=== PATIENT | female | born 1995 | race Caucasian/White ===

== ENCOUNTER 2017-11-17 20:17 | Emergency (ER) | payer MEDICAID, SELFPAY ==
[2017-11-17 20:17] VITALS: BP 124/64; PULSE 79; RESP 14; TEMP 36.6; O2SAT 98; BMI 30.2
--- NOTE | 2017-11-17 21:51 | ED.DCSUM_ITS ---
- ER Visit Summary Date of Service: 11/17/17 Chief Complaint: Headache History of Present Illness: The patient is a [address] Patient states in the last several months she has been getting headaches usually they are unilateral. Associated with photophobia. Denies any head trauma. On no blood thinners. No family history of intracranial bleeds or brain aneurysms. No significant family history of migraines. She denies any fever. Denies any neck pain. Denies any sinus congestion. Physical Examination: Vital signs stable afebrile. Well-appearing young female. No acute distress. Sitting in a darkened room. HEENT exam unremarkable. Pupils round reactive light. No signs of trauma. No facial droop. Normal speech. No sinus tenderness. Neck nontender. No meningismus. Able to easily flex and touch her chin to chest. Lungs clear to auscultation. Heart regular rhythm no murmur. Abdomen soft nontender. Moving all 4 extremities. Neurologically she is awake alert no focal motor or sensory deficits. Fingertip to nose heel to jones all within normal limits. NIH is 0. Test Results: None Emergency Department Course and Treatment: Patient treated his migraine headache. 1 L normal saline. IV Toradol, Benadryl and Zofran. Treatment Plan: Repeat exam at 2301 patient is doing well. Headache is resolved post medication. Neurologic exam is unchanged and remains normal. She is comfortable being discharged home. I will write her for Imitrex as needed for recurrent headaches. Disposition: Discharge Impression: Acute cephalgia Acute migraine headache This note was generated with [employer] dictation software. It may contain incorrect words, spelling, and punctuation that were not noted in review of the chart prior to signing ED Disposition - Plan for ED Patient: Chief Complaint: Headache Referrals: Care Physician,No Primary [Primary Care Provider] -
[2017-11-17] MEDS: DiphenhydrAMINE 50 MG/ML Syringe 25 MG IV (22:01)
[2017-11-17] MEDS: 0.9% Normal Saline 1,000 ML 1000 ML IV (22:01)
[2017-11-17] MEDS: Ketorolac 30 MG/ML Syringe IV (22:01)
[2017-11-17] MEDS: Ondansetron 4 MG/2 ML Vial IV (22:01)
--- NOTE | 2017-11-17 23:04 | ED.DEP ---
ED Disposition - Plan for ED Patient: Disposition: Home or Assisted Living Chief Complaint: Headache Instructions: ED Headache Migraine Prescriptions: Sumatriptan Succinate [Imitrex] 25 mg PO Q2H PRN PRN #10 tab PRN Reason: migraine headache Referrals: Nayan King MD [STAFF PHYSICIAN] - 1 Week if not improving Additional Instructions: Imitrex as needed for recurrent headaches. Follow-up with a local primary care physician. If headaches are getting worse or you develop other symptoms such as weakness you may need a CAT scan or MRI of the brain.
[2017-11-17 23:11] VITALS: BP 118/76; PULSE 77; RESP 16; O2SAT 98
== END 2017-11-17 23:13 | disposition home or self-care (01) ==
PROVIDERS: Emergency Provider Emergency Medicine
DX: G43.909 Migraine, unspecified, not intractable, without status migrainosus (principal)
CPT/HCPCS: 96361; 96374; 96375; 99283; J7030; J2405

== ENCOUNTER 2018-03-23 17:52 | Emergency (ER) | payer MEDICAID, SELFPAY ==
[2018-03-23 17:53] VITALS: PULSE 81; RESP 14; TEMP 36.2; O2SAT 100; BMI 28.8
[2018-03-23] MEDS: Ketorolac 30 MG/ML Syringe IV (18:53)
[2018-03-23] MEDS: Metoclopramide 10 MG/2 ML Vial IV (18:53)
[2018-03-23] MEDS: 0.9% Normal Saline 1,000 ML 999 ML IV (18:53)
--- NOTE | 2018-03-23 19:13 | ED.DCSUM_ITS ---
- ER Visit Summary Date of Service: 03/23/18 Chief Complaint: Headache History of Present Illness: The patient is a 22 F with no primary care physician. She reports that he has headache that began 2 days ago. Some intermittent pain last 30 seconds at a time. To the left parietal area and radiates to the right parietal area. She reports stated 10 or 7-10 currently. Is worsened by coughing and relieved by nothing. She had nausea without vomiting. No change in her vision. No numbness or weakness. No fever or chills. Patient reports that she fell approximate 1 week ago while going up the stairs. She did hit her head. She did have a loss of consciousness. She reports that she is not having any headache following this until 2 days ago. Physical Examination: Vitals: Stable. Afebrile. General: Well-nourished and well-developed. Head: Normocephalic atraumatic. Neck: Supple, no lymphadenopathy. No JVD. Nontender. Cardiovascular: Regular rate and rhythm. No murmurs. Respiratory: No respiratory distress. Clear to auscultation bilaterally. Abdominal: Soft, nontender, nondistended, normal bowel sounds. No guarding, rebound, or peritoneal signs. Back: Nontender. Extremities: Nontender, no edema. Skin: Normal color, no rash. Neurologic: Alert and oriented ?3. Cranial nerves II through XII are intact. Normal strength and sensation. Psych: Normal affect. Emergency Department Course and Treatment: Patient had an IV placed. She was given Toradol and Reglan IV. She had significant relief. Treatment Plan: Patient be discharged instructions to follow-up the [facility] in 1-2 days if not improving. Return to the emergency department for any worsening symptoms. Disposition: To home in improved and stable condition. Impression: 1 1. Cephalgia, acute. This note was generated with [employer] dictation software. It may contain incorrect words, spelling, and punctuation that were not noted in review of the chart prior to signing ED Disposition - Plan for ED Patient: Disposition: Home or Assisted Living Chief Complaint: Headache Instructions: ED Cephalgia Unspecified Referrals: Nayan King MD [STAFF PHYSICIAN] - 1-2 Days if not improving
[2018-03-23 19:44] VITALS: BP 114/79; PULSE 73; RESP 16; O2SAT 100
--- NOTE | 2018-03-23 19:45 | ED.RN ---
THIS NURSE REVIEWED D/C INSTRUCTIONS WITH PT. PT VERBALIZED UNDERSTANDING OF INSTRUCTIONS. IV D/C. IV CATHETER INTACT. PT TOLERATED WELL. PT DENIES FURTHER NEEDS OR QUESTIONS AT THIS TIME
== END 2018-03-23 19:47 | disposition home or self-care (01) ==
LOC: ED 18:43
PROVIDERS: Emergency Provider Emergency Medicine
DX: R51 Headache (principal)
CPT/HCPCS: 96361; 96374; 96375; 99283; J7030

== ENCOUNTER 2018-05-06 08:39 | Emergency (ER) | payer MEDICAID, SELFPAY ==
[2018-05-06 08:40] VITALS: BP 158/80; PULSE 121; RESP 16; TEMP 36.6; O2SAT 97; BMI 27.9
--- NOTE | 2018-05-06 08:48 | RAD_ITS ---
STUDY: X-RAY CHEST REASON FOR EXAM: Female, 22 years old. Dysphagia. Cough. TECHNIQUE: PA and lateral views of the chest. COMPARISON: None. FINDINGS: The lungs are clear and expanded. There is no demonstrated pleural abnormality. Normal size heart. Normal mediastinum and whit. Normal visualized pulmonary arteries. Normal visualized aortic arch and descending thoracic aorta. Normal visualized thoracic spine. Normal visualized ribs, clavicles, and shoulders. There is no demonstrated abnormality of the visualized soft tissue structures of the upper abdomen. RAD/Chest PA and Lateral IMPRESSION: Normal x-ray examination of the chest. Electronically Signed: Jan Sharma, at 10:10 EDT , Service support ,
[2018-05-06] MEDS: Acetaminophen 500 MG Tablet 1000 MG PO (09:02)
[2018-05-06 09:04] VITALS: BP 140/75; PULSE 121; RESP 16; TEMP 37.3; O2SAT 97
--- NOTE | 2018-05-06 09:06 | ED.DCSUM_ITS ---
- ER Visit Summary Date of Service: 05/06/18 Chief Complaint: Flulike illness History of Present Illness: The patient is a 22 F presents to the emergency department with flulike illness. Patient was in her normal state of health. On Friday, she began to have fevers, chills, myalgias, mild sore throat. She had a nonproductive cough. She states the fever will wax and wane. Her young son is sick with similar symptoms. She was not vaccinated. The patient is otherwise healthy. She has no history of immunosuppression. She is on no daily medications. She denies any underlying history of lung disease. Physical Examination: Vital signs reviewed General: Well-nourished, well-developed Head: Normocephalic, atraumatic Eyes: Pupils equal and reactive, extraocular muscles intact Neck, supple, no lymphadenopathy Heart: Regular rate and rhythm Respiratory: No distress, clear bilaterally Abdomen: Soft, nontender, nondistended, no peritoneal signs Back: Nontender Extremities: Nontender, no edema, no cords Skin: Normal color no rash Neuro: Alert and oriented, no focal or lateralizing deficits Test Results: [] Emergency Department Course and Treatment: The patient presents with symptoms of influenza. She also has a small lesion inside her right lower lip. She states that it was painful and she took out her lip piercing. She states that she began to have some swelling at the area. It does look like he is small abscess that is not actively draining. It is less than a centimeter. I do not feel the primary incision and drainage is necessary at this time. There is no cellulitis. I am going to place the patient on Bactrim for this. I did obtain a chest x-ray and a rapid flu. Both were unremarkable. The patient has had symptoms for 4 days now. She is outside the window for treatment with Tamiflu. She is well-appearing. I do feel that she is safe for outpatient therapy. I did mitochondrial disorders counselor her that if her lip is worsening in any way over the next 24-48 hours to return to the emergency department. She is comfortable with this plan of care. Treatment Plan: [] Disposition: Discharge Impression: 1. Influenza-like illness 2. Right lower lip abscess This note was generated with [employer] software. It may contain incorrect words, spelling, and punctuation that were not noted in review of the chart prior to signing ED Disposition - Plan for ED Patient: Instructions: ED Upper Resp Infec No Abx Tx Prescriptions: Smz/Tmp Ds [Bactrim Ds] 1 tab PO BID #14 tab Referrals: Care Physician,No Primary [Primary Care Provider] -
[2018-05-06 10:44] VITALS: BP 134/79; PULSE 110; RESP 16; TEMP 36.6; O2SAT 99
== END 2018-05-06 10:46 | disposition home or self-care (01) ==
LOC: ED 09:06
PROVIDERS: Emergency Provider Emergency Medicine
DX: J11.1 Influenza due to unidentified influenza virus with other respiratory manifestations (principal); K13.0 Diseases of lips; Z72.0 Tobacco use
CPT/HCPCS: 71046; 87804; 99283

== ENCOUNTER 2021-05-11 14:51 | Emergency (ER) | payer OTHER, SELFPAY ==
[2021-05-11 14:52] VITALS: BP 169/78; PULSE 120; RESP 16; TEMP 36.4; O2SAT 100; BMI 24.0
--- NOTE | 2021-05-11 15:16 | ED.RN ---
called corporate care for drug screen
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
[2021-05-11 17:08] VITALS: BP 124/78; PULSE 66; RESP 14; O2SAT 98
[2021-05-11 18:53] VITALS: BP 126/78; PULSE 78; RESP 16; TEMP 36.9; O2SAT 98
== END 2021-05-11 18:53 | disposition home or self-care (01) ==
PROVIDERS: Emergency Provider Physician Assistant; Visit Provider Physician Assistant
DX: T23.502A Corrosion of first degree of left hand, unspecified site, initial encounter (principal); T22.512A Corrosion of first degree of left forearm, initial encounter; X58.XXXA Exposure to other specified factors, initial encounter
CPT/HCPCS: 99283

== ENCOUNTER 2022-12-21 09:14 | Emergency (ER) | payer OTHER, SELFPAY ==
[2022-12-21 09:14] VITALS: BP 136/86; PULSE 70; RESP 16; TEMP 35.7; O2SAT 100; BMI 26.1
--- NOTE | 2022-12-21 09:26 | ED.VIS.LOWEX ---
HPI History of Present Illness Chief Complaint: Lower Extremity Injury Informant: patient Narrative Narrative: 27-year-old female presenting to the emergency department chief complaint of left foot injury. Patient had a shower door drop onto her left foot this morning. She notes her tetanus is up-to-date. Wound was cleansed with peroxide and bandage applied. She denies other injuries Tetanus Immunization: <5 years PFSH PFSH Medical History no medical history no medical history Home Medications NK 12/21/22 [History Last Taken Unknown] Allergy/AdvReac Type Severity Reaction Status Date / Time No Known Allergies Allergy Verified 05/18/21 17:38 Surgical History History of tonsillectomy Social History Smoking Status: Never smoker ROS ROS ED Constitutional Constitutional ED: Denies chills or weight loss Eyes Eyes: Denies change in vision or diplopia ENT ENT ED: Denies ear pain, rhinorrhea or sore throat Cardiovascular Cardiovascular: Denies chest pain, orthopnea, palpitations or racing heartbeat Respiratory/Chest Respiratory/Chest: Denies cough, dyspnea or orthopnea Gastrointestinal Gastrointestinal: Denies abdominal pain, diarrhea, nausea or vomiting Genitourinary Genitourinary ED: Denies dysuria, hematuria or urinary frequency Musculoskeletal Musculoskeletal: Reports other Details: Left foot pain ; Denies arthralgias or myalgias Integumentary Reports other Details: Foot laceration ; Denies abscess or rash Neurologic Neurologic: Denies headache(s) or weakness Psychiatric Psychiatric: Denies anxiety, depression, suicidal ideation or suicidal thoughts Endocrine Endocrinology: Denies polydipsia, polyphagia or polyuria Allergic/Immunologic Allergic/Immunologic ED: Denies mouth swelling, tongue swelling or urticaria EXAM Physical Exam Const Vital Signs: 12/21/22 09:14 Temperature 96.2 F L Temperature Source Temporal Pulse Rate 70 Respiratory Rate 16 Blood Pressure 136/86 H Blood Pressure Mean 102 Pulse Ox 100 Oxygen Delivery Method Room Air Positive well nourished and well developed General Appearance ED: well developed HEENT Reports normocephalic, head/scalp atraumatic and moist mucous membranes Eyes PERRL and EOMs intact bilaterally Neck no lymphadenopathy, supple and no JVD Resp normal respiratory effort and clear to auscultation bilaterally Cardio regular rate, regular rhythm and no murmurs GI normal to inspection, nondistended, normoactive bowel sounds and non-tender Palpation: soft Back/Spine no CVA tenderness and normal ROM Extremity full ROM; Negative for normal to inspection Extremity Narrative: There is a 3 cm laceration located on the dorsal lateral aspect of the left foot. It is gaping by 5 mm. No active bleeding. There is associated hematoma around the wound. Neurovascularly intact. Ambulates well. General Extremety ED: Negative for edema General Extremity: Negative for edema Neuro oriented x3 and CN's II-XII intact bilaterally Sensorium / Orientation: alert Motor Exam: strength 5/5 throughout Psych mental status grossly normal Mood & Affect: Negative for depressed or tearful Skin no rashes or lesions noted Skin Narrative: see extremity exam Trauma: laceration linear, No actively bleeding, No pulsatile bleeding, No foreign body present, No contaminated, involves subcutaneous tissue, No involves muscle tissue, motor nerve function intact and sensation intact MDM MDM MDM Narrative Medical decision making narrative: My independent interpretation of the three-view left foot x-ray is no acute fracture. Let was applied to the wound. After adequate time the skin around the wound had turned white. Local 1% lidocaine was used to further complete anesthesia of the skin. It was washed with Shur-Clens and explored. It was irrigated no foreign bodies were noted. The wound was closed using a total of 4 simple erupted 4-0 Ethilon sutures. Wound care discussed with patient. Nursing dressed the wound. Stitches will need to be removed in 10 days. Radiography Diagnostic Testing: Clinical Impression(s) from Imaging Studies Foot X-Ray 12/21/22 09:40 IMPRESSION: 1. Lobular soft tissue density is present over the base of the fifth metatarsal, most likely representing some type of bandage material covering the wound. 2. No visualized fracture or radiopaque foreign body. Electronically Signed: Gary Rooney MD at 10:14 EDT , Discharge Plan Triage Chief Complaint: Lower Extremity Injury ED Provider: Nam Malone Dx/Rx/DC Orders Clinical Impression: Contusion of foot, Foot laceration Instructions: ED Foot Contusion, ED Laceration, Foot: All Closures Prescriptions: No Action NK Primary Care Provider: Care Physician,No Primary Referrals: Primo Gupta MD [Med Staff - Research Associate Quality Control Qc] - 10 Day for suture removal Care Physician,No Primary [Primary Care Provider] - Activity Restrictions/Additional Instructions: Stitches will need to be removed in 10 days. Please keep wound clean. Showers and soap are fine. I would apply an antibiotic ointment at least once a day. While wearing socks and shoes please keep a dressing on the wound. Disposition Disposition: Home, Self Care
--- NOTE | 2022-12-21 09:40 | RAD_ITS ---
STUDY: X-RAY - LEFT FOOT CLINICAL: Female, 27 years old. injury TECHNIQUE: 3 view(s) of the foot. COMPARISON: None. FINDINGS: Normal talus, calcaneus, and tarsal bones. No visualized fracture or radiopaque foreign body. Lobular soft tissue density is present over the base of the fifth metatarsal, most likely representing some type of bandage material covering the wound. Normal visualized subtalar, talonavicular, calcaneocuboid, tarsal and tarsometatarsal articulations. Normal metatarsi. Normal metatarsophalangeal joint of the great toe. Normal tibial and fibular sesamoid bones. Normal interphalangeal joint of the great toe. Normal phalanges of the great toe. Normal second through fifth metatarsophalangeal joints. Normal interphalangeal joints and phalanges of the lesser toes. The soft tissue structures are unremarkable. RAD/Foot min 3 Views IMPRESSION: 1. Lobular soft tissue density is present over the base of the fifth metatarsal, most likely representing some type of bandage material covering the wound. 2. No visualized fracture or radiopaque foreign body. Electronically Signed: Gary Rooney MD at 10:14 EDT Reading Location ID and State: [facility] / [place] , Service support ,
[2022-12-21] MEDS: Lidocaine/Epi/Tetracaine 50 ML 1 APPLIC TOPICAL (10:18)
[2022-12-21] MEDS: Lidocaine 1% (20 ml mdv) 20 ML Vial INFILT (10:18)
== END 2022-12-21 10:20 | disposition home or self-care (01) ==
LOC: ED 09:40
PROVIDERS: Emergency Provider Emergency Medicine; Visit Provider Emergency Medicine
DX: S90.32XA Contusion of left foot, initial encounter (principal); S91.312A Laceration without foreign body, left foot, initial encounter; X58.XXXA Exposure to other specified factors, initial encounter
CPT/HCPCS: 12002; 73630; 99285

== ENCOUNTER 2023-01-06 10:49 | Emergency (ER) | payer OTHER, SELFPAY ==
[2023-01-06 10:52] VITALS: BP 118/82; PULSE 74; RESP 18; TEMP 35.8; O2SAT 100; BMI 26.2
--- NOTE | 2023-01-06 11:14 | EDS_ITS ---
HPI <JACOBY Sapp - Last Filed: 01/06/23 11:33> History of Present Illness Chief Complaint: Wound Check Narrative Narrative: 27-year-old female had sutures removed from her left foot on December 31. Over the last couple days it looked red and pus drained from it yesterday. She put peroxide on it and it seems better today but she is here to be evaluated. No fever or chills. She states her right ear also hurts over the last few days. No cold symptoms PFSH <JACOBY Sapp - Last Filed: 01/06/23 11:33> PFSH Home Medications cephalexin 500 mg capsule 500 mg PO Q6 #28 CAPSULES 01/06/23 [Rx Last Taken Unknown] Allergy/AdvReac Type Severity Reaction Status Date / Time No Known Allergies Allergy Verified 01/06/23 10:52 Surgical History History of tonsillectomy Social History Smoking Status: Never smoker ROS <JACOBY Sapp - Last Filed: 01/06/23 11:33> ROS ED ROS Narrative Constitutional: Negative for fever, chills, malaise. ENT: Positive for ear pain. Negative for sore throat, rhinorrhea. Neuro: Negative for motor/sensory dysfunction. Skin: Positive for wound. EXAM <JACOBY Sapp Last Filed: 01/06/23 11:33> Physical Exam Narrative Exam Narrative: CONST: Patient sitting in no acute distress. EYES: Normal inspection. NECK: Normal inspection. ENT: Normal TMs bilaterally, nares clear, normal posterior oropharynx. RESP: No respiratory distress, CTAB. CVS: Regular rate and rhythm, no murmur, no gallop. SKIN: 3 cm healing linear wound dorsal left midfoot with minimal halo of erythema that looks more like healing granulation tissue than infected. No fluctuance or crepitus, no drainage. EXTREMITIES: Normal appearance, 2+ DP pulses NEURO: Oriented x4. PSYCH: Normal affect. Const Vital Signs: 01/06/23 10:52 Temperature 96.5 F L Temperature Source Temporal Pulse Rate 74 Respiratory Rate 18 Blood Pressure 118/82 H Blood Pressure Mean 94 Pulse Ox 100 Oxygen Delivery Method Room Air <Dr. Eze Robbins MD - Last Filed: 01/06/23 11:44> Physical Exam Const Vital Signs: 01/06/23 10:52 Temperature 96.5 F L Temperature Source Temporal Pulse Rate 74 Respiratory Rate 18 Blood Pressure 118/82 H Blood Pressure Mean 94 Pulse Ox 100 Oxygen Delivery Method Room Air [facility] <JACOBY Sapp - Last Filed: 01/06/23 11:33> [facility] Narrative Medical decision making narrative: Patient has a healing wound on left dorsal foot where she had prior sutures. She states pus drained from the area yesterday. There is no evidence of an abscess now. There is minimal surrounding erythema which could be normal healing versus cellulitis. Extremity is neurovascularly intact. I prescribed Keflex with wound care instructions. She also complained of right ear pain but has an unremarkable exam. I recommended Tylenol Motrin and she was discharged in stable condition. <Dr. Eze Robbins MD - Last Filed: 01/06/23 11:44> [facility] Narrative Medical decision making narrative: Patient has a healing wound on left dorsal foot where she had prior sutures. She states pus drained from the area yesterday. There is no evidence of an abscess now. There is minimal surrounding erythema which could be normal healing versus cellulitis. Extremity is neurovascularly intact. I prescribed Keflex with wound care instructions. She also complained of right ear pain but has an unremarkable exam. I recommended Tylenol Motrin and she was discharged in stable condition. I have personally performed a face to face assessment of the patient and have reviewed the MARTI Note. I performed a substantive portion of the visit including all aspects of the following. My thomas findings include: History is 27-year-old female returns for suture removal of the laceration pair of her left foot. Exam is [well-appearing 27-year-old female. Vital signs stable afebrile. Left foot has a well-healed laceration. Currently there is no signs of infection. There is no redness or pus. There is no significant swelling. There is no streaks. Normal DP pulse. She cannot wiggle her left small and fourth toe very well. She will follow-up with that if it does not improve. There was no history of any tendon laceration.] Medical Decision Making [patient be placed on Keflex for 1 week. Outpatient follow-up as needed if she has not had normal range of motion back to her left lateral toes.] Other additions or changes: [None] Discharge Plan Triage Chief Complaint: Wound Check Other Complaint: Ear Problem ED Midlevel Provider: Michelle Zuñiga ED Provider: Eze Robbins Dx/Rx/DC Orders Clinical Impression: Wound of left foot Instructions: Caring for Your Incision Prescriptions: New cephalexin 500 mg capsule 500 mg PO Q6 Qty: 28 0RF Primary Care Provider: Care Physician,No Primary Referrals: Care Physician,No Primary [Primary Care Provider] - Activity Restrictions/Additional Instructions: Gently clean with soap and water and take the antibiotics. If you develop worsening redness, swelling, or fever return to the ER Disposition Disposition: Home, Self Care
[2023-01-06] MEDS: Cephalexin 250 MG Capsule 500 MG PO (12:00)
== END 2023-01-06 12:04 | disposition home or self-care (01) ==
LOC: ED 11:33
PROVIDERS: Emergency Provider Emergency Medicine; Visit Provider Emergency Medicine
DX: S91.302A Unspecified open wound, left foot, initial encounter (principal); X58.XXXA Exposure to other specified factors, initial encounter
CPT/HCPCS: 99283

== ENCOUNTER 2024-05-08 16:08 | Emergency (ER) | payer MEDICAID, SELFPAY ==
[2024-05-08 16:09] VITALS: BP 122/79; PULSE 110; RESP 18; TEMP 36.6; O2SAT 100; BMI 36.8
--- NOTE | 2024-05-08 16:20 | EX.ED.DYSGE1 ---
HPI <JACOBY Sapp - Last Filed: 05/08/24 17:34> History of Present Illness Chief Complaint: Wound Narrative Narrative: 28-year-old female has had 2 dermal piercings in her left arm that were done 5 years ago. They occasionally get irritated and red. This morning one of them started to become red and irritated and she presents requesting to have them removed. The external jewel part of the piercings has fallen off and only posterior remains in the skin. She has no fever chills or drainage from the area. She is currently 33 weeks . PFSH <JACOBY Sapp - Last Filed: 05/08/24 17:34> PFSH Home Medications ?Medication ?Instructions ?Recorded ?Last Taken ?Type aspirin 81 mg tablet,delayed 81 mg PO DAILY 05/08/24 Unknown History release Allergy/AdvReac Type Severity Reaction Status Date / Time No Known Allergies Allergy Verified 05/08/24 16:09 Surgical History History of tonsillectomy Social History Smoking Status: Never smoker ROS <JACOBY Sapp - Last Filed: 05/08/24 17:34> ROS ED ROS Narrative Constitutional: Negative for fever, chills, malaise. GI: Negative for nausea, vomiting. Neuro: Negative for motor/sensory dysfunction. Skin: Negative for rash. EXAM <JACOBY Sapp - Last Filed: 05/08/24 17:34> Physical Exam Narrative Exam Narrative: CONST: Patient sitting in no acute distress. EYES: Normal inspection. NECK: Normal inspection. RESP: No respiratory distress, CTAB. CVS: Regular rate and rhythm, no murmur, no gallop. SKIN: 2 small metal post piercings left shoulder. No surrounding erythema, warmth, fluctuance or drainage. EXTREMITIES: Normal appearance, no pedal edema. NEURO: Alert and answering questions appropriately. PSYCH: Normal affect. Const Vital Signs: 05/08/24 16:09 05/08/24 17:26 Temperature 97.9 F 98.6 F Temperature Source Temporal Pulse Rate 110 H 81 Respiratory Rate 18 18 Blood Pressure 122/79 H 131/54 H Blood Pressure Mean 93 79 Pulse Ox 100 98 Oxygen Delivery Method Room Air <Dr. Eze Robbins MD - Last Filed: 05/08/24 17:25> Physical Exam Const Vital Signs: 05/08/24 16:09 05/08/24 17:26 Temperature 97.9 F 98.6 F Temperature Source Temporal Pulse Rate 110 H 81 Respiratory Rate 18 18 Blood Pressure 122/79 H 131/54 H Blood Pressure Mean 93 79 Pulse Ox 100 98 Oxygen Delivery Method Room Air MDM <Dr. Eze Robbins MD - Last Filed: 05/08/24 17:25> MDM MDM Narrative Medical decision making narrative: I have personally performed a face to face assessment of the patient and have reviewed the MARTI Note. I performed a substantive portion of the visit including all aspects of the following. My thomas findings include: History is 28-year-old female currently 33 weeks . Has 2 dermal piercings on her left shoulder she just 1 to make sure they were not infected. is going well. No bleeding or pain. She is due in June. Exam is [well-appearing 28-year-old female. Vital signs stable afebrile. H EENT exam normal. Lungs clear. Heart regular rhythm no murmur rate about 100. Abdomen soft nontender normal bowel sounds no peritoneal signs. Gravid uterus. Moving all 4 extremities. Neurovascularly intact. Left shoulder 2 piercings small no infection. No cellulitis. No pus or discharge. No discoloration. Nontender. Clinically they look fine.] Medical Decision Making [piercing evaluation nothing needs to be done at this time patient is comfortable with not having them removed.] Other additions or changes: [None] Discharge Plan Triage Chief Complaint: Wound ED Midlevel Provider: Michelle Zuñiga ED Provider: Eze Robbins Dx/Rx/DC Orders Clinical Impression: Encounter for evaluation of wound, Body piercing, Visit for wound care, Third trimester Prescriptions: No Action aspirin 81 mg tablet,delayed release (DR/EC) 81 mg PO DAILY Primary Care Provider: Care Physician,No Primary Referrals: Care Physician,No Primary [Primary Care Provider] - Activity Restrictions/Additional Instructions: I recommend you see a licensed supervisor sterile processing to have these removed. They do not look currently infected. Print Language: Urdu Disposition Disposition: Home, Self Care Discharge Date/Time: 05/08/24 17:32
[2024-05-08 17:26] VITALS: BP 131/54; PULSE 81; RESP 18; TEMP 37; O2SAT 98
== END 2024-05-08 17:32 | disposition home or self-care (01) ==
LOC: ED 16:40
PROVIDERS: Emergency Provider Emergency Medicine; Visit Provider Emergency Medicine
DX: O9A.213 Injury, poisoning and certain other consequences of external causes complicating pregnancy, third trimester (principal); S41.002A Unspecified open wound of left shoulder, initial encounter; Z3A.33 33 weeks gestation of pregnancy; Z79.82 Long term (current) use of aspirin; X58.XXXA Exposure to other specified factors, initial encounter
CPT/HCPCS: 99282

== ENCOUNTER 2024-07-21 07:17 | Inpatient (IN) | payer MEDICAID, SELFPAY ==
[2024-07-21] VITALS (91 sets, daily range): BP systolic 85–177; BP diastolic 44–131; PULSE 65–137; RESP 16–18; TEMP 35.9–38.3; O2SAT 92–100; BMI 34.4
[2024-07-21] MEDS: Lactated Ringers 1,000 ML 50 ML IV (07:50)
[2024-07-21 08:03] LABS: Hematocrit 42.1 % (37-47); Hemoglobin 14.6 g/dL (12.0-15.0); Mean Corp Hgb Conc 34.7 g/dL (32-36); Mean Corpuscular Hgb 30.7 pg (27.0-32.0); Mean Corpuscular Volume 88.4 fL (81-99); POSITIVE COUNT YES; POSITIVE MORPHOLOGY YES; Platelet Count 218 K/mm3 (150-450); RBC Distribution Width CV 14.4 % (11.6-14.6); RBC Distribution Width SD 46.4 fl (35.1-43.9); Red Blood Count 4.76 M/mm3 (4.2-5.4); White Blood Count 14.1 K/mm3 (4.4-11.0)
[2024-07-21 08:05] LABS: Differential Indicated MANUAL DIFF
[2024-07-21] MEDS: 0.9% Normal Saline Single 100 ML IV.SOLN. INTRA-UTER (08:20)
[2024-07-21] MEDS: LACTATED RINGERS 500 ML 999 ML IV ×2 (08:30→21:44)
--- NOTE | 2024-07-21 08:33 | PCM.HP.OB ---
HPI - General General Date of Admission: 07/21/24 HPI Narrative PANCHITO DOLAN, is a 29 F who presents at 41 weeks , son born 8 years ago. Presents for medically necessary induction of labor for postdates. 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 Home Medications ?Medication ?Instructions ?Recorded ?Last Taken ?Type aspirin 81 mg tablet,delayed 81 mg PO DAILY prophylatic 05/08/24 07/20/24 History release acetaminophen 500 mg tablet 1,000 mg PO PRN PRN pain 07/21/24 07/20/24 History (Tylenol Extra Strength) vit no.95-ferrous 1 tab PO DAILY 07/21/24 07/20/24 History fumarate 28 mg-folic acid 800 mcg tablet () Allergy/AdvReac Type Severity Reaction Status Date / Time No Known Allergies Allergy Verified 07/21/24 07:40 Surgical History (Updated 07/21/24 @ 08:40 by Azalia Cm CNM) History of tonsillectomy Social History Smoking Status: Never smoker History Elective abortions Hx Para 1 Spontaneous abortions Hx # Term Pregnancies Ectopic pregnancies Hx # Pregnancies Multiple births # of living children NST FHR Rate Baby A Baseline: 155 Variability:: Moderate Accelerations:: 15 x 15 Decelerations:: Variable FHR Category:: Category II Uterine Activity:: Irregular ROS Constitutional Constitutional: Reports systems reviewed and no addt'l complaints, except as documented; Denies headache(s) Eyes Eyes: Denies acute decrease in peripheral vision, blurry vision or change in vision ENT HEENT: Reports systems reviewed and no addt'l complaints, except as documented Cardiovascular Cardiovascular: Denies chest pain or dizziness Respiratory/Chest Respiratory/Chest: Denies cough, dyspnea, dyspnea on exertion, shortness of breath at rest or shortness of breath with exertion Gastrointestinal Gastrointestinal: Denies abdominal pain, diarrhea, nausea or vomiting Genitourinary Genitourinary: Denies abdominal discomfort Musculoskeletal Musculoskeletal: Denies limited range of motion Integumentary Integumentary: Reports systems reviewed and no addt'l complaints, except as documented Neurologic Neurologic: Reports systems reviewed and no addt'l complaints, except as documented Psychiatric Psychiatric: Reports systems reviewed and no addt'l complaints, except as documented Endocrine Endocrinology: Reports systems reviewed and no addt'l complaints, except as documented Hematologic/Lymphatic Hematologic/Lymphatic: Reports systems reviewed and no addt'l complaints, except as documented Allergic/Immunologic Allergic/Immunologic: Reports systems reviewed and no addt'l complaints, except as documented Vital Signs Vital Signs Vital Signs: 07/21/24 07:33 07/21/24 07:33 07/21/24 07:33 Temperature Temperature Source Pulse Rate 125 H Respiratory Rate 16 Blood Pressure 137/71 H BP Systolic 137 BP Diastolic 71 Pulse Ox 07/21/24 07:33 07/21/24 07:33 07/21/24 07:33 Temperature 97.8 F Temperature Source Temporal Pulse Rate Respiratory Rate Blood Pressure BP Systolic BP Diastolic Pulse Ox 99 Weight Weight: 201 lb Body Mass Index (BMI) 34.4 Physical Exam Const alert and oriented x3 General Appearance: cooperative Orientation / Consciousness: awake, oriented to person, oriented to place and oriented to time Exam Limitations: no limitations HEENT normocephalic Head and Scalp: normal to inspection, normocephalic and atraumatic Face and Sinus: normal facial exam Eyes General Eye: normal appearance of both eyes Neck full ROM Chest Chest: symmetrical chest wall rise Resp normal respiratory effort and normal air movement Auscultation: clear to auscultation bilaterally Cardio regular rate, regular rhythm, S1 normal heart sound, S2 normal heart sound, no murmurs, no rub, no gallops and no clicks GI normal to inspection, nondistended, normoactive bowel sounds and non-tender appearance of the vagina normal Bladder / Kidney Exam: no CVA tenderness Manual OB Exam: estimated gestational size appropriate, presentation cephalic, dilated 2cm, effaced 60%, station -3 and other morgan catheter inserted over stylus through cervix, 30ml NS instilled. Tolerated procedure well. Back/Spine normal ROM Extremity normal to inspection and full ROM Skin no rashes or lesions noted Neuro moves all extremities Sensorium / Orientation: awake, alert and oriented to person Motor Exam: clonus absent Deep Tendon Reflexes: Rt Patellar (L4): 2+ and Lt Patellar (L4): 2+ Labs Labs Labs: Blood Type AB POSITIVE Antibody Screen NEGATIVE Hct 42.1 % (37-47) Hgb 14.6 g/dL (12.0-15.0) Syphilis Total Ab Pending Rhogam given: No GBS negative RPR nonreactive GC/CT negative Rubella Immune HBsAG negative HepC negative HIV negative AB positive 1hr GCT negative Assessment & Plan (1) Encounter for induction of labor: (2) Post-dates : (3) 41 weeks gestation of : (4) History of chlamydia: COMMENT: 12/17/24-negative (5) History of vacuum extraction assisted delivery: PLAN: Plan 1) Admit to labor and delivery 2) Routine labs 3) Continuous EFM 4) Pain management upon request 5) Morgan for cervical ripening and pitocin 6) Dr. Marcus collaborative physician and notified of patient status, above assessment, and plan.
[2024-07-21 09:01] LABS: Eosinophil 3 % (0-5); Lymphocyte 18 % (19-41); Monocyte 1 % (0-10); Myelocyte 1 % (0-0); Neutrophil-Segmented 77 % (47-70); Platelet Estimate ADEQUATE (ADEQ); Red Cell Morphology NORM C+C NORMAL (NORM C&C); Total Cells Counted 100 (MANUAL DIFF)
[2024-07-21 09:02] LABS: Absolute Neutrophil Count 10.8 X10^3/uL (2.0-7.7)
[2024-07-21 09:20] LABS: Syphilis Antibodies Nonreactive (Nonreactive)
[2024-07-21] MEDS: Oxytocin 15 Units/NS 250ml 15 UNITS/250 ML IV.SOLN 2 UNITS IV (09:21)
[2024-07-21] MEDS: Lactated Ringers 1,000 ML 999 ML IV (11:20)
[2024-07-21] MEDS: fentaNYL-bupivacaine (epidural) 100 ML BAG EPIDURAL ×2 (12:17→16:51)
[2024-07-21] MEDS: Lactated Ringers 1,000 ML 200 ML IV ×2 (13:59→17:24)
[2024-07-21] MEDS: 0.9% Saline Lock 10 ML Syringe IV (14:18)
[2024-07-21] MEDS: Ondansetron 4 MG/2 ML Vial IV (14:18)
--- NOTE | 2024-07-21 19:55 | OB.VAGDELI_ITS ---
Assessment & Plan (1) Vaginal delivery: (2) First degree perineal laceration: Maternal Data Information SAMREEN Calculator Estimated Delivery Date Method Current WG Current Estimate 07/14/24 Manual 41w 0d Vaginal Delivery Maternal Presentation Maternal Presentation: Medically Indicated Induction Type of Induction: Pitocin and Nolan Bulb Vaginal Delivery Information Procedure Performed: Spontaneous Vaginal Delivery Date of Procedure: 07/21/24 Pre-Procedure Diagnosis: Induction of labor, 41 weeks Post-Procedure Diagnosis: , first degree perineal laceration Type of anesthesia: Epidural Estimated Blood Loss: 350ml Time of Delivery: 19:25 Findings Description of procedure: Progressed to complete with urge to push. Epidural for pain management. of viable female over first degree perineal laceation. APGARS 8,9 respectively. head delivered with body immediately forthcoming. Placed on maternal abdomen, strong cry. Mouth and nares suctioned for secretions. Pitocin started for active 3rd stage management. Cord doubly clamped and cut by FOB after pulsations ceased, delayed cord clamping. Placenta delivered intact via morrison, 3 vessel cord intact. Perineum inspected and revealed first degree perineal laceration. Repaired with 3.0 vicryl rapide and epidural Fundus firm and hemostasis achieved. EBL 350ml. Mom and baby stable, planning to breastfeed. Family bonding well. notified of delivery. 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
[2024-07-21] MEDS: Oxytocin 15 Units/NS 250ml 15 UNITS/250 ML IV.SOLN 83 UNITS IV (20:17)
[2024-07-21] MEDS: Acetaminophen 500 MG Tablet 1000 MG PO (21:13)
[2024-07-22 03:37] VITALS: BP 127/74; PULSE 102; RESP 16; TEMP 36.8; O2SAT 100
[2024-07-22] MEDS: Acetaminophen 500 MG Tablet 1000 MG PO ×4 (03:43→23:39)
[2024-07-22 06:30] LABS: Absolute Lymphocyte Count 1.97 X10^3/uL (0.83-4.51); Absolute Neutrophil Count 17.2 X10^3/uL (2.0-7.7); Basophil# 0.08 X10^3/uL; Basophil% 0.4 % (0-1); Eosinophil# 0.26 X10^3/uL; Eosinophils% 1.2 % (0-5); Hematocrit 37.1 % (37-47); Hemoglobin 12.5 g/dL (12.0-15.0); Lymphocyte # 1.97 X10^3/ul (0.83-4.51); Lymphocyte % 9.2 % (19-41); Mean Corp Hgb Conc 33.7 g/dL (32-36); Mean Platelet Vol. 11.1 fl (6.2-12.0); Monocyte# 1.42 X10^3/uL; Monocyte% 6.6 % (0-10); NRBC Flagged by Analyzer 0 % (0-5); Neutrophil # 17.23 X10^3/uL (2.7-7.7); Neutrophil % 80.5 % (47-70); Platelet Count 163 K/mm3 (150-450); RBC Distribution Width CV 14.6 % (11.6-14.6); RBC Distribution Width SD 47.3 fl (35.1-43.9); Red Blood Count 4.17 M/mm3 (4.2-5.4); White Blood Count 21.4 K/mm3 (4.4-11.0)
[2024-07-22] MEDS: Ibuprofen 600 MG Tablet PO ×3 (06:30→18:30)
--- NOTE | 2024-07-22 07:06 | NURSING ---
RN at bedside to draw AM labs. Patient questioning labs, RN educated patient on the importance of a CBC. Patient stated she is too afraid of needles and doesn't want her labs. RN stated she is allowed to refuse or wait till provider rounds to discuss POC. Patient states RN can draw labs. RN draws labs at 0620 patient jerking in bed with lab draw and states she doesn't want to. RN asks if RN can proceed. Patient verbalizes consent.
[2024-07-22 07:35] VITALS: BP 130/84; PULSE 86; RESP 16; TEMP 36.3; O2SAT 100
--- NOTE | 2024-07-22 08:50 | PCM.PN.BLA ---
Progress Note some cramping pain. Average lochia. No other c/o Physical Exam Const alert and no apparent distress Narrative: Fundus firm, below umbilicus. Assessment & Plan Assessment/Plan (1) First degree perineal laceration: PLAN: routine PP care, likely home tomorrow (2) Vaginal delivery:
[2024-07-22 12:54] VITALS: BP 138/70; PULSE 85; RESP 16; TEMP 36.8; O2SAT 98
[2024-07-22 16:50] VITALS: BP 134/69; PULSE 79; RESP 16; TEMP 36.8; O2SAT 100
[2024-07-22 20:23] VITALS: BP 142/93; PULSE 85; RESP 16; TEMP 36.6; O2SAT 99
[2024-07-22 23:10] VITALS: BP 123/82; PULSE 89; RESP 16; TEMP 36.6; O2SAT 99
[2024-07-23] MEDS: Ibuprofen 600 MG Tablet PO ×2 (03:17→09:31)
[2024-07-23 04:55] VITALS: BP 105/54; PULSE 77; RESP 16; TEMP 36.8; O2SAT 97
[2024-07-23] MEDS: Acetaminophen 500 MG Tablet 1000 MG PO (05:54)
[2024-07-23 08:28] VITALS: BP 133/70; RESP 16; TEMP 36.6
--- NOTE | 2024-07-23 08:46 | PCM.DC.SUM ---
Providers Date of Admission: 07/21/24 Date of Discharge: 07/23/24 Primary Care Physician: Sana Primary Care Phys Reason For Visit: VAG Diagnosis Discharge Diagnosis (1) First degree perineal laceration: Status: Acute Code(s): O70.0 - First degree perineal laceration during delivery Plan: routine PP care, likely home tomorrow (2) Vaginal delivery: Status: Acute Code(s): O80 - Encounter for full-term uncomplicated delivery Medications at Discharge Home Medications acetaminophen 500 mg tablet (Tylenol Extra Strength) 1,000 mg PO PRN PRN pain 07/21/24 vit no.95-ferrous fumarate 28 mg-folic acid 800 mcg tablet () 1 tab PO DAILY 07/21/24 Hospital Course Operations - () Procedures None Summary of Care Provided Minutes Spent on Discharge: 14 Hospital Course: Patient was admitted for induction of labor due to being 41 weeks gestation on 07/21/2024. She had a vaginal delivery without complication. By day #2 she was ambulating urinating tolerating regular diet was discharged home with routine instructions and follow-up in the office in 1-2 and 6 weeks or as needed. Weight / BMI Weight Weight: 91.172 kg Body Mass Index (BMI) 34.4 ABG / Lab / Microbiology Data 07/21/24 07:48 D/C Instructions Discharge Diet: No restrictions May resume sexual activity in: 6 weeks Call your doctor if your incision/area has: Continuous Slow Oozing, Sudden Increased Bleeding, Foul Smelling Discharge and Swelling at the incision site Call your doctor if you observe: Fever of 101 or Higher and Inability to urinate DC O2, CPAP, BIPAP Needs Home O2 Discharge instructions: No Please Follow Up With: Azalia Cm CNM When: Follow up with our office in 1-2 and 6 weeks or as needed. [phone] Meaningful Use Info Meaningful Use Meaningful Use Diagnoses (Choose all that apply): None applicable Ischemic Stroke Statin Dosing Therapy Reference: STATIN DOSE THERAPY REFERENCE: * Patients > 75 years receive moderate or high dose statin therapy. * Patients 75 years or YOUNGER should receive HIGH intensity statin dose unless contraindicated. You will be required to document reason for non-treatment if statin daily dose does not meet guidelines. HIGH DOSE STATIN THERAPY DAILY Atorvastatin > than or = to 40 mg Rosuvastatin > than or = to 20 mg Amlodipine + Atorvastatin > than or = to 2.5/40 mg Ezetimibe + Simvastatin 10/80 mg Simvastatin 80mg Discharge Plan Admission Admit Date/Time: 07/21/24 07:17 Primary Reason for Your Visit: Vaginal delivery Attending Provider: Azalia Cm Primary Care Provider: Care Physician,No Primary Discharge Orders/Prescriptions Prescriptions: Continued acetaminophen [Tylenol Extra Strength] 500 mg tablet 1,000 mg PO PRN PRN (Reason: pain) PNV cmb#95-ferrous fumarate-FA [] 28 mg iron- 800 mcg tablet 1 tab PO DAILY Discontinued aspirin 81 mg tablet,delayed release (DR/EC) 81 mg PO DAILY Referrals / Follow Up: Care Physician,No Primary [Primary Care Provider] - Disposition Disposition (needs filled in before D/C Order can be placed): Home, Self Care
--- NOTE | 2024-07-23 08:51 | PCM.PROGNOTE ---
Subjective Subjective patient seen at bedside, doing well. Patient reports good pain control. lochia mild. Objective Data Objective Data Vital Signs: Vital Signs Temp Pulse Resp BP Pulse Ox O2 Del Method 98 F 77 16 133/70 H 97 Room Air 07/23/24 08:28 07/23/24 04:55 07/23/24 08:28 07/23/24 08:28 07/23/24 04:55 07/23/24 04:55 Oxygen Delivery Method Room Air Weight: 91.172 kg Body Mass Index (BMI) 34.4 Intake & Output: Intake and Output for Last 24 Hours 07/21/24 07/22/24 07/23/24 23:59 23:59 23:59 Intake Total 4015.82 / 4015.82 Output Total 1550 / 1550 900 / 900 Balance 2465.82 / 2465.82 -900 / -900 Lab / Micro Data 07/21/24 07:48 Physical Exam Narrative Abd: fundus firm. Const alert and oriented x3 General Appearance: cooperative HEENT normocephalic Neck General: normal visual inspection GI soft to palpation and non-distended GI Narrative: Fundus firm Extremity normal to inspection and no calf tenderness Skin no rashes or lesions noted Neuro oriented x3 and CN's II-XII intact bilaterally Psych mental status grossly normal Assessment & Plan Assessment/Plan (1) First degree perineal laceration: (2) Vaginal delivery: PLAN: Plan PPD# 2 , Doing well Routine care pain mgmt ambulation dc home
--- NOTE | 2024-07-23 11:46 | CASEMGMT ---
Labor and Delivery Social Work Note Date of referral: 07/21/24 Time of referral: 0753 Date of intervention: 07/22/24 Time of intervention: 1430 Referral course: Azalia Cm Reason for referral: mother no longer living, but was alcoholic mental health Sw completed chart review and acknowledges social work consult. Sw presented to bedside and introduced self to mother of baby (MOB- Alexia) and father of baby (FOB- Hector). Sw explained reason for sw involvement and completed psychosocial assessment. History: SKIP is 29 year old female who is gravid 2, para 1- now 2 following labor and delivery of . SKIP received routine care during with [facility]. SKIP presented to hospital for induction of labor due to postdates. SKIP delivered baby via vaginal delivery on 07/21/24 via vaginal delivery. Baby girl, named Roman, was born weighing 8lb 13oz with apgars of 8 and 9 at one and five minutes of life, respectfully. SKIP states that she is breast feeding and baby will be followed by Dr. Carreno for pediatrics. SKIP and FOMonique report that they have been together for 1.5 years. 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 SKIP states that her first son is 7 years old and is a non- verbal autistic individual who undertstands that baby is here, and she is anxious to introduce them to each other. SKIP and TOM reside together with paternal grandpa, parents deny any problems or concerns with housing, reporting it to be safe and secure. Parents have reliable transportation and have obtained all necessary baby supplies, including: car seat, safe sleep space, clothes, diapers and wipes. MOB and FOB both graduated from high school and FOMonique has some college education. MOB and FOB both deny mental health history. Both parents also deny PTSD or trauma history. MOB expressed understanding pf baby blues and depression. SKIP denies experiencing any symptoms after her son was born. Nursing staff report that they were concerns about maternal mental health, while meeting with sw SKIP was talkative and engaging with baby appropriately. Sw discussed substance use, including family history. SKIP states that she does not drink or do drugs because she does not like how alcohol makes her feel. Both parents deny any problems or concerns with substances. Assessment: MOB was observed laying in bed appropriately caring for baby and was attentive to her needs. FOB sitting on couch at bedside and was attentive to MOB's needs. FOB talkative throughout conversatin and answered a lot of questions asked by sw. Parents report to having all necessary baby supplies and natural supports in place. Parents were talkative and engaging, and recepitve to sw involvement. Parents understanding of shaken baby prevention and ABCs of safe sleep. Plan: MOB and baby to be discharged when medically ready. Hand outs and literature provided to parents regarding: anxiety, depression and baby blues, list of [facility] resources, shaken baby prevention and ABCs of safe sleep, and Help Me Grow. No ongoing needs at this time. Donna Pressley, HAT MENDER, [employer]
--- NOTE | 2024-07-27 16:07 | NURSING ---
F/U phone call done while patient was here for a consult. Pt states she is feeling well overall, her bleeding is slowing down, and she denies any headaches, visual disturbances, or epigastric pain. Pt denies any post- blues and was satisfied with her care. No questions at this time.
[2024-07-28 10:14] LABS: Pathologist Review Reviewed
== END 2024-07-23 10:05 | disposition home or self-care (01) | DRG 560 ==
PROVIDERS: Admitting Provider Advanced Practice Midwife; Referring Provider Advanced Practice Midwife; Visit Provider Advanced Practice Midwife
DX: O48.0 Post-term pregnancy (principal); Z37.0 Single live birth; O70.0 First degree perineal laceration during delivery; Z3A.41 41 weeks gestation of pregnancy; Z87.59 Personal history of other complications of pregnancy, childbirth and the puerperium
CPT/HCPCS: 59025; 59050; 85025; 86780; 86850; 86900; 86901; 99221; A4216; G0378; J2405

== ENCOUNTER 2024-08-01 19:30 | Emergency (ER) | payer MEDICAID, SELFPAY ==
[2024-08-01 19:31] VITALS: BP 126/74; PULSE 78; RESP 20; TEMP 35.6; O2SAT 100; BMI 30.6
--- NOTE | 2024-08-01 19:50 | EDS_ITS ---
HPI History of Present Illness Chief Complaint: Upper Extremity Injury Informant: patient Narrative Narrative: Patient is a 21-year-old female 11 days presenting with a ring stuck on her left ring finger. Patient states about an hour or 2 prior to arrival she tried to force on her ring which she states was too small for her. She then could not get it off. She then came to the emergency room further evaluation. No other complaints or concerns reported at this time. States that she has been doing well . She is pumping. [facility] Medical History History of chlamydia Chlamydia infection affecting HPV (human papilloma virus) infection Home Medications ?Medication ?Instructions ?Recorded ?Last Taken ?Type acetaminophen 500 mg tablet 1,000 mg PO PRN PRN pain 0 07/21/24 07/20/24 History (Tylenol Extra Strength) Collagen Placenta 08/01/24 Unknown History post 08/01/24 Unknown History Allergy/AdvReac Type Severity Reaction Status Date / Time No Known Allergies Allergy Verified 07/21/24 07:40 Family History no significant family his Surgical History History of tonsillectomy Surgical History no surgical history Social History Smoking Status: Never smoker ROS ROS ED Constitutional Constitutional ED: Denies fever(s) Musculoskeletal Musculoskeletal: Reports other Details: Left ring finger pain with ring stuck on Integumentary Reports other Details: Redness to left ring finger Neurologic Neurologic: Denies paresthesias or weakness Hematologic/Lymphatic Hematologic/Lymphatic: Denies easy bleeding or easy bruising EXAM Physical Exam Const Vital Signs: 08/01/24 19:31 Temperature 96.1 F L Temperature Source Temporal Pulse Rate 78 Respiratory Rate 20 H Blood Pressure 126/74 H Blood Pressure Mean 91 Pulse Ox 100 Oxygen Delivery Method Room Air Positive well nourished and well developed General Appearance ED: well developed and NAD Chest Wall inspection of chest normal Resp normal respiratory effort Cardio regular rate and regular rhythm Cardio Narrative: 2+ radial pulse Extremity Extremity Narrative: Normal range of motion of the fingers. Neuro oriented x3 and moves all extremities Sensorium / Orientation: alert Motor Exam: muscle tone normal throughout Psych mental status grossly normal Skin Skin Narrative: Localized erythema and slight swelling to the proximal phalanges of the left ring finger consistent with trying to pull a ring off. No bruising appreciated. MDM MDM MDM Narrative Medical decision making narrative: Patient evaluated for ring stuck on her left ring finger. It was cut off by nursing staff. Patient has no further complaints or concerns. States her finger feels better now that the ring has been removed. Discharged home in stable condition. Discharge Plan Triage Chief Complaint: Upper Extremity Injury ED Provider: Fidelina Nails Dx/Rx/DC Orders Clinical Impression: Ring or other jewelry causing external constriction, initial encounter Instructions: ED Ring Removal (Adult) Prescriptions: No Action acetaminophen [Tylenol Extra Strength] 500 mg tablet 1,000 mg PO PRN PRN (Reason: pain) PNV [id number] fumarate-FA [] 28 mg iron- 800 mcg tablet 1 tab PO DAILY Primary Care Provider: Care Physician,No Primary Referrals: Care Physician,No Primary [Primary Care Provider] - Print Language: Maldivian Disposition Disposition: Home, Self Care
--- OUTSIDE RECORDS SUMMARY | 2024-08-01 19:55 | XMS RPT_ITS | CCD ---
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 lb Body Mass Index (BMI) 34.4 Physical Exam Const alert and oriented x3 General Appearance: cooperative Orientation / Consciousness: awake, oriented to person, oriented to place and oriented to time Exam Limitations: no limitations HEENT normocephalic Head and Scalp: normal to inspection, normocephalic and atraumatic Face and Sinus: normal facial exam Eyes General Eye: normal appearance of both eyes Neck full ROM Chest Chest: symmetrical chest wall rise Resp normal respiratory effort and normal air movement Auscultation: clear to auscultation bilaterally Cardio regular rate, regular rhythm, S1 normal heart sound, S2 normal heart sound, no murmurs, no rub, no gallops and no clicks GI normal to inspection, nondistended, normoactive bowel sounds and non-tender appearance of the vagina normal Bladder / Kidney Exam: no CVA tenderness Manual OB Exam: estimated gestational size appropriate, presentati (more content not included)... Normal [facility] Hematocrit Auto (Bld) [Volum e fraction]Ordered By: Azalia Cm on 07-21-2024 Hematocrit (Bld) [Volume fraction] 42.1 % 37-47 [facility] Hemoglobin measurementOrdere d By: Azalia Cm on 07-21-2024 Hemoglobin (Bld) [Mass/Vol] 14.6 g/dL 12.0-15.0 [facility] Immature granulocytes/100 WB C Auto (Bld)Ordered By: Azalia Cm on 07-21-2024 Immature granulocytes/100 WBC (Bld) 2.100 % High 0.0-0.9 [facility] Comment on above: IG% - Immature Granu locytes (promyelocytes, myelocytes and metamyelocytes) > 1% indicates that a LEFT SHIFT is Present. MCV (mean corpuscular volume ) determinationOrdered By: Azalia Cm on 07-21-2024 MCV (RBC) [Entitic vol] 88.4 fL 81-99 [facility] MR/OB.VAGDELIon 07-21-2024 [facility] Medical Records Department [address] [place] [address] OB Vaginal Delivery 07/21/241954 MR#: [id number] Acct: [id number] Name: ALEXIA ALANIZ Rep #: [id number] : 1995 29 From: Azalia Cm CNM PCP: Care Physician,No Primary Status:ADM IN Location: [id number] Assessment Plan (1) Vaginal delivery: (2) First degree perineal laceration: Maternal Data Information SAMREEN Calculator Estimated Delivery Date Method Current WG Current Estimate 07/14/24 Manual 41w 0d Vaginal Delivery Maternal Presentation Maternal Presentation: Medically Indicated Induction Type of Induction: Pitocin and Nolan Bulb Vaginal Delivery Information Procedure Performed: Spontaneous Vaginal Delivery Date of Procedure: 07/21/24 Pre-Procedure Diagnosis: Induction of labor, 41 weeks Post-Procedure Diagnosis: , first degree perineal laceration Type of anesthesia: Epidural Estimated Blood Loss: 350ml Time of Delivery: 19:25 Findings Description of procedure: Progressed to complete with urge to push. Epidural for pain management. of viable female infant over first degree perineal laceation. APGARS 8,9 respectively. Infant head delivered with body immediately forthcoming. Placed on maternal abdomen, strong cry. Mouth and nares suctioned for secretions. Pitocin started for active 3rd stage management. Cord doubly clamped and cut by FOB after pulsations ceased, delayed cord clamping. Placenta delivered intact via morrison, 3 vessel cord intact. Perineum inspected and revealed first degree perineal laceration. Repaired with 3.0 vicryl rapide and epidural Fundus firm and hemostasis achieved. EBL 350ml. Mom and baby stable, planning to breastfeed. Family bonding well. notified of delivery. Presentation: Vertex Amniotic Membrane Rupture Type: Artificial Amniotic Fluid Description: Clear Placental Delivery Description: Spontaneous Placenta Disposition: Other (patient taking home with her) Specimen collected: No Cord Vessel Description: 3 Vessels Cord Entanglement: None Infant A Gender: Female (1 minute): 8 (5 minute): 9 Delayed Cord Clamping: Yes Cloth Inspector emergency room clerk: No Post Vaginal Deli Medications given after delivery: IV Pitocin Episiotomy Description: None Laceration: Perineal Extension/lac and 1st degree Complication Complications: No 07/21/241958 Cosigner Signature (if applicable): CC: BISMARK Cm; No Primary Care Physician Signed Normal [facility] Mean corpuscular hemoglobin (MCH) determinationOrdered By: Azalia Cm on 07-21-2024 MCH (RBC) [Entitic mass] 30.7 pg 27.0-32.0 [facility] Mean corpuscular hemoglobin concentration (MCHC) determinationOrdered By: Azalia Cm on 07-21-2024 MCHC (RBC) [Mass/Vol] 34.7 g/dL 32-36 [facility] Mean platelet volume determi nationOrdered By: Azalia Cm on 07-21-2024 Platelet mean volume (Bld) [Entitic vol] 11.0 fL 6.2-12.0 [facility] Monocyte percentageOrdered B y: Azalia Cm on 07-21-2024 Monocytes/100 WBC (Bld) 6.6 % 0-10 [facility] Myelocyte %Ordered By: Isatu Cm on 07-21-2024 Myelocytes/100 WBC (Bld) 1 % High 0-0 [facility] Nucleated red blood cell per centageOrdered By: Azalia Cm on 07-21-2024 Nucleated RBC/100 WBC (Bld) [Ratio] 0 % 0-5 [facility] Platelet countOrdered By: Ray Cm on 07-21-2024 Platelets (Bld) [#/Vol] 218 10*3/uL 150-450 [facility] Platelet estimateOrdered By: Azalia Cm on 07-21-2024 Platelets LM Ql (Bld) ADEQUATE ADEQ [facility] RBC Auto (Bld) [#/Vol]Ordere d By: Azalia Cm on 07-21-2024 RBC (Bld) [#/Vol] 4.76 10*6/uL 4.2-5.4 [facility] Review by pathologistOrdered By: Azalia Cm on 07-21-2024 Pathologist review Alec (Unsp spec) [Interp] May foll [facility] Syphilis Antibodieson 2024 Syphilis Abs Non-Reactive Normal Nonreactive [facility] Comment on above: Performed By: #### L 509.8000 #### [facility] Laboratory [facility] [place], [address] Total cell countOrdered By: Azalia Cm on 07-21-2024 Cells counted Molgen (Bld/Tiss) [#] 100 MANUAL DIFF [facility] Type AND Screenon 07-21-2024 ABO and Rh group Nom (Bld) Blood group AB Rh(D) positive Normal [facility] Comment on above: Order Comment: Labor Performed By: #### L 100.0100, BTS #### [facility] Laboratory [address] [place], [address] White blood cell (WBC) count Ordered By: Azalia Cm on 07-21-2024 WBC (Bld) [#/Vol] 14.1 10*3/uL High 4.4-11.0 [facility] URINE OB DIP B/Oon 5 Glucose Ql (U) 100 mg/dL Neg [facility] Interpretation and review of laboratory results Normal [facility] Protein.monoclonal (U) [Mass/Vol] Negative Neg mg/dL [facility] URINE OB DIP B/Oon 5 Glucose Ql (U) Negative Neg mg/dL [facility] Interpretation and review of laboratory results Normal [facility] Protein.monoclonal (U) [Mass/Vol] Negative Neg mg/dL [facility] ROUTINE, GROUP B ST REPTOCOCCUS BY PCRon 06-21-2024 ROUTINE, GROUP B STREPTOCOCCUS BY PCR Not detected Normal [facility] Comment on above: Performed By: #### T SPN #### CC MAIN BLOOD BANK [facility] [id number] [address] [place] [address] [place] [facility] URINE OB DIP B/Oon 5 Glucose Ql (U) Negative Neg mg/dL [facility] Interpretation and review of laboratory results Normal [facility] Protein.monoclonal (U) [Mass/Vol] Negative Neg mg/dL [facility] URINE OB DIP B/Oon 5 Glucose Ql (U) Negative Neg mg/dL [facility] Interpretation and review of laboratory results Normal [facility] Protein.monoclonal (U) [Mass/Vol] trace Neg mg/dL [facility] Emergency Department Summary on 05-08-[address] [facility] Medical Records Department [address] [place] [address] Emergency Department Summary 05/08/24 MR#: [id number] Acct: [id number] Name: ALEXIA HUMMEL Rep #: [id number] : 1995 28 From: Michelle DOZIER PCP: Care Physician,No Primary Status:DEP ER Location: ED HPI History of Present Illness Chief Complaint: Wound Narrative Narrative: 28-year-old female has had 2 dermal piercings in her left arm that were done 5 years ago. They occasionally get irritated and red. This morning one of them started to become red and irritated and she presents requesting to have them removed. The external jewel part of the piercings has fallen off and only posterior remains in the skin. She has no fever chills or drainage from the area. She is currently 33 weeks . PFSH PFSH Home Medications ???Medication ???Instructions ???Recorded ???Last Taken ???Type aspirin 81 mg tablet,delayed 81 mg PO DAILY 05/08/24 Unknown Hi story release Allergy/AdvReac Type Severity Reaction Status Date / Time No Known Allergies Allergy Verified 05/08/24 16:09 Surgical History History of tonsillectomy Social History Smoking Status: Never smoker ROS ROS ED ROS Narrative Constitutional: Negative for fever, chills, malaise. GI: Negative for nausea, vomiting. Neuro: Negative for motor/sensory dysfunction. Skin: Negative for rash. EXAM Physical Exam Narrative Exam Narrative: CONST: Patient sitting in no acute distress. EYES: Normal inspection. NECK: Normal inspection. RESP: No respiratory distress, CTAB. CVS: Regular rate and rhythm, no murmur, no gallop. SKIN: 2 small metal post piercings left shoulder. No surrounding erythema, warmth, fluctuance or drainage. EXTREMITIES: Normal appearance, no pedal edema. NEURO: Alert and answering questions appropriately. PSYCH: Normal affect. Const Vital Signs: 05/08/24 16:09 05/08/24 17:26 Temperature 97.9 F 98.6 F Temperature Source Temporal Pulse Rate 110 H 81 Respiratory Rate 18 18 Blood Pressure 122/79 H 131/54 H Blood Pressure Mean 93 79 Pulse Ox 100 98 Oxygen Delivery Method Room Air Physical Exam Const Vital Signs: 05/08/24 16:09 05/08/24 17:26 Temperature 97.9 F 98.6 F Temperature Source Temporal Pulse Rate 110 H 81 Respiratory Rate 18 18 Blood Pressure 122/79 H 131/54 H Blood Pressure Mean 93 79 Pulse Ox 100 98 Oxygen Delivery Method Room Air MDM MDM MDM Narrative Medical decision making narrative: I have personally performed a face to face assessment of the patient and have reviewed the MARTI Note. I performed a substantive portion of the visit including all aspects of the following. My thomas fi ndings include: History is 28-year-old female currently 33 weeks . Has 2 dermal piercings on her left shoulder she just 1 to make sure they were not infected. is going well. No bleeding or pain. She is due in June. Exam is [well-appearing 28-year-old female. Vital signs stable afebrile. H EENT exam normal. Lungs clear. Heart regular rhythm no murmur rate about 100. Abdomen soft nontender normal bowel sounds no peritoneal signs. Gravid uterus. Moving all 4 extremities. Neurovascularly intact. Left shoulder 2 piercings small no infection. No cellulitis. No pus or discharge. No discoloration. Nontender. Clinically they look fine.] Medical Decision Making [piercing evaluation nothing needs to be done at this time patient is comfortable with not having them removed.] Other additions or changes: [None] Discharge Plan Triage Chief Complaint: Wound ED Midlevel Provider: Michelle Zuñiga ED Provider: Eze Robbins Dx/Rx/DC Orders Clinical Impression: Encounter for evaluation of wound, Body piercing, Visit for wound care, Third trimester Prescriptions: No Action aspirin 81 mg tablet,delayed release (DR/EC) 81 mg PO DAILY Primary Care Provider: Care Physician,No Primary Referrals: Care Physician,No Primary [Primary Care Provider] - Activity Restrictions/Additi onal Instructions: I recommend you see a licensed development editor to have these removed. They do not look currently infected. Print Language: Stateless Disposition Disposition: Home, Self Care Discharge Date/Time: 05/08/24 17:32 What to do if you have Problems For any increased pain, shortness of breath, bleeding, nausea or vomiting, chest pain, or any unexpected problems, contact your Primary Care Provider. Call [facility] ([phone]) or report to the closest Emergency Room. Call 911 if necessary. 05/08/24 6254 Cosigner Signature (if applicable) (more content not included)... Normal [facility] 04-30-2024 CNPN Telephone (OBGYWM) ---- ALEXIA HUMMEL ([id number]) 1995 F Date Time Provider Department 04/30/24 BLANE BONNER During your visit today, we recorded the following information about you: Zeinab Casillas RN 04/30/2024 2:12 PM Signed Breast pump request received from [address] Order to provider to sign. RADHA Santiago Lindsey, RN 04/30/2024 4:10 PM Signed Order signed and faxed. Zeinab Casillas RN Allergies As of Date: 04/30/2024 (No Known Allergies) Date Reviewed: 04/26/2024 Reviewed by: Suzy Paiz MD - Fully Assessed Reason for Visit: breast pump [Other] Prescriptions as of 04/30/2024 - aspirin, enteric coated (ECOTRIN LOW STRENGTH) 81 mg EC tablet Take 1 tablet by mouth once daily. - Fuusjbuo-Oj-Afq-Fe- FA tab Take 1 tablet by mouth once daily. Problem List As Of Date 04/30/2024 Noted Resolved Patient requested diagnostic testing [Z01.89] 12/28/2015 02/07/2016 Encounter for supervision of normal first pregn*01/09/2016 09/30/2016 History of vacuum extraction assisted delivery *12/18/2023 ASCUS with positive high risk HPV cervical [R87*12/18/2023 Supervision of high risk in second tr*12/18/2023 Vaginal bleeding affecting early [O20*12/18/2023 02/02/2024 Condyloma acuminata of vulva during i*12/18/2023 Family history of autism [Z81.8] 12/18/2023 Chlamydia infection affecting in firs*12/19/2023 Encounter Status:Closed by ZEINAB CASILLAS on 04/30/24 Normal [facility] Abner 04-27-2024 CNPN Telephone (OGFVWE) ---- ALEXIA HUMMEL ([id number]) 1995 F Date Time Provider Department 04/27/24 NURSE COMMUNITY ORGANIZATION DIRECTOR [facility] During your visit today, we recorded the following information about you: Fred Lai, RN 04/27/2024 9:54 AM Signed 3rd risk assessment form submitted 04/27/24 Fred Lai RN Allergies As of Date: 04/27/2024 (No Known Allergies) Date Reviewed: 04/26/2024 Reviewed by: Suzy Paiz MD - Fully Assessed Reason for Visit: PRAF [4193] Prescriptions as of 04/27/2024 - aspirin, enteric coated (ECOTRIN LOW STRENGTH) 81 mg EC tablet Take 1 tablet by mouth once daily. - Kccelxps-Ji-Fgz-Fe- FA tab Take 1 tablet by mouth once daily. Problem List As Of Date 04/27/2024 Noted Resolved Patient requested diagnostic testing [Z01.89] 12/28/2015 02/07/2016 Encounter for supervision of normal first pregn*01/09/2016 09/30/2016 History of vacuum extraction assisted delivery *12/18/2023 ASCUS with positive high risk HPV cervical [R87*12/18/2023 Supervision of high risk in second tr*12/18/2023 Vaginal bleeding affecting early [O20*12/18/2023 02/02/2024 Condyloma acuminata of vulva during i*12/18/2023 Family history of autism [Z81.8] 12/18/2023 Chlamydia infection affecting in firs*12/19/2023 Encounter Status:Closed by FRED LAI on 04/27/24 Normal [facility] CBC W Auto Differential pane l (Bld)on 04-26-2024 Basophils (Bld) [#/Vol] 0.09 10*3/uL Normal <0.11 [facility] Comment on above: Order Comment: Speci men Type: BLOOD SPECIMENOrdering Facility: [facility] Address: [address] [place] [address] Performed By: #### 5 7021-8 ####[facility] MILLWNCLIA [id number] [place] [address] [place] Basophils/100 WBC (Bld) 0.8 % Normal [facility] Comment on above: Order Comment: Speci men Type: BLOOD SPECIMENOrdering Facility: [facility] Address: [address] [place] [address] Performed By: #### 5 7021-8 ####[facility] BEACHA [id number] [place] [address] [place] Differential cell count method Nom (Bld) Auto Normal [facility] Comment on above: Order Comment: Speci men Type: BLOOD SPECIMENOrdering Facility: [facility] Address: [address] [place] [address] Performed By: #### 5 7021-8 ####[facility]ENTER[facility] [id number] [place] [address] [place] Eosinophils (Bld) [#/Vol] 0.61 10*3/uL High <0.46 [facility] Comment on above: Order Comment: Speci men Type: BLOOD SPECIMENOrdering Facility: [facility] Address: [address] [place] [address] Performed By: #### 5 7021-8 ####[facility] [id number] [place] [address] [place] Eosinophils/100 WBC (Bld) 5.2 % Normal [facility] Comment on above: Order Comment: Speci men Type: BLOOD SPECIMENOrdering Facility: [facility] Address: [address] [place] [address] Performed By: #### 5 7021-8 ####[facility] GIONCPALOMAA [id number] [place] [address] [place] Erythrocyte distribution width (RBC) [Ratio] 12.6 % Normal 11.5-15.0 [facility] Comment on above: Order Comment: Speci men Type: BLOOD SPECIMENOrdering Facility: [facility] Address: [address] [place] [address] Performed By: #### 5 7021-8 ####[facility]CL[facility] [id number] [place] [address] [place] Hematocrit (Bld) [Volume fraction] 37.2 % Normal 36.0-46.0 [facility] Comment on above: Order Comment: Speci men Type: BLOOD SPECIMENOrdering Facility: [facility] Address: [address] [place] [address] Performed By: #### 5 7021-8 ####[facility]CL[facility] [id number] [place] [address] [place] Hemoglobin (Bld) [Mass/Vol] 12.4 g/dL Normal 11.5-15.5 [facility] Comment on above: Order Comment: Speci men Type: BLOOD SPECIMENOrdering Facility: [facility] Address: [address] [place] [address] Performed By: #### 5 7021-8 ####[facility]CL[facility] [id number] [place] [address] [place] Immature granulocytes (Bld) [#/Vol] 0.51 10*3/uL High <0.10 [facility] Comment on above: Order Comment: Speci men Type: BLOOD SPECIMENOrdering Facility: [facility] Address: [address] [place] [address] Performed By: #### 5 7021-8 ####[facility] PHILLIPGENLIA [id number] [address] STATES [facility] Immature granulocytes/100 WBC (Bld) 4.3 % Normal [facility] Comment on above: Order Comment: Speci men Type: BLOOD SPECIMENOrdering Facility: [facility] Address: [address] [place] [address] Performed By: #### 5 7021-8 ####[facility]ENTERLIA [id number] [place] [address] [place] Lymphocytes (Bld) [#/Vol] 1.85 10*3/uL Normal 1.00-4.00 [facility] Comment on above: Order Comment: Speci men Type: BLOOD SPECIMENOrdering Facility: [facility] Address: [address] [place] [address] Performed By: #### 5 7021-8 ####[facility] [id number] [place] [address] [place] Lymphocytes/100 WBC (Bld) 15.6 % Normal [facility] Comment on above: Order Comment: Speci men Type: BLOOD SPECIMENOrdering Facility: [facility] Address: [address] [place] [address] Performed By: #### 5 7021-8 ####[facility] CENTERLIA [id number] [place] [address] [place] MCH (RBC) [Entitic mass] 29.1 pg Normal 26.0-34.0 [facility] Comment on above: Order Comment: Speci men Type: BLOOD SPECIMENOrdering Facility: [facility] Address: [address] [place] [address] Performed By: #### 5 7021-8 ####[facility] [id number] [place] [address] [place] MCHC (RBC) [Mass/Vol] 33.3 g/dL Normal 30.5-36.0 [facility] Comment on above: Order Comment: Speci men Type: BLOOD SPECIMENOrdering Facility: [facility] Address: [address] [place] [address] Performed By: #### 5 7021-8 ####[facility] PHILLIPMORTONANGYA [id number] [place] [address] [place] MCV (RBC) [Entitic vol] 87.3 fL Normal 80.0-100.0 [facility] Comment on above: Order Comment: Speci men Type: BLOOD SPECIMENOrdering Facility: [facility] Address: [address] [place] [address] Performed By: #### 5 7021-8 ####[facility]ENTERNCKATHLEEN [id number] [place] [address] [place] Monocytes (Bld) [#/Vol] 0.62 10*3/uL Normal <0.87 [facility] Comment on above: Order Comment: Speci men Type: BLOOD SPECIMENOrdering Facility: [facility] Address: [address] [place] [address] Performed By: #### 5 7021-8 ####[facility] CENTERANGYA [id number] [place] [address] [place] Monocytes/100 WBC (Bld) 5.2 % Normal [facility] Comment on above: Order Comment: Speci men Type: BLOOD SPECIMENOrdering Facility: [facility] Address: [address] [place] [address] Performed By: #### 5 7021-8 ####[facility]ENTERNCLIA [id number] [place] [address] [place] OF AGUSTIN Neutrophils (Bld) [#/Vol] 8.16 10*3/uL High 1.45-7.50 [facility] Comment on above: Order Comment: Speci men Type: BLOOD SPECIMENOrdering Facility: [facility] Address: [address] [place] [address] Performed By: #### 5 7021-8 ####[facility] [id number] [place] [address] [place] Neutrophils/100 WBC (Bld) 68.9 % Normal [facility] Comment on above: Order Comment: Speci men Type: BLOOD SPECIMENOrdering Facility: [facility] Address: [address] [place] [address] Performed By: #### 5 7021-8 ####[facility] [id number] [place] [address] [place] Nucleated RBC (Bld) [#/Vol] 10*3/uL Normal <0.01 [facility] Comment on above: Order Comment: Speci men Type: BLOOD SPECIMENOrdering Facility: [facility] Address: [address] [place] [address] Performed By: #### 5 7021-8 ####[facility] [id number] [place] [address] [place] Nucleated RBC/100 WBC (Bld) [Ratio] 0.0 /100 WBC Normal [facility] Comment on above: Order Comment: Speci men Type: BLOOD SPECIMENOrdering Facility: [facility] Address: [address] [place] [address] Performed By: #### 5 7021-8 ####[facility] [id number] [place] [address] [place] Platelet mean volume (Bld) [Entitic vol] 9.7 fL Normal 9.0-12.7 [facility] Comment on above: Order Comment: Speci men Type: BLOOD SPECIMENOrdering Facility: [facility] Address: [address] [place] [address] Performed By: #### 5 7021-8 ####[facility] PHILLIPMORTONNCLIA [id number] [place] [address] [place] Platelets (Bld) [#/Vol] 259 10*3/uL Normal 150-400 [facility] Comment on above: Order Comment: Speci men Type: BLOOD SPECIMENOrdering Facility: [facility] Address: [address] [place], [place] [address] Performed By: #### 5 7021-8 ####[facility] [id number] [place] [address] [place] RBC (Bld) [#/Vol] 4.26 10*6/uL Normal 3.90-5.20 [facility] Comment on above: Order Comment: Speci men Type: BLOOD SPECIMENOrdering Facility: [facility] Address: [address] [place] [address] Performed By: #### 5 7021-8 ####[facility] [id number] [place] [address] [place] WBC (Bld) [#/Vol] 11.84 10*3/uL High 3.70-11.00 [facility] Comment on above: Order Comment: Speci men Type: BLOOD SPECIMENOrdering Facility: [facility] Address: [address] [place], [place] [address] Performed By: #### 5 7021-8 ####[facility] [id number] [place] [address] [place] GESTATIONAL GLUCOSE SCREEN, 1-HOUR, 50 GRAM, NON-FASTINGon 04-26-2024 Glucose [Mass/Vol] 129 mg/dL Normal 74-134 [facility] Comment on above: Order Comment: Speci men Type: BLOOD SPECIMEN [facility] Address: [address] [place] [address] Result Comment: [facility] Congress of Obstetricians and Gynecologists (Marlon/Manuela) guidelines state a gestational diabetes mellitus positive screen is made, in women not previously diagnosed with overt diabetes, when the 1 hr plasma glucose level is equal to or above 140 mg/dL. The [facility] Brake Adjuster and [facility] [place] recommends a 135 mg/dL cutoff. Performed By: #### T SPN #### [facility] CLIA [id number] [address] [place] [address] [place] Reagin and Treponema pallidu m IgG and IgM [Interp]on 04-26-2024 T. pallidum IgG+IgM IA Ql (S) Non-Reactive Normal Nonreactive [facility] Comment on above: Order Comment: Stella ace Type: BLOOD SPECIMEN [facility] Address: [address] [place] [address] Performed By: #### T SPN #### [facility] CLIA [id number] [address] [place] [address] [place] Reagin+T pallidum IgG+IgM Se rPl-Impon 04-26-2024 Reagin and Treponema pallidum IgG and IgM [Interp] Cannot exclude recent Treponemal infection if specimen collected within 7-10 days after appearance of suspect lesions or 2-3 weeks after an exposure. Clinical correlation is required. Normal [facility] Comment on above: Order Comment: Stella ace Type: BLOOD SPECIMEN [facility] Address: [address] [place] [address] Performed By: #### T SPN #### [facility] CLIA [id number] [address] [place] [address] [place] Abner 03-02-2024 KAREN Telephone (OGFVWE) ---- ALEXIA HUMMEL ([id number]) 1995 F Date Time Provider Department 03/02/24 NURSE COMMUNITY ORGANIZATION DIRECTOR [facility] During your visit today, we recorded the following information about you: Fred Lai RN 03/02/2024 9:22 AM Signed 2nd PRAF submitted 03/02/24 Fred Lai RN Allergies As of Date: 03/02/2024 (No Known Allergies) Date Reviewed: 03/01/2024 Reviewed by: Blane Bonner APRN.RHEOSTAT ASSEMBLER - Fully Assessed Reason for Visit: PRAF [4193] Prescriptions as of 03/02/2024 - aspirin, enteric coated (ECOTRIN LOW STRENGTH) 81 mg EC tablet Take 1 tablet by mouth once daily. - Rekzjqhs-Zx-Wwa-Fe- FA tab Take 1 tablet by mouth once daily. Problem List As Of Date 03/02/2024 Noted Resolved Patient requested diagnostic testing [Z01.89] 12/28/2015 02/07/2016 Encounter for supervision of normal first pregn*01/09/2016 09/30/2016 History of vacuum extraction assisted delivery *12/18/2023 ASCUS with positive high risk HPV cervical [R87*12/18/2023 Supervision of high risk in second tr*12/18/2023 Vaginal bleeding affecting early [O20*12/18/2023 02/02/2024 Condyloma acuminata of vulva during i*12/18/2023 Family history of autism [Z81.8] 12/18/2023 Chlamydia infection affecting in firs*12/19/2023 Encounter Status:Closed by FRED LAI on 03/02/24 Normal [facility] Examination level ultrasound on 03-01-2024 Indication Standard anatomic survey Impression REMOTE READ The patient is referred for a standard anatomic survey. - Single, live, intrauterine . - biometry is consistent with the established gestational age. - No malformations were visualized on a complete standard anatomic survey. - The amniotic fluid volume is normal amount. - The placenta is anterior, fundal. - The Transabdominal cervical length measures 40.9 mm with no evidence of funneling or other dynamic changes. - Not all structural malformations can be detected by ultrasound examination. Recommendations Additional follow-up as clinically indicated. Maternal Assessment Height 160 cm Height (ft) 5 ft Height (in) 3 in Physical Exam Initial weight (lb) 135 lb Initial BMI 23.92 kg/m Maternal assessment other: 2 Para 1 Method Transabdominal ultrasound examination. View: Adequate visualization Morales . Number of fetuses: 1 Dating LMP on: 10/08/2023 GA by LMP 20 w + 5 d SAMREEN by LMP: 07/14/2024 GA by prior assessment 20 w + 5 d SAMREEN by prior assessment: 07/14/2024 Ultrasound examination on: 03/01/2024 GA by U/S based upon: AC, BPD, Femur, HC GA by U/S 21 w + 0 d SAMREEN by U/S: 07/12/2024 Assigned: based on stated SAMREEN, selected on 03/01/2024 Assigned GA 20 w + 5 d Assigned SAMREEN: 07/14/2024 General Evaluation Cardiac activity present. FHR 150 bpm. movements: present. Presentation: transverse head left Placenta: Placental site: anterior, fundal Umbilical cord: Cord vessels: 3 vessel cord Amniotic fluid: Amount of AF: normal amount. MVP 6.1 cm Growth Overview Exam date GA BPD (mm) HC (mm) AC (mm) FL (mm) HL (mm) EFW (g) 03/01/2024 20w 5d 48.5 47% 190.2 68% 160.3 58% 33.4 54% 31.5 40% 384 54% Biometry Standard BPD 48.5 mm 20w 5d 47% Hadlock OFD 69.9 mm 21w 5d 98% Nicolaides HC 190.2 mm 21w 2d 68% Ella Cerebellum tr 22.1 mm 20w 5d 67% Hill Nuchal fold 4.0 mm AC 160.3 mm 21w 1d 58% Hadlock Femur 33.4 mm 20w 5d 54% Ella Humerus 31.5 mm 20w 4d 40% Ella EFW 384 g 20w 5d 54% Hadlock EFW (lb) 0 lb EFW (oz) 14 oz EFW by: Hadlock (HC-AC-FL) Extended Bus Driver Supervisor 6.9 mm CM 6.5 mm 86% Nicolaides Extremities / Bony Struc FL / HC 0.18 15% Hadlock Other Structures FHR 150 bpm Anatomy Cranium: normal Lateral ventricles: normal Choroid plexus: normal Midline falx: normal Cavum septi pellucidi: normal Cerebellum: normal Cisterna magna: normal Head / Neck Vermis: Normal but not required for a standard anatomy exam Neck: Normal but not required for a standard anatomy exam Nuchal fold: Normal but not required for a standard anatomy exam Lips: normal Profile: Normal but not required for a standard anatomy exam Nose: Normal but not required for a standard anatomy exam Face Maxilla: Normal but not required for a standard anatomy exam Mandible: Normal but not required for a standard anatomy exam Orbits: Normal but not required for a standard anatomy exam Lens: Normal but not required for a standard anatomy exam 4-chamber view: normal RVOT view: normal LVOT view: normal 3-vessel view: normal 1-uvdkiw-jwnonqt view: normal Heart / Thorax Situs: situs solitus (normal) Aortic arch view: Normal but not required for a standard anatomy exam SVC: Normal but not required for a standard anatomy exam IVC: Normal but not required for a standard anatomy exam Cardiac axis: normal Rt lung: Normal but not required for a standard anatomy exam Lt lung: Normal but not required for a standard anatomy exam Diaphragm: Normal but not required for a standard anatomy exam Cord insertion: normal Stomach: normal Kidneys: normal Bladder: normal Genitals: normal Abdomen Abdom. wall: normal Cervical spine: normal Thoracic spine: normal Lumbar spine: normal Sacral spine: normal Arms: normal Legs: normal Rt upper arm: normal Rt forearm: normal Rt hand: normal Rt fingers: normal Lt upper arm: normal Lt forearm: normal Lt hand: normal Lt fingers: normal Rt upper leg: normal Rt lower leg: normal Rt foot: normal Lt upper leg: normal Lt lower leg: normal Lt foot: normal sex: female Wants to know sex: yes Maternal Structures Uterus / Cervix Uterus: Visualized Cervix: Visualized Approach: Transabdominal Cervical length 40.9 mm Other: Patient declined transvaginal ultrasound for cervical length. Ovaries / Tubes / Adnexa Rt ovary: Not visualized Lt ovary: Not visualized Performed By: Zeinab Maciel RDMS, RVT Read By: Jodi Barnhart M.D. MATERNAL MEDICINE [facility] Radiology Study observation (narrative) [facility] Urinalysis complete W Reflex Culture panel (U)on 02-06-2024 Appearance (U) Clear Clear [facility] Bilirubin (U) [Mass/Vol] Negative NEGATIVE [facility] Color (U) Light-Yellow Light-Yellow, Yellow, Dark-Yellow [facility] Glucose Auto test strip (U) [Mass/Vol] Normal Normal mg/dL [facility] Interpretation and review of laboratory results Normal [facility] Ketones (U) [Mass/Vol] Negative NEGATIVE mg/d L [facility] Leukocyte esterase Auto test strip Ql (U) Negative NEGATIVE [facility] Nitrite Auto test strip Ql (U) Negative NEGATIVE [facility] pH (U) 6.5 [pH] 5.0, 5.5, 6.0, 6.5, 7.0, 7.5, 8.0 [facility] Protein (U) [Mass/Vol] Negative NEGAT EMERALD, 10 (TRACE), 20 (TRACE) mg/dL [facility] RBC (U) [#/Vol] Negative NEGATIVE [facility] Specific gravity (U) [Rel density] 1.023 1.005 - 1.035 [facility] Urobilinogen (U) [Mass/Vol] Normal Normal mg/dL [facility] Appearance (U) Clear Normal Clear [facility] Comment on above: Performed By: #### 5 8077-9 #### ANURADHA MCINTYRE ([id number]) [facility] ([facility]) [address] [place], [place] [address] Bilirubin (U) [Mass/Vol] Negative Normal NEGATIVE [facility] Comment on above: Performed By: #### 5 8077-9 #### ANURADHA MCINTYRE ([id number]) [facility] ([facility]) [address] [place] [address] Color (U) Light-Yellow Normal Light-Yellow, Yellow, Dark-Yellow [facility] Comment on above: Performed By: #### 5 8077-9 #### ANURADHA MCINTYRE ([id number]) [facility] ([facility]) [address] [place] [address] Glucose Auto test strip (U) [Mass/Vol] Normal Normal Normal [facility] Comment on above: Performed By: #### 5 8077-9 #### ANURADHA MCINTYRE ([id number]) [facility] ([facility]) [address] [place] [address] Ketones (U) [Mass/Vol] Negative Normal NEGATIVE [facility] Comment on above: Performed By: #### 5 8077-9 #### ANURADHA MCINTYRE ([id number]) [facility] ([facility]) [address] [place] [address] Leukocyte esterase Auto test strip Ql (U) Negative Normal NEGATIVE [facility] Comment on above: Performed By: #### 5 8077-9 #### ANURADHA MCINTYRE ([id number]) [facility] ([facility]) [address] [place] [address] Nitrite Auto test strip Ql (U) Negative Normal NEGATIVE [facility] Comment on above: Performed By: #### 5 8077-9 #### ANURADHA MCINTYRE ([id number]) [facility] ([facility]) [address] [place] [address] pH (U) 6.5 [pH] Normal 5.0, 5.5, 6.0, 6.5, 7.0, 7.5, 8.0 [facility] Comment on above: Performed By: #### 5 8077-9 #### ANURADHA MCINTYRE ([id number]) [facility] ([facility]) [address] [place] [address] Protein (U) [Mass/Vol] Negative Normal NEGAT EMERALD, 10 (TRACE), 20 (TRACE) [facility] Comment on above: Performed By: #### 5 8077-9 #### ANURADHA MCINTYRE ([id number]) [facility] ([facility]) [address] [place] [address] RBC (U) [#/Vol] Negative Normal NEGATIVE [facility] Comment on above: Performed By: #### 5 8077-9 #### ANURADHA MCINTYRE ([id number]) [facility] ([facility]) [address] [place] [address] Specific gravity (U) [Rel density] 1.023 Normal 1.005-1.035 [facility] Comment on above: Performed By: #### 5 8077-9 #### ANURADHA MCINTYRE ([id number]) [facility] ([facility]) [address] [place] [address] Urobilinogen (U) [Mass/Vol] Normal Normal Normal [facility] Comment on above: Performed By: #### 5 8077-9 #### ANURADHA MCINTYRE ([id number]) [facility] ([facility]) [address] [place] [address] C. trachomatis+N. gonorrhoea e DNA SHELTON+probe Ql (Unsp spec)on 02-02-2024 C. trachomatis rRNA SHELTON+probe Ql (Unsp spec) Not detected Normal Not detected [facility] Comment on above: Order Comment: Speci men Type: BLOOD SPECIMEN [facility] Address: [address] [place] [address] Performed By: #### T SPN #### [facility] [id number] [address] [place] [address] [place] N. gonorrhoeae rRNA SHELTON+probe Ql (Unsp spec) Not detected Normal Not detected [facility] Comment on above: Order Comment: Speci men Type: BLOOD SPECIMEN [facility] Address: [address] [place] [address] Performed By: #### T SPN #### [facility]LO[facility] CLIA [id number] [address] [place] [address] [place] nuchal translucency me asured by USon 01-05-2024 Indication First trimester anatomic survey Impression REMOTE READ The patient is referred for a first trimester anatomy scan including nuchal translucency measurement as clinically indicated. - Single, live, intrauterine . - Mulliken rump length measurement is consistent with the established gestational age. - A qualitative screen of the nuchal translucency and other anatomic structures was unremarkable on incomplete first trimester anatomic assessment. - Not all structural malformations can be detected by ultrasound examination. Maternal Structures: Right Ovary: Size 34 mm x 23 mm x 27 mm Recommendations Return for anatomy ultrasound Maternal Assessment Height 160 cm Height (ft) 5 ft Height (in) 3 in Physical Exam Initial weight (lb) 135 lb Initial BMI 23.92 kg/m Maternal assessment other: 2 Para 1 Method Transabdominal ultrasound examination Morales . Number of fetuses: 1 Dating LMP on: 10/08/2023 GA by LMP 12 w + 5 d SAMREEN by LMP: 07/14/2024 GA by prior assessment 12 w + 5 d SAMREEN by prior assessment: 07/14/2024 Ultrasound examination on: 01/05/2024 GA by U/S based upon: CRL GA by U/S 13 w + 1 d SAMREEN by U/S: 07/11/2024 Assigned: based on stated SAMREEN, selected on 01/05/2024 Assigned GA 12 w + 5 d Assigned SAMREEN: 07/14/2024 General Evaluation Cardiac activity present Placenta: anterior Cord vessels: 3 vessel cord Amniotic fluid: normal amount Biometry Standard FHR 169 bpm CRL 68.0 mm 13w 1d 68% Hadlock First Trimester Anatomy Calvarium: normal Falx cerebri: normal Choroid plexus: normal Profile: normal Nasal bone: normal Retronasal triangle: normal Maxilla: normal Mandible: normal Nuchal translucency: Unremarkable Situs: normal Cardiac position: normal Cardiac axis: normal 4-chamber view: suboptimal 4-chamber view with color: normal 2-ktqztf-xuxuqxv view: normal Abdominal cord insertion: normal Stomach: normal Kidneys: normal Bladder: normal Color doppler of perivesical umbilical arteries: normal Vertebral alignment: normal Arms: normal Hands: normal Legs: normal Feet: normal Maternal Structures Uterus / Cervix Uterus: Visualized Uterus length 149 mm Uterus width 111 mm Uterus height 70 mm Uterus Vol 610.9 cm Ovaries / Tubes / Adnexa Rt ovary: Visualized Rt ovary D1 34 mm Rt ovary D2 23 mm Rt ovary D3 27 mm Rt ovary Vol 10.9 cm Lt ovary: Not visualized Performed By: Zeinab Maciel RDMS, RVT Read By: Jodi Barnhart M.D. MATERNAL MEDICINE [facility] Radiology Study observation (narrative) [facility] gue[facility] Abner 12-19-2023 JUANITON Telephone (OGFVWE) ---- SHAHEEDERIKL Sami ([id number]) 1995 F Date Time Provider Department 12/19/23 NURSE COMMUNITY ORGANIZATION [facility] During your visit today, we recorded the following information about you: Fred Lai, RN 12/19/2023 8:47 AM Signed 1st risk assessment form submitted 12/19/23 Fred Lai RN Allergies As of Date: 12/19/2023 (No Known Allergies) Date Reviewed: 12/18/2023 Reviewed by: Blane Bonner APRN.RHEOSTAT ASSEMBLER - Fully Assessed Reason for Visit: PRAF [4193] Prescriptions as of 12/19/2023 - azithromycin (ZITHROMAX) 500 mg tablet Take 2 tablets by mouth one time only for 1 dose. - doxycycline monohydrate (MONODOX) 100 mg capsule Take 1 capsule by mouth two times a day for 7 days. - aspirin, enteric coated (ECOTRIN LOW STRENGTH) 81 mg EC tablet Take 1 tablet by mouth once daily. - Arminzeg-Hk-Ugd-Fe- FA tab Take 1 tablet by mouth once daily. Problem List As Of Date 12/19/2023 Noted Resolved Patient requested diagnostic testing [Z01.89] 12/28/2015 02/07/2016 Encounter for supervision of normal first pregn*01/09/2016 09/30/2016 History of vacuum extraction assisted delivery *12/18/2023 ASCUS with positive high risk HPV cervical [R87*12/18/2023 Encounter for supervision of high risk pregnanc*12/18/2023 Vaginal bleeding affecting early [O20*12/18/2023 Condyloma acuminata of vulva during i*12/18/2023 Family history of autism [Z81.8] 12/18/2023 Chlamydia infection affecting in firs*12/19/2023 Encounter Status:Closed by FRED LAI on 12/19/23 [facility] ALEXIA HUMMEL ([id number]) 1995 F Date Time Provider Department 12/19/23 BLANE BONNER During your visit today, we recorded the following information about you: Blane Bonner APRN.CNP 12/19/2023 7:14 AM Signed Please notify patient: Culture positive for chlamydia. To treat with Azithromycin. Partner should be treated - can send EPT. No intercourse during treatment or for 7 days after. Please notify health department. Needs MARITZA in 4 weeks. KELLY Sandoval Jennifer, RN 12/19/2023 8:41 AM Signed Expedited Partner Therapy (EPT) EPT is being prescribed today to the patient?s partner(s) as the following conditions have been met: The intended recipient is a sexual partner of Alexia Hummel. Alexia Hummel has been diagnosed with chlamydia. Alexia Hummel reports that sexual partner is unable or unlikely to be evaluated or treated by a health professional. EPT is being prescribed for no more than two sexual partners. Alexia Hummel's sexual partner(s) have been contacted: No The following has been relayed to Alexia Hummel: Information about the EPT medication has been provided to Alexia Hummel to share with their sexual partner(s). Recommendation that sexual partner(s) seek treatment and testing from a healthcare professional. Suzy iVera RN 12/19/2023 8:41 AM Signed Patient notified. Voiced understanding of instructions. Faxed notification to Health Department. Patient does want her partner to be treated. RX pending. Patient aware that both scripts will be in her name, but she is to take the Zithromax. RADHA Paez Emily, APRN.CNP 12/19/2023 8:44 AM Signed Please ensure partner has no allergies to Doxycyline. Rx sent. Blane Bonner APRN.RHEOSTAT ASSEMBLER Suzy Viera RN 12/19/2023 9:21 AM Signed Patient did state that partner has NKDA. Suzy Viera RN Allergies As of Date: 12/19/2023 (No Known Allergies) Date Reviewed: 12/18/2023 Reviewed by: Blane Bonner APRN.RHEOSTAT ASSEMBLER - Fully Assessed Reason for Visit: Results [95] Primary Visit Diagnosis:Chlamydia infection affecting in first trimester [O98.811, A74.9] Other Visit Diagnosis:Exposure to chlamydia [Z20.2] Order(s):azithromyc in (ZITHROMAX) 500 mg tabletTake 2 tablets by mouth one time only for 1 dose.Disp: 2 tabletRfl: 0 EXPEDITED PARTNER TREATMENT [[id number]] Order #: [id number]: 1 doxycycline monohydrate (MONODOX) 100 mg capsuleTake 1 capsule by mouth two times a day for 7 days.Disp: 14 capsuleRfl: 0 Prescriptions as of 12/19/2023 - azithromycin (ZITHROMAX) 500 mg tablet Take 2 tablets by mouth one time only for 1 dose. - doxycycline monohydrate (MONODOX) 100 mg capsule Take 1 capsule by mouth two times a day for 7 days. - aspirin, enteric coated (ECOTRIN LOW STRENGTH) 81 mg EC tablet Take 1 tablet by mouth once daily. - Mbxbuaov-Kc-Bmu-Fe- FA tab Take 1 tablet by mouth once daily. Problem List As Of Date 12/19/2023 Noted Resolved Patient requested diagnostic testing [Z01.89] 12/28/2015 02/07/2016 Encounter for supervision of normal first pregn*01/09/2016 09/30/2016 History of vacuum extraction assisted delivery *12/18/2023 ASCUS with positive high risk HPV cervical [R87*12/18/2023 Encounter for supervision of high risk pregnanc*12/18/2023 Vaginal bleeding affecting early [O20*12/18/2023 Condyloma acuminata of vulva during i*12/18/2023 Family history of autism [Z81.8] 12/18/2023 Chlamydia infection affecting in firs*12/19/2023 Prescriptions ordered this encounter Disp Refills Start End AZITHROMYCIN 500 MG TABLET 2 ta* 0 12/19/2023 12/19/2023 Route: ORAL Sig: Take 2 tablets by mouth one time only for 1 dose. DOXYCYCLINE MONOHYDRATE 100 MG CAPSU* 14 c* 0 12/19/2023 12/26/2023 Cmt: Expedited Partner Treatment Route: ORAL Sig: Take 1 capsule by mouth two times a day for 7 days. Encounter Status:Closed by BLANE BONNER on 12/19/23 Normal [facility] Bacteria Ur Culton Bacteria identified Cx Nom (U) ORGANISM ID: 1 <10,000 CFU/ml Normal urogenital neema Normal [facility] Comment on above: Performed By: #### T SPN #### [facility] MAIN BLOOD BANK CLIA [id number] [address] [place] [address] [place] C. trachomatis+N. gonorrhoea e DNA SHELTON+probe Ql (Unsp spec)on 12-18-2023 C. trachomatis rRNA SHELTON+probe Ql (Unsp spec) Positive Abnormal Negative for Chlamydia trachomatis by amplificaton [facility] Comment on above: Order Comment: Speci men Type: SWABOrdering Facility[facility] Address: [address] [place] [address] Performed By: #### 3 6902-5 ####[facility] LABIA [id number] [place] [address] [place] N. gonorrhoeae rRNA SHE[place]TON+probe Ql (Unsp spec) Negative Normal Negative for Neisseria gonorrhoeae by amplification [facility] Comment on above: Order Comment: Speci men Type: SWABOrdering Facility: [facility] Address: [address] [place] [address] Performed By: #### 3 6902-5 ####[facility] LABIA [id number] [place] [address] [place] CBC panel Auto (Bld)on 12-17 Erythrocyte distribution width (RBC) [Ratio] 13.1 % 11.5 - 15.0 % [facility] Hematocrit (Bld) [Volume fraction] 43.9 % 36.0 - 46.0 % [facility] Hemoglobin (Bld) [Mass/Vol] 14.8 g/dL 11.5 - 15.5 g/dL [facility] Interpretation and review of laboratory results Normal [facility] MCH (RBC) [Entitic mass] 28.7 pg 26.0 - 34.0 pg [facility] MCHC (RBC) [Mass/Vol] 33.7 g/dL 30.5 - 36.0 g/ dL [facility] MCV (RBC) [Entitic vol] 85.1 fL 80.0 - 100.0 fL [facility] Nucleated RBC (Bld) [#/Vol] NINF [facility] Platelet mean volume (Bld) [Entitic vol] 9.6 fL 9.0 - 12.7 fL [facility] Platelets (Bld) [#/Vol] 319 10*3/uL [facility] RBC (Bld) [#/Vol] 5.16 10*6/uL 3.90 - 5.20 m/uL [facility] WBC (Bld) [#/Vol] 10.46 10*3/uL [facility] Erythrocyte distribution width (RBC) [Ratio] 13.1 % Normal 11.5-15.0 [facility] Comment on above: Order Comment: Speci men Type: BLOOD SPECIMEN [facility] Address: [address] [place] [address] Performed By: #### T SPN #### [facility] BLOOD BANK [facility] [id number] [address] [place] [address] [place] Hematocrit (Bld) [Volume fraction] 43.9 % Normal 36.0-46.0 [facility] Comment on above: Order Comment: Speci men Type: BLOOD SPECIMEN [facility] Address: [address] [place] [address] Performed By: #### T SPN #### [facility] BLOOD BANK [facility] [id number] [address] [place] [address] [place] Hemoglobin (Bld) [Mass/Vol] 14.8 g/dL Normal 11.5-15.5 [facility] Comment on above: Order Comment: Speci men Type: BLOOD SPECIMEN [facility] Address: [address] [place] [address] Performed By: #### T SPN #### [facility] MA[facility] BLOOD BANK CLIA [id number] [address] [place] [address] [place] MCH (RBC) [Entitic mass] 28.7 pg Normal 26.0-34.0 [facility] Comment on above: Order Comment: Speci men Type: BLOOD SPECIMEN [facility] Address: [address] [place] [address] Performed By: #### T SPN #### [facility] MA[facility] BLOOD BANK CLIA [id number] [address] [place] [address] [place] MCHC (RBC) [Mass/Vol] 33.7 g/dL Normal 30.5-36.0 [facility] Comment on above: Order Comment: Speci men Type: BLOOD SPECIMEN [facility] Address: [address] [place] [address] Performed By: #### T SPN #### [facility] MAIN BLOOD BANK CLIA [id number] [address] [place] [address] [place] MCV (RBC) [Entitic vol] 85.1 fL Normal 80.0-100.0 C [facility] Comment on above: Order Comment: Speci men Type: BLOOD SPECIMEN [facility] Address: [address] [place] [address] Performed By: #### T SPN #### CC MAIN BLOOD BANK CLIA [id number] [address] [place] [address] [place] Nucleated RBC (Bld) [#/Vol] 10*3/uL Normal <0.01 [facility] Comment on above: Order Comment: Speci men Type: BLOOD SPECIMEN [facility] Address: [address] [place] [address] Performed By: #### T SPN #### [facility] MAIN BLOOD BANK CLIA [id number] [address] [place] [address] [place] Platelet mean volume (Bld) [Entitic vol] 9.6 fL Normal 9.0-12.7 [facility] Comment on above: Order Comment: Speci men Type: BLOOD SPECIMEN [facility] Address: [address] [place] [address] Performed By: #### T SPN #### [facility] MAIN BLOOD BANK CLIA [id number] [address] [place] [address] [place] Platelets (Bld) [#/Vol] 319 10*3/uL Normal 150-400 [facility] Comment on above: Order Comment: Speci men Type: BLOOD SPECIMEN [facility] Address: [address] [place] [address] Performed By: #### T SPN #### CC MAIN BLOOD BANK CLIA [id number] [address] [place] [address] [place] RBC (Bld) [#/Vol] 5.16 10*6/uL Normal 3.90-5.20 [facility] Comment on above: Order Comment: Speci men Type: BLOOD SPECIMEN [facility] Address: [address] [place] [address] Performed By: #### T SPN #### [facility] MAIN BLOOD BANK CLIA [id number] [address] [place] [address] [place] WBC (Bld) [#/Vol] 10.46 10*3/uL Normal 3.70-11.00 [facility] Comment on above: Order Comment: Speci men Type: BLOOD SPECIMEN [facility] Address: [address] [place] [address] Performed By: #### T SPN #### [facility] MAIN BLOOD BANK CLIA [id number] [address] [place] [address] [place] HBV surface Ag Ser Qlon 10-2 4-2024 HBV surface Ag Ql (S) Negative Normal Negative [facility] Comment on above: Order Comment: Speci men Type: BLOOD SPECIMENOrdering Facility: [facility] Address: [address] [place] [address] Performed By: #### 5 195-3, 77753-9, 53129-9 ####[facility] LABCLIA [id number] [place] [address] [place] HCV Ab Ser Qlon 12-18-2023 HCV Ab Ql (S) Negative Normal Negative [facility] Comment on above: Order Comment: Speci men Type: BLOOD SPECIMENOrdering Facility: [facility] Address: [address] [place] [address] Result Comment: The result suggests no evidence of active infection with Hepatitis C virus. Should recent infection be suspected, repeat testing may be considered 4-6 weeks after this draw. Performed By: #### 1 6128-1 ####[facility] LABCLIA [id number] [place] [address] [place] HIV 1+2 Ab IA Qlon HIV 1 and 2 Ab IA.rapid Nom (S/P/Bld) Normal [facility] Comment on above: Order Comment: Speci men Type: BLOOD SPECIMENOrdering Facility: [facility] Address: [address] [place] [address] Result Comment: Test not indicated. Performed By: #### 5 195-3, 79671-4, 21592-5 ####[facility] LABCLIA [id number] [place] [address] [place] HIV 1+2 Ab+HIV1 p24 Ag IA Ql Non-Reactive Normal Nonreactive [facility] Comment on above: Order Comment: Speci men Type: BLOOD SPECIMENOrdering Facility: [facility] Address: [address] [place] [address] Performed By: #### 5 195-3, 99584-1, 12531-6 ####[facility] LABCLIA [id number] [place] [address] [place] HIV immunoassay testing algorithm interpretation (S/P/Bld) [Interp] Normal [facility] Comment on above: Order Comment: Speci men Type: BLOOD SPECIMENOrdering Facility: [facility] Address: [address] [place] [address] Result Comment: No e vidence of HIV-1 or HIV-2 infection. Should recent infection be suspected, repeat testing may be considered 2-3 weeks after this draw. [place] Rev. Code 3701.243(E): This information has been disclosed to you from confidential records protected from disclosure by state law. ???You shall make no further disclosure of this information without the specific, written, and informed release of the individual to whom it pertains or as otherwise permitted by state law. A general authorization for the release of medical or other information is not sufficient for the purpose of the release of HIV test results or diagnoses. Performed By: #### 5 195-3, 15770-7, 85869-6 ####[facility] LABCLIA [id number] [place] [address] [place] HbA1c (Bld)on 12-18-2023 Average glucose Estimated from glycated hemoglobin (Bld) [Mass/Vol] 77 mg/dL Normal [facility] Comment on above: Order Comment: Speci men Type: BLOOD SPECIMEN [facility] Address: [address] [place] [address] Result Comment: eAG: (Estimated average glucose) is a calculated value from HgbA1c and is volunteer patient representative of the average blood glucose level in the last 2-3 month period. Performed By: #### T SPN #### [facility] CLIA [id number] [address] [place] [address] [place] HbA1c (Bld) [Mass fraction] 4.3 % Normal 4.3-5.6 [facility] Comment on above: Order Comment: Speci men Type: BLOOD SPECIMEN [facility] Address: [address] [place] [address] Result Comment: Amer [place] Diabetes Association guidelines indicate that patients with HgbA1c in the range 5.7-6.4% are at increased risk for development of diabetes, and intervention by lifestyle modification may be beneficial. HgbA1c greater or equal to 6.5% is considered diagnostic of diabetes. Performed By: #### T SPN #### CC MAIN BLOOD BANK CLIA [id number] [address] [place] [address] OF [place] [id number] PLUSon 12-18-2023 Cell-free DNA./Cell-free DNA.total Dosage of chromosome-specific cfDNA (cfDNA) [Molar fraction] 22% Normal [facility] Comment on above: Order Comment: Speci men Type: BLOOD SPECIMEN [facility] Address: [address] [place] [address] Performed By: #### T SPN #### CC MAIN BLOOD BANK CLIA [id number] [address] [place] [address] [place] Chr 13+18+21+X+Y aneuploidy Dosage of chromosome-specific cfDNA Ql (cfDNA) Negative Normal [facility] Comment on above: Order Comment: Speci men Type: BLOOD SPECIMEN [facility] Address: [address] [place] [address] Performed By: #### T SPN #### CC MAIN BLOOD BANK CLIA [id number] [address] [place] [address] OF [place] Chr 21 trisomy Dosage of chromosome-specific cfDNA Ql (cfDNA) Negative Normal [facility] Comment on above: Order Comment: Speci men Type: BLOOD SPECIMEN [facility] Address: [address] [place] [address] Performed By: #### T SPN #### CC MAIN BLOOD BANK CLIA [id number] [address] [place] [address] [place] Chr X and Y aneuploidy risk Sequencing Ql (cfDNA) [Interp] Not detected Normal [facility] Comment on above: Order Comment: Speci men Type: BLOOD SPECIMEN [facility] Address: [address] [place] [address] Result Comment: Not Detected Not Detected Performed By: #### T SPN #### CC MAIN BLOOD BANK CLIA [id number] [address] [place] [address] [place] Citation Alec (Reference lab test) Comment Normal [facility] Comment on above: Order Comment: Speci men Type: BLOOD SPECIMEN [facility] Address: [address] [place] [address] Result Comment: 1. P [place] HOLLOWAY et al. Lynette Med. 2012;14(3):296-305. 2. Josh WINTERS, et al. Prenat Diag. 2013;33(6):591-597. 3. Kobi C, et al. Clin Chem. 2015 Apr;61(4):608-616. 4. David HOLLOWAY, et al. Lynette Med. 2011;13(11):913-920. 5. ACOG/SMFM Practice Bulletin No. 226, Nov 2019. Performed By: #### T SPN #### CC MAIN BLOOD BANK CLIA [id number] [address] [place] [address] [place] Gestational age Estimated from conception date Morales Normal [facility] Comment on above: Order Comment: Speci men Type: BLOOD SPECIMEN [facility] Address: [address] [place] [address] Performed By: #### T SPN #### CC MAIN BLOOD BANK CLIA [id number] [address] [place] [address] [place] GESTATIONALAGE AGE > OR = 9W Yes Normal [facility] Comment on above: Order Comment: Speci men Type: BLOOD SPECIMEN [facility] Address: [address] [place] [address] Performed By: #### T SPN #### CC MAIN BLOOD BANK CLIA [id number] [address] [place] [address] [place] Laboratory comment Alec (Report) Comment Normal [facility] Comment on above: Order Comment: Speci men Type: BLOOD SPECIMEN [facility] Address: [address] [place] [address] Result Comment: The MaterniT(R) 21 PLUS laboratory-developed test (LDT) analyzes circulating cell-free DNA from a maternal blood sample. This test is used for screening purposes and not diagnostic. Clinical correlation is recommended. Validation data on twin pregnancies is limited and the ability of this test to detect aneuploidy in higher multiple gestations has not yet been validated. Performed By: #### T SPN #### CC MAIN BLOOD BANK CLIA [id number] [address] [place] [address] OF [facility] music education director name Nom (Provider) Comment Normal [facility] Comment on above: Order Comment: Stella ace Type: BLOOD SPECIMEN [facility] Address: [address] [place] [address] Result Comment: This specimen showed an expected representation of chromosome 21, 18 and 13 material. Clinical correlation is suggested. Comment Feng Ervin MD, PhD, Director, [employer] Performed By: #### T SPN #### CC MAIN BLOOD BANK CLIA [id number] [address] [place] [address] LIMITATIONS OF THE TEST Comment Normal [facility] Comment on above: Order Comment: Stella ace Type: BLOOD SPECIMEN [facility] Address: [address] [place] [address] Result Comment: Blanca gallardo the results of these tests are highly reliable, discordant results, including inaccurate sex prediction, may occur due to placental, maternal, or mosaicism or neoplasm; vanishing twin; prior maternal organ transplant; or other causes. These tests are screening tests and not diagnostic; they do not replace the accuracy and precision of diagnosis with CVS or amniocentesis. A patient with a positive test result should be referred for genetic counseling and offered invasive diagnosis for confirmation of test results.[5] The results of this testing, including the benefits and limitations, should be discussed with a qualified healthcare provider. management decisions, including termination of the , should not be based on the results of these tests alone. The healthcare provider is responsible for the use of this information in the management of their patient. Sex chromosomal aneuploidies are not reportable for known multiple gestations. A negative result does not ensure an unaffected nor does it exclude the possibility of other chromosomal abnormalities or defects which are not a part of these tests. An uninformative result may be reported, the causes of which may include, but are not limited to, insufficient sequencing coverage, noise or artifacts in the region, amplification or sequencing bias, or insufficient fraction. These tests are not intended to identify pregnancies at risk for neural tube defects or ventral wall defects. Testing for whole chromosome abnormalities (including sex chromosomes) and for subchromosomal abnormalities could lead to the potential discovery of both and maternal genomic abnormalities that could have major, minor, or no, clinical significance. Evaluating the significance of a positive or a non-reportable result may involve both invasive testing and additional studies on the mother. Such investigations may lead to a diagnosis of maternal chromosomal or subchromosomal abnormalities, which on occasion may be associated with benign or malignant maternal neoplasms. These tests may not accurately identify triploidy, balanced rearrangements, or the precise location of subchromosomal duplications or deletions; these may be detected by diagnosis with CVS or amniocentesis. The ability to report results may be impacted by maternal BMI, maternal weight, maternal systemic lupus erythematosus (SLE) and/or by certain pharmaceutical agents such as low molecular weight heparin (for example: Lovenox(R), Xaparin(R), Clexane(R) and Fragmin(R)). Performed By: #### T SPN #### CC MAIN BLOOD BANK CLIA [id number] [address] [place] [address] [place] Monosomy X risk Dosage of chromosome-specific cfDNA Ql (Plasma cell-free+WBC DNA) [Interp] Not detected Normal [facility] Comment on above: Order Comment: Speci men Type: BLOOD SPECIMEN [facility] Address: [address] [place] [address] Performed By: #### T SPN #### CC MAIN BLOOD BANK CLIA [id number] [address] [place] [address] [place] NEGATIVE PREDICTIVE VALUE Note Normal [facility] Comment on above: Order Comment: Speci men Type: BLOOD SPECIMEN [facility] Address: [address] [place] [address] Result Comment: The Negative Predictive Value (NPV) for trisomy 21, 18, and 13 is greater than 99%. The NPV for SCA and ESS cannot be calculated as SCA and ESS are only reported when an abnormality is detected. Performed By: #### T SPN #### CC MAIN BLOOD BANK CLIA [id number] [address] [place] [address] NOTE Comment Normal [facility] Comment on above: Order Comment: Specsilvio ace Type: BLOOD SPECIMEN [facility] Address: [address] [place] [address] Result Comment: See Notes [employer]. is a subsidiary of [employer], using the brand [facility]. This test was developed and its performance characteristics determined by [facility]. It has not been cleared or approved by the Food and Drug Administration. This laboratory is certified under the Clinical Laboratory Improvement Amendments (CLIA) as qualified to perform high complexity clinical laboratory testing and accredited by the [employer] (CAP). If there is future clinical need for adding MaterniT GENOME testing, this specimen will be available until term. [facility] samples will not be retained beyond 60 days. [facility] patients will have to send a new sample for re-sequencing ([facility] Test Code: 726249). Performed By: #### T SPN #### CC MAIN BLOOD BANK CLIA [id number] [address] [place] [address] PERFORMANCE CHARACTERISTICS Note Normal [facility] Comment on above: Order Comment: Jostinsilvio ace Type: BLOOD SPECIMEN [facility] Address: [address] [place] [address] Result Comment: ! Sex ! Accuracy: 99.4% ! ! ! ! Region (associated syndrome) ! Est. Sens# ! Est. Spec ! ! ! ! Trisomy 21 (Down Syndrome) ! 99.1% ! 99.9% ! ! ! ! Trisomy 18 (Encarnacion Syndrome) ! >99.9% ! 99.6% ! ! ! ! Trisomy 13 (Patau Syndrome) ! 91.7% ! 99.7% ! ! ! ! Sex Chromosome Aneuploidies## ! 96.2% ! 99.7% ! ! ! * As reported in [facility] database nstd37 [https://www.ncbi.nlm.nih.gov/dbvar/studies/nstd37/ ] # Estimated Sensitivity. Sensitivity estimated across the observed size distribution of each syndrome [per ISCA database nstd37] and across the range of fractions observed in routine clinical NIPT. Actual sensitivity can also be influenced by other factors such as the size of the event, total sequence counts, amplification bias, or sequence bias. ## Morales gestation only. Performed By: #### T SPN #### CC MAIN BLOOD BANK CLIA [id number] [address] [place] [address] [place] POSITIVE PREDICTIVE VALUE N/A Normal [facility] Comment on above: Order Comment: Speci men Type: BLOOD SPECIMEN [facility] Address: [address] [place] [address] Performed By: #### T SPN #### CC MAIN BLOOD BANK CLIA [id number] [address] [place] [address] [place] Reference Lab Test Method Comment Normal [facility] Comment on above: Order Comment: Speci men Type: BLOOD SPECIMEN [facility] Address: [address] [place] [address] Result Comment: See Notes Circulating cell-free DNA was purified from the plasma component of maternal blood. The extracted DNA was then converted into a genomic DNA library for aneuploidy analysis of chromosomes 21, 18, and 13 via next generation sequencing.[1] Optional findings based on the test order include sex chromosome aneuploidy (SCA)[2], and enhanced sequencing series (ESS)[3], which will only be reported on as an additional finding when an abnormality is detected. SCA testing includes information on X and Y representation, while ESS testing includes deletions in selected regions (22q, 15q, 11q, 8q, 5p, 4p, 1p) and trisomy of chromosomes 16 and 22. Performed By: #### T SPN #### CC MAIN BLOOD BANK CLIA [id number] [address] [place] [address] [place] Sex Dosage of chromosome-specific cfDNA Nom (cfDNA) Comment Normal [facility] Comment on above: Order Comment: Speci men Type: BLOOD SPECIMEN [facility] Address: [address] [place] [address] Result Comment: Cons istent with Female Performed By: #### T SPN #### CC MAIN BLOOD BANK CLIA [id number] [address] [place] [address] [place] Test performance information Alec (Unsp spec) Comment Normal [facility] Comment on above: Order Comment: Speci men Type: BLOOD SPECIMEN [facility] Address: [address] [place] [address] Result Comment: The performance characteristics of the MaterniT(R) 21 PLUS laboratory-developed test (LDT) have been determined in a clinical validation study with women at increased risk for chromosomal aneuploidy.[1-4] Performed By: #### T SPN #### CC MAIN BLOOD BANK CLIA [id number] [address] [place] [address] [place] Trisomy 13 risk Dosage of chromosome-specific cfDNA Ql (cfDNA) [Interp] Negative Normal [facility] Comment on above: Order Comment: Speci men Type: BLOOD SPECIMEN [facility] Address: [address] [place] [address] Performed By: #### T SPN #### CC MAIN BLOOD BANK CLIA [id number] [address] [place] [address] [place] Trisomy 18 risk Dosage of chromosome-specific cfDNA Ql (Plasma cell-free+WBC DNA) [Interp] Negative Normal [facility] Comment on above: Order Comment: Speci men Type: BLOOD SPECIMEN [facility] Address: [address] [place] [address] Performed By: #### T SPN #### CC MAIN BLOOD BANK CLIA [id number] [address] [place] [address] [place] PAP TESTon 12-18-2023 ADEQUACY Satisfactory for interpretation. Normal [facility] Comment on above: Order Comment: Speci men Type: FLUID SPECIMEN [facility] Address: [address] [place] [address] Performed By: #### L [id number] #### [facility] CLIA [id number] [address] [place] [address] [place] CASE REPORT Normal [facility] Comment on above: Order Comment: Speci men Type: FLUID SPECIMEN [facility] [facility] Address: [address] [place] [address] Result Comment: Gyne cologic Cytology Report Case: [id number] Authorizing Provider: Blane Bonner APRN.RHEOSTAT ASSEMBLER Collected: 12/18/2023 02:29 PM Ordering Location: OB/Gynecology Received: 12/18/2023 04:49 PM First Screen: Glakasey, Monserrat, CT, ASCP Rescreen: Blane Figueroa, CT, ASCP Specimen: Pap Test, ThinPrep, Cervix Performed By: #### L [id number] #### [facility] CLIA [id number] [address] [place] [address] [place] CLINICAL HISTORY, CYTOLOGY, ADULT PSYCHIATRIST Normal [facility] Comment on above: Order Comment: Speci men Type: FLUID SPECIMEN Ordering Facility: [facility] Address: [address] [place] [address] Result Comment: Preg nant (Indicate Weeks) Positive HPV 10 weeks Performed By: #### L [id number] #### [facility] CLIA [id number] [address] [place] [address] [place] CYTOLOGY PAP OTHER INT Predominance of coccobacilli consistent with shift in vaginal neema Normal [facility] Comment on above: Order Comment: Speci men Type: FLUID SPECIMEN Ordering Facility: [facility] Address: [address] [place] [address] Performed By: #### L [id number] #### [facility] CLIA [id number] [address] [place] [address] [place] FINAL PERFORMING LAB Normal [facility] Comment on above: Order Comment: Speci men Type: FLUID SPECIMEN Ordering Facility: [facility] Address: [address] [place] [address] Result Comment: Tech nical component, irrigation specialist screening performed at [facility], [address] [place] [address] CLIA# [id number] Diagnostic interpretation performed at [facility], [address] [place], [place] [id number] CLIA# [id number] Radio Technician: Kota Cool M.D. Performed By: #### L [id number] #### [facility] CLIA [id number] [address] [place] [address] [place] INTERPRETATION, CYTOLOGY, ADULT PSYCHIATRIST Normal [facility] Comment on above: Order Comment: Speci men Type: FLUID SPECIMEN Ordering Facility: [facility] Address: [address] [place] [address] Result Comment: Nega tive for intraepithelial lesion or malignancy. Performed By: #### L [id number] #### [facility] CLIA [id number] [address] [place] [address] [place] LMP 10/08/2023 Normal [facility] Comment on above: Order Comment: Speci men Type: FLUID SPECIMEN Ordering Facility: [facility] Address: [address] [place] [address] Performed By: #### L [id number] #### [facility] CLIA [id number] [address] [place] [address] [place] PAP DISCLAIMER COMMENT The Pap Smear is a screening test for cervical cancer. False negative results occur with all screening tests, emphasizing the need for rescreening at recommended intervals, and clinical correlation. Normal [facility] Comment on above: Order Comment: Speci men Type: FLUID SPECIMEN Ordering Facility: [facility] Address: [address] [place] [address] Performed By: #### L [id number] #### [facility] CLIA [id number] [address] [place] [address] [place] PAP MARKETING SUPPORT COORDINATOR COMMENT This specimen has been analyzed by the ThinPrep Imaging System, an automated imaging and review system, which assists the laboratory in evaluating cells on ThinPrep Pap tests. Following automated imaging, selected freeman from every slide are reviewed by a irrigation specialist. Normal [facility] Comment on above: Order Comment: Speci db Type: FLUID SPECIMEN Ordering Facility: [facility] Address: [address] [place] [address] Performed By: #### L [id number] #### [facility] CLIA [id number] [address] [place] [address] [place] [address] [place] POC BATHROOM TILING PROFESSIONAL ULTRASOUNDon 12-18-19 Indication Viability; confirm cardiac activity Impression Single intrauterine gestational sac, CRL is appropriate for clinical dates, corresponding to SAMREEN 07/14/24 cardiac activity is visualized Recommendations Follow up for NT scan if desired Method Transabdominal ultrasound examination, Transvaginal ultrasound examination. View: Adequate visualization Morales . Number of fetuses: 1 Dating LMP on: 10/08/2023 GA by LMP 10 w + 1 d SAMREEN by LMP: 07/14/2024 Ultrasound examination on: 12/18/2023 GA by U/S based upon: CRL GA by U/S 10 w + 0 d SAMREEN by U/S: 07/15/2024 Assigned: based on the LMP, selected on 12/18/2023 Assigned GA 10 w + 1 d Assigned SAMREEN: 07/14/2024 Biometry Standard FHR 188 bpm >99% Nicolaides CRL 31.4 mm 10w 0d 22% Hadlock Assessment Gestational sac: visualized Location: intrauterine Yolk sac: visualized Embryo: visualized CRL 31.4 mm 10w 0d 22% Hadlock Cardiac activity: present FHR 188 bpm >99% Nicolaides General Evaluation Cardiac activity present. FHR 188 bpm Performed By: Blane Bonner NP Read By: Blane Bonner NP MATERNAL MEDICINE [facility] Radiology Study observation (narrative) [facility] RUBELLA IGG ANTIBODYon 12-17 RUBELLA IGG AB, QUAL Positive Normal Positive [facility] Comment on above: Order Comment: Stella ace Type: BLOOD SPECIMENOrdering Facility: [facility] Address: [address] [place] [address] Result Comment: The result suggests recent or past exposure to Rubella virus or history of Rubella vaccination. Positive result may also be seen due to presence of passively-transferred antibodies. Please correlate with patient's history. Performed By: #### R [id number] ####[facility] [id number] [place] [address] [place] Reagin and Treponema pallidu m IgG and IgM [Interp]on 12-18-2023 T. pallidum IgG+IgM IA Ql (S) Non-Reactive Normal Nonreactive [facility] Comment on above: Order Comment: Speci men Type: BLOOD SPECIMENOrdering Facility: [facility] Address: [address] [place] [address] Performed By: #### 5 195-3, 42908-0, [id number] ####[facility] [id number] [place] [address] [place] Reagin+T pallidum IgG+IgM Se rPl-Impon 12-18-2023 Reagin and Treponema pallidum IgG and IgM [Interp] Cannot exclude recent Treponemal infection if specimen collected within 7-10 days after appearance of suspect lesions or 2-3 weeks after an exposure. Clinical correlation is required. Normal [facility] Comment on above: Order Comment: Speci men Type: BLOOD SPECIMENOrdering Facility: [facility] Address: [address] [place] [address] Performed By: #### 5 195-3, 76667-3, 39971-7 ####[facility] [id number] [place] [address] [place] TYPE + SCREEN PRENATALon ABO AB Normal [facility] Comment on above: Order Comment: Speci men Type: BLOOD SPECIMEN Ordering Facility: [facility] Address: [address] [place] [address] Performed By: #### T SPN #### [facility] CLIA [id number] [address] [place] [address] [place] Rh Nom (Bld) Positive Normal [facility] Comment on above: Order Comment: Speci men Type: BLOOD SPECIMEN Ordering Facility: [facility] Address: [address] [place] [address] Performed By: #### T SPN #### [facility] CLIA [id number] [address] [place], [place] [address] [address] [place] TYPE AND SCREEN EXPIRATION 12/21/2023 23:59 Normal [facility] Comment on above: Order Comment: Speci men Type: BLOOD SPECIMEN Ordering Facility: [facility] Address: [address] [place] [address] Performed By: #### T SPN #### [facility] CLIA [id number] [address] [place], [place] [address] [address] [facility] CNPNon 12-17-2023 JUANITON Telephone (APOORVAGYWThomas) ---- ALEXIA HUMMEL ([id number]) 1995 F Date Time Provider Department 12/17/23 BLANE BONNER During your visit today, we recorded the following information about you: Basia Cortes RN 12/17/2023 8:51 AM Signed Left message for patient to return phone call to complete nurse intake questions for her upcoming appointment. Patient has an appointment with Blane Bonner for NOB appointment tomorrow at 1:45. I can call her this afternoon or tomorrow morning to complete nurse intake questions Allergies As of Date: 12/17/2023 (No Known Allergies) Date Reviewed: 03/05/2023 Reviewed by: Sandra Melgoza MA - Fully Assessed Reason for Visit: Appointment [186] Prescriptions as of 12/18/2023 - aspirin, enteric coated (ECOTRIN LOW STRENGTH) 81 mg EC tablet Take 1 tablet by mouth once daily. - Napjqcoz-Fs-Hea-Fe- FA tab Take 1 tablet by mouth once daily. Problem List As Of Date 12/17/2023 Noted Resolved Patient requested diagnostic testing [Z01.89] 12/28/2015 02/07/2016 Encounter for supervision of normal first pregn*01/09/2016 09/30/2016 Encounter Status:Closed by TARA NICHOLAS on 12/18/23 Normal [facility] HCG QUAL UR B/Oon 03-05-2023 status Negative neg - pos Maico gue[facility] Quality Check Yes [facility] Vital Signs Date Time Vital Sign Value Performing Clinician Facility 07-23-2024 08:28-0400 Body temperature 98 [degF] No Primary Care Physician [facility] 07-23-2024 08:28-0400 Diastolic blood pressure 70 mm[Hg] No Primary Care Physician [facility] 07-23-2024 08:28-0400 Respiratory rate 16 /min No Primary Care Physician [facility] 07-23-2024 08:28-0400 Systolic blood pressure 133 mm[Hg] No Primary Care Physician [facility] 07-23-2024 04:55-0400 Heart rate 77 /min No Primary Care Physician [facility] 07-23-2024 04:55-0400 SaO2% (BldA) [Mass fraction] 97 % No Primary Care Physician [facility] 07-21-2024 07:40-0400 Body height 162.56 cm No Primary Care Physician [facility] 07-21-2024 07:40-0400 Body mass index (BMI) [Ratio] 34.4 kg/m2 No Primary Care Physician [facility] 07-21-2024 07:40-0400 Body weight 91.17 kg No Primary Care Physician [facility] 07-20-2024 10:57-0400 Body mass index (BMI) [Ratio] 33.17 kg/m2 Azalia Cm APRN.CNM Work Phone: [facility] 07-20-2024 10:57-0400 Body weight 88.45 kg Azalia Cm APRN.CNM Work Phone: [facility] 07-20-2024 10:57-0400 Diastolic blood pressure 74 mm[Hg] Azalia Cm INSTITUTIONAL NUTRITION CONSULTANT.CNM Work Phone: [facility] 07-20-2024 10:57-0400 Systolic blood pressure 122 mm[Hg] Azalia Cm INSTITUTIONAL NUTRITION CONSULTANT.CNM Work Phone: [facility] 07-12-2024 13:35-0400 Body mass index (BMI) [Ratio] 32.97 kg/m2 Ronald Anton MD Work Phone: [facility] 07-12-2024 13:35-0400 Body weight 87.91 kg Ronald Anton MD Work Phone: [facility] 07-12-2024 13:35-0400 Diastolic blood pressure 74 mm[Hg] Ronald Anton MD Work Phone: [facility] 07-12-2024 13:35-0400 Systolic blood pressure 126 mm[Hg] Ronald Anton MD Work Phone: [facility] 07-05-2024 13:05-0400 Body mass index (BMI) [Ratio] 32.18 kg/m2 Roxie Plotzeyad INSTITUTIONAL NUTRITION CONSULTANT.CNM Work Phone: [facility] 07-05-2024 13:05-0400 Body weight 85.82 kg Roxie Plotts INSTITUTIONAL NUTRITION CONSULTANT.CNM Work Phone: [facility] 07-05-2024 13:05-0400 Diastolic blood pressure 78 mm[Hg] Roxie Plotts INSTITUTIONAL NUTRITION CONSULTANT.CNM Work Phone: [facility] 07-05-2024 13:05-0400 Systolic blood pressure 112 mm[Hg] Roxie Plotts INSTITUTIONAL NUTRITION CONSULTANT.CNM Work Phone: [facility] 06-29-2024 16:08-0400 Body mass index (BMI) [Ratio] 32.15 kg/m2 Azalia Cm INSTITUTIONAL NUTRITION CONSULTANT.CNM Work Phone: [facility] 06-29-2024 16:08-0400 Body weight 85.73 kg Azalia Cm INSTITUTIONAL NUTRITION CONSULTANT.CNM Work Phone: [facility] 06-29-2024 16:08-0400 Diastolic blood pressure 72 mm[Hg] Azalia Cm INSTITUTIONAL NUTRITION CONSULTANT.CNM Work Phone: [facility] 06-29-2024 16:08-0400 Systolic blood pressure 118 mm[Hg] Azalia Cm INSTITUTIONAL NUTRITION CONSULTANT.CNM Work Phone: [facility] 06-21-2024 13:59-0400 Body mass index (BMI) [Ratio] 31.67 kg/m2 Suzy Paiz MD Work Phone: [facility] 06-21-2024 13:59-0400 Body weight 84.46 kg Suzy Paiz MD Work Phone: [facility] 06-21-2024 13:59-0400 Diastolic blood pressure 68 mm[Hg] Suzy Paiz MD Work Phone: [facility] 06-21-2024 13:59-0400 Systolic blood pressure 120 mm[Hg] Suzy Paiz MD Work Phone: [facility] 06-07-2024 12:57-0400 Body mass index (BMI) [Ratio] 31.13 kg/m2 Roxie Smith INSTITUTIONAL NUTRITION CONSULTANT.CNM Work Phone: [facility] 06-07-2024 12:57-0400 Body weight 83.01 kg Roxie Smith INSTITUTIONAL NUTRITION CONSULTANT.CNM Work Phone: [facility] 06-07-2024 12:57-0400 Diastolic blood pressure 70 mm[Hg] Roxie Smith INSTITUTIONAL NUTRITION CONSULTANT.CNM Work Phone: [facility] 06-07-2024 12:57-0400 Systolic blood pressure 116 mm[Hg] Roxie Smith INSTITUTIONAL NUTRITION CONSULTANT.CNM Work Phone: [facility] 05-24-2024 13:07-0400 Body mass index (BMI) [Ratio] 30.28 kg/m2 Suzy Paiz MD Work Phone: [facility] 05-24-2024 13:07-0400 Body weight 80.74 kg Suzy Paiz MD Work Phone: [facility] 05-24-2024 13:07-0400 Diastolic blood pressure 62 mm[Hg] Suzy Paiz MD Work Phone: [facility] 05-24-2024 13:07-0400 Systolic blood pressure 118 mm[Hg] Suzy Paiz MD Work Phone: [facility] 05-10-2024 13:04-0400 Body mass index (BMI) [Ratio] 29.77 kg/m2 Azalia Cm APRN.CNM Work Phone: [facility] 05-10-2024 13:04-0400 Body weight 79.38 kg Azalia Cm APRN.CNM Work Phone: [facility] 05-10-2024 13:04-0400 Diastolic blood pressure 60 mm[Hg] Azalia Cm APRN.CNM Work Phone: [facility] 05-10-2024 13:04-0400 Systolic blood pressure 110 mm[Hg] Azalia Cm APRN.CNM Work Phone: [facility] 05-08-2024 17:26-0400 Body temperature 98.6 [degF] No Primary Care Physician [facility] 05-08-2024 17:26-0400 Diastolic blood pressure 54 mm[Hg] No Primary Care Physician [facility] 05-08-2024 17:26-0400 Heart rate 81 /min No Primary Care Physician [facility] 05-08-2024 17:26-0400 Respiratory rate 18 /min No Primary Care Physician [facility] 05-08-2024 17:26-0400 SaO2% (BldA) [Mass fraction] 98 % No Primary Care Physician [facility] 05-08-2024 17:26-0400 Systolic blood pressure 131 mm[Hg] No Primary Care Physician [facility] 05-08-2024 16:09-0400 Body height 162.56 cm No Primary Care Physician [facility] 05-08-2024 16:09-0400 Body mass index (BMI) [Ratio] 36.8 kg/m2 No Primary Care Physician [facility] 05-08-2024 16:09-0400 Body weight 97.5 kg No Primary Care Physician [facility] 04-26-2024 13:02-0500 Body mass index (BMI) [Ratio] 28.75 kg/m2 Suzy Paiz MD Work Phone: [facility] 04-26-2024 13:02-0500 Body weight 76.66 kg Suzy Paiz MD Work Phone: [facility] 04-26-2024 13:02-0500 Diastolic blood pressure 60 mm[Hg] Suzy Paiz MD Work Phone: [facility] 04-26-2024 13:02-0500 Systolic blood pressure 110 mm[Hg] Suzy Paiz MD Work Phone: [facility] 03-29-2024 14:21-0500 Body mass index (BMI) [Ratio] 28.07 kg/m2 Azalia Cm INSTITUTIONAL NUTRITION CONSULTANT.CNM Work Phone: [facility] 03-29-2024 14:21-0500 Body weight 74.84 kg Azalia Cm INSTITUTIONAL NUTRITION CONSULTANT.CNM Work Phone: [facility] 03-29-2024 14:21-0500 Diastolic blood pressure 66 mm[Hg] Azalia Cm INSTITUTIONAL NUTRITION CONSULTANT.CNM Work Phone: [facility] 03-29-2024 14:21-0500 Systolic blood pressure 104 mm[Hg] Azalia Cm INSTITUTIONAL NUTRITION CONSULTANT.CNM Work Phone: [facility] 03-01-2024 14:24-0500 Body mass index (BMI) [Ratio] 25.51 kg/m2 Blane Bonner INSTITUTIONAL NUTRITION CONSULTANT.RHEOSTAT ASSEMBLER Work Phone: [facility] 03-01-2024 14:24-0500 Body weight 68.04 kg Blane Bonner APRN.RHEOSTAT ASSEMBLER Work Phone: [facility] 03-01-2024 14:24-0500 Diastolic blood pressure 62 mm[Hg] Blane Bonner APRN.RHEOSTAT ASSEMBLER Work Phone: [facility] 03-01-2024 14:24-0500 Systolic blood pressure 114 mm[Hg] Blanesteff Celestinbetty DAVISRHEOSTAT ASSEMBLER Work Phone: [facility] 02-06-2024 16:59-0500 Diastolic blood pressure 71 mm[Hg] Tyrell Orozco DO Work Phone: [facility] 02-06-2024 16:59-0500 Heart rate 84 /min Tyrell Orozco DO Work Phone: [facility] 02-06-2024 16:59-0500 Respiratory rate 16 /min Tyrell Orozco DO Work Phone: [facility] 02-06-2024 16:59-0500 SaO2% (BldA) [Mass fraction] 98 % Tyrell Orozco DO Work Phone: [facility] 02-06-2024 16:59-0500 Systolic blood pressure 119 mm[Hg] Tyrell Orozco DO Work Phone: [facility] 02-06-2024 16:02-0500 Body height 162.6 cm Tyrell Orozco DO Work Phone: [facility] 02-06-2024 16:02-0500 Body mass index (BMI) [Ratio] 24.72 kg/m2 Tyrell Orozco DO Work Phone: [facility] 02-06-2024 16:02-0500 Body temperature 98.2 [degF] Tyrell Orozco DO Work Phone: [facility] 02-06-2024 16:02-0500 Body weight 65.32 kg Tyrell Orozco DO Work Phone: [facility] 02-02-2024 13:03-0500 Body mass index (BMI) [Ratio] 25 kg/m2 Azalia Cm APRN.CNM Work Phone: [facility] 02-02-2024 13:03-0500 Body weight 66.68 kg Azalia Cm APRN.CNM Work Phone: [facility] 02-02-2024 13:03-0500 Diastolic blood pressure 64 mm[Hg] Azalia Cm INSTITUTIONAL NUTRITION CONSULTANT.CNM Work Phone: [facility] 02-02-2024 13:03-0500 Systolic blood pressure 116 mm[Hg] Azalia Cm INSTITUTIONAL NUTRITION CONSULTANT.CNM Work Phone: [facility] 01-05-2024 13:35-0500 Body mass index (BMI) [Ratio] 24.63 kg/m2 Ronald Anton MD Work Phone: [facility] 01-05-2024 13:35-0500 Body weight 65.68 kg Ronald Anton MD Work Phone: [facility] 01-05-2024 13:35-0500 Diastolic blood pressure 60 mm[Hg] Ronald Anton MD Work Phone: [facility] 01-05-2024 13:35-0500 Systolic blood pressure 118 mm[Hg] Ronald Anton MD Work Phone: [facility] 12-18-2023 13:47-0400 Body height 163.3 cm Blane Haury INSTITUTIONAL NUTRITION CONSULTANT.RHEOSTAT ASSEMBLER Work Phone: [facility] 12-18-2023 13:47-0400 Body mass index (BMI) [Ratio] 22.96 kg/m2 Blane Haury INSTITUTIONAL NUTRITION CONSULTANT.RHEOSTAT ASSEMBLER Work Phone: [facility] 12-18-2023 13:47-0400 Body weight 61.24 kg Blane Haury INSTITUTIONAL NUTRITION CONSULTANT.RHEOSTAT ASSEMBLER Work Phone: [facility] 12-18-2023 13:47-0400 Diastolic blood pressure 60 mm[Hg] Blane Haury INSTITUTIONAL NUTRITION CONSULTANT.RHEOSTAT ASSEMBLER Work Phone: [facility] 12-18-2023 13:47-0400 Systolic blood pressure 120 mm[Hg] Blane Haury INSTITUTIONAL NUTRITION CONSULTANT.RHEOSTAT ASSEMBLER Work Phone: [facility] 12-14-2023 22:36-0400 Diastolic blood pressure 61 mm[Hg] Hardeep Wilson DO Work Phone: [facility] 12-14-2023 22:36-0400 Heart rate 98 /min Hardeep Wilson DO Work Phone: [facility] 12-14-2023 22:36-0400 Respiratory rate 16 /min Hardeep Wilson DO Work Phone: [facility] 12-14-2023 22:36-0400 SaO2% (BldA) [Mass fraction] 99 % Hardeep Wilson DO Work Phone: [facility] 12-14-2023 22:36-0400 Systolic blood pressure 116 mm[Hg] Hardeep Wilson DO Work Phone: [facility] 12-14-2023 22:06-0400 Body height 162.6 cm Hardeep Wilson DO Work Phone: [facility] 12-14-2023 22:06-0400 Body mass index (BMI) [Ratio] 24.89 kg/m2 Hardeep Wilson DO Work Phone: [facility] 12-14-2023 22:06-0400 Body temperature 99.3 [degF] Hardeep Wilson DO Work Phone: [facility] 12-14-2023 22:06-0400 Body weight 65.77 kg Hardeep Wilson DO Work Phone: [facility] 03-05-2023 08:45-0500 Body weight 65.32 kg Luli Marcus MD Work Phone: [facility] 03-05-2023 08:45-0500 Diastolic blood pressure 70 mm[Hg] Luli Marcus MD Work Phone: [facility] 03-05-2023 08:45-0500 Systolic blood pressure 110 mm[Hg] Luli Marcus MD Work Phone: [facility] 01-09-2023 13:46-0500 Body height 162.6 cm Cecilia Solorzano APRN.CNP Work Phone: [facility] 01-09-2023 13:46-0500 Body weight 67.86 kg Cecilia [place] INSTITUTIONAL NUTRITION CONSULTANT.RHEOSTAT ASSEMBLER Work Phone: [facility] 01-09-2023 13:46-0500 Diastolic blood pressure 60 mm[Hg] Cecilia [place] INSTITUTIONAL NUTRITION CONSULTANT.RHEOSTAT ASSEMBLER Work Phone: [facility] 01-09-2023 13:46-0500 Systolic blood pressure 150 mm[Hg] Cecilia [place] INSTITUTIONAL NUTRITION CONSULTANT.RHEOSTAT ASSEMBLER Work Phone: [facility] 01-06-2023 10:52-0500 Body height 162.[address] [facility] 01-06-2023 10:52-0500 Body mass index (BMI) [Ratio] 26.2 kg/m2 [facility] 01-06-2023 10:52-0500 Body temperature 96.5 [degF] [facility] 01-06-2023 10:52-0500 Body weight 69.[address] [facility] 01-06-2023 10:52-0500 Diastolic blood pressure 82 mm[Hg] [facility] 01-06-2023 10:52-0500 Heart rate 74 /min [facility] 01-06-2023 10:52-0500 Respiratory rate 18 /min [facility] 01-06-2023 10:52-0500 SaO2% (BldA) [Mass fraction] 100 % [facility] 01-06-2023 10:52-0500 Systolic blood pressure 118 mm[Hg] [facility] 12-21-2022 09:14-0400 Body height 162.[address] [facility] 12-21-2022 09:14-0400 Body mass index (BMI) [Ratio] 26.1 kg/m2 [facility] 12-21-2022 09:14-0400 Body temperature 96.2 [degF] [facility] 12-21-2022 09:14-0400 Body weight 68.[address] [facility] 12-21-2022 09:14-0400 Diastolic blood pressure 86 mm[Hg] [facility] 12-21-2022 09:14-0400 Heart rate 70 /min [facility] 12-21-2022 09:14-0400 Respiratory rate 16 /min [facility] 12-21-2022 09:14-0400 SaO2% (BldA) [Mass fraction] 100 % [facility] 12-21-2022 09:140400 Systolic blood pressure 136 mm[Hg] [facility] Encounters Encounter Date Encounter Type Care Provider Facility Start: 07-22-2024 End: 07-22-2024 ambulatory Azalia Cm APRN.CNM Work Phone: OB/Gynecology Comment on above: Ob Delivery Note Start: 07-21-2024 End: 07-23-2024 Evaluation and management of inpatient Azalia Cm CN[facility] Work Phone: Start: 07-20-2024 End: 07-20-2024 Patient encounter procedure Azalia Cm APRN.CNThomas Work Phone: OB/Gynecology Comment on above: Supervision of high risk in third trimester (HCC) (Primary Dx); 40 weeks gestation of (HCC); History of vacuum extraction assisted delivery; Chlamydia infection affecting in first trimester (HCC) Start: 07-20-2024 End: 07-20-2024 ambulatory AZALIA CM Facility:[facility] Start: 07-12-2024 End: 07-12-2024 Patient encounter procedure Ronald Anton MD Work Phone: OB/Gynecology Comment on above: 39 weeks gestation o f (HCC) (Primary Dx); Supervision of high risk in third trimester (HCC) Start: 07-12-2024 End: 07-12-2024 ambulatory RONALD ANTON Facility:[facility] Start: 07-05-2024 End: 07-05-2024 Patient encounter procedure Roxie Smith APRN.CNThomas Work Phone: OB/Gynecology Comment on above: 38 weeks gestation o f (HCC) (Primary Dx); Supervision of high risk in third trimester (HCC); History of vacuum extraction assisted delivery Start: 07-05-2024 End: 07-05-2024 ambulatory ROXIE SMITH Facility:[facility] Start: 07-02-2024 End: 07-02-2024 ambulatory Laura Cole MA [facility] Start: 07-02-2024 End: 07-02-2024 Patient encounter procedure Laura Cole MA [facility] Comment on above: Population Health Na vigation Outreach (Ob/peds/) Start: 06-29-2024 End: 06-29-2024 ambulatory AZALIA CM Facility:[facility] Start: 06-29-2024 End: 06-29-2024 Patient encounter procedure Azalia Toi INSTITUTIONAL NUTRITION CONSULTANT.CNM Work Phone: OB/Gynecology Comment on above: Supervision of high risk in third trimester (HCC) (Primary Dx); 37 weeks gestation of (HCC); History of vacuum extraction assisted delivery; Chlamydia infection affecting in first trimester (HCC) Start: 06-21-2024 End: 06-21-2024 Office outpatient visit 15 minutes Suzy Paiz MD Work Phone: OB/Gynecology Comment on above: 36 weeks gestation o f (HCC) (Primary Dx); Supervision of high risk in third trimester (HCC); History of vacuum extraction assisted delivery Start: 06-21-2024 End: 06-21-2024 ambulatory SZUY PAIZ Facility:[facility] Start: 06-07-2024 End: 06-07-2024 ambulatory AZALIA TOI Facility:[facility] Start: 06-07-2024 End: 06-07-2024 Patient encounter procedure Rxoie Smith INSTITUTIONAL NUTRITION CONSULTANT.CNM Work Phone: OB/Gynecology Comment on above: Supervision of high risk in third trimester (HCC) (Primary Dx); History of vacuum extraction assisted delivery; 34 weeks gestation of (HCC) Start: 05-24-2024 End: 05-24-2024 ambulatory SUZY PAIZ Facility:[facility] Start: 05-24-2024 End: 05-24-2024 Office outpatient visit 15 minutes Suzy Paiz MD Work Phone: OB/Gynecology Comment on above: Supervision of high risk in third trimester (Primary Dx); History of vacuum extraction assisted delivery; 32 weeks gestation of Start: 05-10-2024 End: 05-10-2024 ambulatory AZALIA TOI Facility:[facility] Start: 05-10-2024 End: 05-10-2024 Patient encounter procedure Azalia Cm APRN.CNM Work Phone: OB/Gynecology Comment on above: Supervision of high risk in third trimester (Primary Dx); 30 weeks gestation of Start: 05-08-2024 End: 05-08-2024 Emergency department patient visit No Primary Care Physician -Emergency Department Work Phone: Start: 04-30-2024 End: 04-30-2024 ambulatory Blane Bonner APRN.RHEOSTAT ASSEMBLER Work Phone: OB/Gynecology Comment on above: [address] Start: 04-30-2024 End: 04-30-2024 Telephone encounter Blane Bonner APRN.CNP Work Phone: OB/Gynecology Comment on above: breast pump Start: 04-27-2024 End: 06-27-2024 Follow-up encounter Azalia Cm APRN.CNM Work Phone: OB/Gynecology Start: 04-27-2024 End: 04-27-2024 Telephone encounter Nurse Manager [employer] Madhuri Myers Work Phone: Obstetrics/Gynecology Comment on above: PRAF Start: 04-26-2024 End: 04-26-2024 Office outpatient visit 15 minutes Suzy Paiz MD Work Phone: OB/Gynecology Comment on above: Supervision of high risk in third trimester (Primary Dx); 28 weeks gestation of Start: 04-26-2024 End: 04-26-2024 ambulatory AZALIA TOI Facility:[facility] Start: 04-15-2024 End: 04-15-2024 Refill Blane Bonner APRN.RHEOSTAT ASSEMBLER Work Phone: OB/Gynecology Comment on above: Refill Request Start: 03-29-2024 End: 03-29-2024 ambulatory AZALIAHARITHA CM Facility:[facility] Start: 03-29-2024 End: 03-29-2024 Patient encounter procedure Azalia Cm APRN.CNM Work Phone: OB/Gynecology Comment on above: Supervision of high risk in second trimester (Primary Dx); 24 weeks gestation of ; History of vacuum extraction assisted delivery; Screening for diabetes mellitus; Chlamydia infection affecting in first trimester Start: 03-02-2024 End: 03-02-2024 Telephone encounter Nurse Manager [employer] Madhuri Myers Work Phone: Obstetrics/Gynecology Comment on above: PRAF Start: 03-01-2024 End: 03-01-2024 ambulatory BLANE BONNER Facility:[facility] Start: 03-01-2024 End: 03-01-2024 Patient encounter procedure Blane Bonner INSTITUTIONAL NUTRITION CONSULTANT.RHEOSTAT ASSEMBLER Work Phone: OB/Gynecology Comment on above: Supervision of high risk in second trimester (Primary Dx); 20 weeks gestation of ; Chlamydia infection affecting in first trimester; History of vacuum extraction assisted delivery Encounter for anatomic survey (Primary Dx); 20 weeks gestation of Start: 03-01-2024 End: 03-01-2024 ambulatory BLANE BONNER Facility:[facility] Start: 02-06-2024 End: 02-06-2024 Emergency department patient visit Tyrell Orozco DO Work Phone: [facility] Comment on above: Abdominal cramping c omplicating (HHS-HCC) (Primary Dx) Start: 02-02-2024 End: 02-02-2024 ambulatory AZALIA CM Facility:[facility] Start: 02-02-2024 End: 02-02-2024 Patient encounter procedure Azalia Cm APRN.CNM Work Phone: OB/Gynecology Comment on above: Encounter for superv ision of high risk in first trimester, antepartum (Primary Dx); Chlamydia infection affecting in first trimester; Condyloma acuminata of vulva during in first trimester; ASCUS with positive high risk HPV cervical; History of vacuum extraction assisted delivery; 16 weeks gestation of Start: 01-12-2024 End: 01-12-2024 ambulatory Blane Bonner APRN.RHEOSTAT ASSEMBLER Work Phone: OB/Gynecology Comment on above: Concern Start: 01-05-2024 End: 01-05-2024 ambulatory RONALD ANTON Facility:[facility] Start: 01-05-2024 End: 01-05-2024 Patient encounter procedure Ronald Anton MD Work Phone: OB/Gynecology Comment on above: Encounter for superv ision of high risk in first trimester, antepartum (Primary Dx); 12 weeks gestation of Encounter for amrita vu screening for malformation using ultrasound (Primary Dx); 12 weeks gestation of Start: 12-25-2023 End: 12-25-2023 ambulatory Blane Bonner APRN.RHEOSTAT ASSEMBLER Work Phone: OB/Gynecology Comment on above: Genetic testing Start: 12-19-2023 End: 12-19-2023 Telephone encounter Nurse Manager [employer] Madhuri Myers Work Phone: Obstetrics/Gynecology Comment on above: PRAF Results Start: 12-18-2023 End: 12-18-2023 ambulatory BLANE BONNER Facility:[facility] Start: 12-18-2023 End: 12-18-2023 Patient encounter procedure Blane Bonner APRN.RHEOSTAT ASSEMBLER Work Phone: OB/Gynecology Comment on above: Encounter for superv ision of high risk in first trimester, antepartum (Primary Dx); 10 weeks gestation of ; with uncertain dates in first trimester; Screening for cervical cancer; History of vacuum extraction assisted delivery; ASCUS with positive high risk HPV cervical; Vaginal bleeding affecting early ; Condyloma acuminata of vulva during in first trimester; Family history of autism Start: 12-17-2023 End: 12-18-2023 Telephone encounter Blane Bonner APRN.RHEOSTAT ASSEMBLER Work Phone: OB/Gynecology Comment on above: Appointment Start: 12-14-2023 End: 12-14-2023 Emergency department patient visit Hardeep Wilson DO Work Phone: [facility] Emergency Medicine Comment on above: Vaginal bleeding dur ing ([facility]) (Primary Dx) Start: 03-05-2023 End: 03-05-2023 Patient encounter procedure Luli Marcus MD Work Phone: OB/Gynecology Comment on above: ASCUS with positive high risk HPV cervical (Primary Dx) Start: 01-27-2023 Telephone encounter Cecilia garcia MONY.RHEOSTAT ASSEMBLER Work Phone: OB/Gynecology Comment on above: Results Start: 01-09-2023 End: 01-09-2023 Patient encounter procedure Cecilia Solorzano RHEOSTAT ASSEMBLER Work Phone: OB/Gynecology Comment on above: Encounter for gyneco logical examination (general) (routine) without abnormal findings (Primary Dx); Screening for cervical cancer; Encounter for screening for human papillomavirus (HPV); Screen for STD (sexually transmitted disease); Encounter for initial prescription of other contraceptives; Genital warts Start: 01-09-2023 End: 01-09-2023 Patient encounter status Cecilia Solorzano MONY.JUANITO Work Phone: [facility] Work Phone: Start: 01-06-2023 End: 01-06-2023 [facility] Start: 12-21-2022 End: 12-21-2022 Emergency department patient visit [facility] Work Phone: Start: 12-28-2015 End: 02-07-2016 Patient requested procedure Blane Bonner KELLY Work Phone: [facility] Work Phone: Procedures Date Procedure Procedure Detail Performing Clinician Start: 07-21-2024 Flow cytometry cell surf marker techl only 1st No Primary Care Physician Start: 07-21-2024 Serologic test for syphilis No Primary Care Physician Start: 07-12-2024 Urnls dip stick/tabl et rgnt non-auto w/o micrscp Ronald Anton MD Work Phone: Start: 07-05-2024 Urnls dip stick/tabl et rgnt non-auto w/o micrscp Ronald Anton MD Work Phone: Start: 06-21-2024 Urnls dip stick/tabl et rgnt non-auto w/o micrscp Suzy Paiz MD Work Phone: Start: 06-07-2024 Urnls dip stick/tabl et rgnt non-auto w/o micrscp Azalia Cm APRN.CNM Work Phone: Start: 03-01-2024 Us preg uterus after 1st trimest 1/ gestation Blane Bonner INSTITUTIONAL NUTRITION CONSULTANT.RHEOSTAT ASSEMBLER Work Phone: Start: 02-06-2024 Urnls dip stick/tabl et rgnt auto w/o microscopy Tyrell Orozco DO Work Phone: Start: 01-05-2024 Us nuchal translucency 1st gestation Blane Bonner INSTITUTIONAL NUTRITION CONSULTANT.RHEOSTAT ASSEMBLER Work Phone: Start: 12-18-2023 Antibody screen AZALIAHARITHA CM Comment on above: Order Comment: Speci men Type: BLOOD SPECIMEN Ordering Facility: [facility] Address: [address] [place] [address] Performed By: #### T SPN #### [facility] CLIA [id number] [address] [place] [address] [place] Start: 12-18-2023 Us uterus l imited fetuses Blane Bonner INSTITUTIONAL NUTRITION CONSULTANT.RHEOSTAT ASSEMBLER Work Phone: Start: 12-18-2023 Adult depression scr eening assessment Ronald Anton MD Work Phone: Start: 12-18-2023 Microscopic observat ion [Identifier] in Cervix by Cyto stain Tyrell Orozco DO Work Phone: Start: 03-05-2023 Urine test visual color cmprsn stephanie Marcus MD Work Phone: Start: 01-09-2023 Microscopic observat ion [Identifier] in Cervix by Cyto stain Hardeep Wilson DO Work Phone: Start: 12-21-2022 X-ray of both feet Plan of Treatment Date Care Activity Detail Author Start: 07-10-2071 RSV High Risk: (Elde rly (60+) or Population) (1 - 1-dose 75+ series) RSV High Risk: (Elderly (60+) or Population) (1 - 1-dose 75+ series) [facility] Start: 2046 Zoster Vaccines (1 of 2) Zoster Vacc gilberto (1 of 2) [facility] Start: 12-17-2026 Screening for malign ant neoplasm of cervix [facility] Start: 01-09-2026 Pap Testing Pap Testing [facility] Start: 01-09-2026 Screening for malign ant neoplasm of cervix Pap Testing [facility] Start: 12-17-2024 Anxiety Screening Anxiety Screening [facility] Start: 12-17-2024 Depression Screening Depression Scre ening [facility] Start: 12-17-2024 Screening for malign ant neoplasm of cervix Cervical Cancer Screening [facility] Start: 10-25-2024 Influenza vaccination Influenz a Vaccine (Season Ended) [facility] Start: 07-23-2024 Patient discharge [facility] Start: 07-21-2024 Administration of medication [facility] Start: 07-21-2024 Application of ice collar, cap or bag [facility] Start: 07-21-2024 Catheterization of vein [facility] Start: 07-21-2024 Introduction of urin haritha catheter [facility] Start: 07-21-2024 Measuring intake and output [facility] Start: 07-21-2024 Notification of physician [facility] Start: 07-21-2024 Procedure discontinued [facility] Start: 07-21-2024 Provision of activit y privileges [facility] Start: 07-21-2024 Vital signs measurements [facility] Start: 07-21-2024 End: 07-21-2024 [facility] Start: 07-21-2024 Documentation procedure [facility] Start: 07-21-2024 Admission procedure [facility] Start: 07-21-2024 Consultation [facility] Start: 07-20-2024 End: 07-20-2024 Patient encounter procedure 07/20/2024 11:15 AM EDT Routine Office Visit OB/Gynecology [address] [place] [address] Azalia Cm APRN.CNM [address] [place] [address] OB OB/Gynecology Comment on above: OB Start: 07-12-2024 End: 07-12-2024 Patient encounter procedure 07/12/2024 1:40 PM EDT Routine Office Visit OB/Gynecology [address] [place] [address] Ronald Anton MD [address] [place] [address] If an appointment opens closer to 1pm that's great OB/Gynecology Comment on above: If an appointment op ens closer to 1pm that's great Start: 07-05-2024 End: 07-05-2024 Patient encounter procedure 07/05/2024 1:30 PM EDT Routine Office Visit OB/Gynecology [address] [place] [address] Ronald Anton MD [address] [place] [address] OB Routine OB/Gynecology Comment on above: OB Routine Start: 06-29-2024 End: 06-29-2024 Patient encounter procedure 06/29/2024 4:30 PM EDT Routine Office Visit OB/Gynecology [address] [place] [address] Azalia Cm APRN.CNM [address] [place] [address] OB Routine OB/Gynecology Comment on above: OB Routine Start: 06-21-2024 End: 06-21-2024 Patient encounter procedure 06/21/2024 1:50 PM EDT Routine Office Visit OB/Gynecology [address] [place] [address] Suzy Paiz MD [address] [place] [address] OB Routine OB/Gynecology Comment on above: OB Routine Start: 06-07-2024 End: 06-07-2024 Patient encounter procedure 06/07/2024 1:15 PM EDT Routine Office Visit OB/Gynecology [address] [place] [address] Azalia Cm APRN.CNM [address] [place] [place] [address] OB Routine OB/Gynecology Comment on above: OB Routine Start: 05-24-2024 End: 05-24-2024 Patient encounter procedure 05/24/2024 1:10 PM EDT Routine Office Visit OB/Gynecology [address] [place] [address] Suzy Paiz MD [address] [place] [address] OB Routine OB/Gynecology Comment on above: OB Routine Start: 05-10-2024 End: 05-10-2024 Patient encounter procedure 05/10/2024 1:15 PM EDT Routine Office Visit OB/Gynecology [address] [place] [address] Azalia Cm APRN.CN [address] [place] [place] [address] OB Routine OB/Gynecology Comment on above: OB Routine Start: 05-08-2024 [place] [facility] Start: 04-26-2024 End: 04-26-2024 Patient encounter procedure 04/26/2024 1:10 PM EST Routine Office Visit OB/Gynecology [address] [place] [address] Suzy Paiz MD [address] [place] [address] OB OB/Gynecology Comment on above: OB Start: 04-26-2024 End: 04-26-2024 ambulatory 04/26/2024 12:30 PM EST Results Only [facility]estina Alas [facility] [address] [place] [address] Celestina Alas [facility] Start: 03-29-2024 End: 03-29-2024 Patient encounter procedure 03/29/2024 2:30 PM EST Routine Office Visit OB/Gynecology [address] [place] [address] Azalia Cm APRN.CNM [address] [place] [address] OB Routine OB/Gynecology Comment on above: OB Routine Start: 03-29-2024 End: 06-28-2024 ANEMIA REFLEX PANEL ANEMIA REFLEX PANEL Lab Routine Supervision of high risk in second trimester History of vacuum extraction assisted delivery 24 weeks gestation of Expected: 03/29/2024, Expires: 06/28/2024 [facility] Comment on above: Expected: 03/29/2024 , Expires: 06/28/2024 Start: 03-29-2024 End: 03-29-2025 GESTATIONAL GLUCOSE SCREEN, 1-HOUR, 50 GRAM, NON-FASTING GESTATIONAL GLUCOSE SCREEN, 1-HOUR, 50 GRAM, NON-FASTING Lab Routine Supervision of high risk in second trimester History of vacuum extraction assisted delivery 24 weeks gestation of Screening for diabetes mellitus Expected: 03/29/2024, Expires: 03/29/2025 [facility] Work Phone: Comment on above: Expected: 03/29/2024 , Expires: 03/29/2025 Start: 03-29-2024 End: 03-29-2025 SYPHILIS TREPONEMAL W/REFLEX SYPHILIS TREPONEMAL W/REFLEX Lab Routine Supervision of high risk in second trimester History of vacuum extraction assisted delivery 24 weeks gestation of Expected: 03/29/2024, Expires: 03/29/2025 [facility] Comment on above: Expected: 03/29/2024 , Expires: 03/29/2025 Start: 03-01-2024 End: 03-01-2024 Patient encounter procedure [facility] Comment on above: Anatomy Scan OB Routine Start: 02-02-2024 End: 02-02-2024 Patient encounter procedure 02/02/2024 1:00 PM EST Routine Office Visit OB/Gynecology [address] [place] [address] Azalia Cm APRN.CNM [address] [place] [address] OB Routine OB/Gynecology Comment on above: OB Routine Start: 01-10-2024 Screening for malign ant neoplasm of cervix Cervical Cancer Screening [facility] Start: 01-05-2024 End: 01-05-2024 Patient encounter procedure [facility] Comment on above: Nuchal Routine OB Start: 12-18-2023 End: 03-18-2024 Chromosome 21 trisomy [Presence] in Blood or Tissue by Cytogenetics [facility] Comment on above: Expected: 12/18/2023 , Expires: 03/18/2024 Start: 12-18-2023 End: 03-18-2024 Hemoglobin A1c in Blood [facility] Comment on above: Expected: 12/18/2023 , Expires: 03/18/2024 Start: 12-18-2023 End: 03-18-2024 Hepatitis B virus surface Ag [Presence] in Serum [facility] Comment on above: Expected: 12/18/2023 , Expires: 03/18/2024 Start: 12-18-2023 End: 03-18-2024 Hepatitis C virus Ab [Presence] in Serum [facility] Comment on above: Expected: 12/18/2023 , Expires: 03/18/2024 Start: 12-18-2023 End: 03-18-2024 HIV 1+2 Ab [Presence] in Serum or Plasma by Immunoassay [facility] Comment on above: Expected: 12/18/2023 , Expires: 03/18/2024 Start: 12-18-2023 End: 12-17-2024 NUCHAL TRANSLUCENCY WHI NUCHAL TRANSLUCENCY WHI Anc Imaging Routine Encounter for supervision of high risk in first trimester, antepartum 10 weeks gestation of Expected: 12/18/2023, Expires: 12/17/2024 [facility] Comment on above: Expected: 12/18/2023 , Expires: 12/17/2024 Start: 12-18-2023 End: 12-17-2024 OBSTETRIC ULTRASOUND WHI OBSTETRIC ULTRASOUND WHI Anc Imaging Routine with uncertain dates in first trimester Expected: 12/18/2023, Expires: 12/17/2024 [facility] Comment on above: Expected: 12/18/2023 , Expires: 12/17/2024 Start: 12-18-2023 End: 03-18-2024 RUBELLA IGG ANTIBODY [facility] Comment on above: Expected: 12/18/2023 , Expires: 03/18/2024 Start: 12-18-2023 End: 03-18-2024 SYPHILIS TREPONEMAL W/REFLEX [facility] Work Phone: Comment on above: Expected: 12/18/2023 , Expires: 03/18/2024 Start: 12-18-2023 End: 03-18-2024 TYPE + SCREEN [facility] Comment on above: Expected: 12/18/2023 , Expires: 03/18/2024 Start: 10-26-2023 COVID-19 Vaccine ( season) COVID-19 Vaccine ( season) [facility] Start: 10-26-2023 Influenza vaccination Influenza Vacc ine (#1) [facility] Start: 02-24-2023 Depression Assessment Depression Ass essment [facility] Start: 01-06-2023 [facility] Start: 12-21-2022 Smpl repair scalp/neck/ax/genit/trunk 2.6-7.5cm RPR S/N/AX/GEN/TRNK2.6-7.5CM [facility] Start: 10-25-2022 Influenza vaccination Influenza Vacc ine (#1) [facility] Start: 02-24-2022 Depression Assessment Depression Ass essment [facility] Start: 12-26-2020 Pap Testing Pap Testing [facility] Start: 2018 DTaP/Tdap/Td Vaccine s (1 - Tdap) DTaP/Tdap/Td Vaccines (1 - Tdap) [facility] Start: 2017 Screening for malign ant neoplasm of cervix [facility] Start: 07-10-2015 Hepatitis B Vaccine (1 of 3 - 19+ 3-dose series) Hepatitis B Vaccine (1 of 3 - 19+ 3-dose series) [facility] Start: 07-10-2015 Hepatitis B Vaccines (1 of 3 - 19+ 3-dose series) Hepatitis B Vaccines (1 of 3 - 19+ 3-dose series) [facility] Start: 07-10-2015 Urine microalbumin profile DTaP,Tdap,Td Vaccine (1 - Tdap) [facility] Start: 2014 Anxiety Screening Anxiety Screening [facility] Start: 2014 Depression Screening Depression Scre ening [facility] Start: 2014 Hepatitis C Screening Hepatitis C [facility] Start: 2014 Hepatitis C screening Hepatitis C [facility] Start: 2010 Peds To Adult Transi tion Annual Assessment Peds To Adult Transition Annual Assessment [facility] Start: 2009 Varicella vaccination Varicell a Vaccines (1 of 2 - 13+ 2-dose series) [facility] Start: 2008 Peds To Adult Transi tion Initial Discussion Peds To Adult Transition Initial Discussion [facility] Start: 2005 HPV Vaccine (1 - 2-d ose series) HPV Vaccine (1 - 2-dose series) [facility] Start: 1997 MMR Vaccines (1 of 1 - Standard series) MMR Vaccines (1 of 1 - Standard series) [facility] Start: 01-09-1997 Covid-19 Vaccine (#1) Covid-19 Vacci ne (#1) [facility] Start: 1996 Hepatitis B Vaccine (1 of 3 - 3-dose series) Hepatitis B Vaccine (1 of 3 - 3-dose series) [facility] Start: 1996 HIV screening HIV Screening [facility] Start: 1996 Lipid panel Lipid Panel [facility] Start: 1996 Yearly Adult Physical Yearly Adult P hysical [facility] Bacteria identified in Urine by Culture URINE CULTURE Microbiology Routine with uncertain dates in first trimester 12/18/2023 2:29 PM EDT [facility] Chlamydia trachomatis+Neisseria gonorrhoeae DNA [Presence] in Unspecified specimen by SHELTON with probe detection GONORRHEA/CHLAMYDIA NAAT Lab Routine Encounter for gynecological examination (general) (routine) without abnormal findings Screening for cervical cancer Encounter for screening for human papillomavirus (HPV) Screen for STD (sexually transmitted disease) 01/09/2023 2:31 PM [employer] [facility] Work Phone: Chlamydia trachomatis+Neisseria gonorrhoeae DNA [Presence] in Unspecified specimen by SHELTON with probe detection GONORRHEA/CHLAMYDIA NAAT Lab Routine with uncertain dates in first trimester 12/18/2023 2:29 PM EDT [facility] Chlamydia trachomatis+Neisseria gonorrhoeae DNA [Presence] in Unspecified specimen by SHELTON with probe detection GONORRHEA/CHLAMYDIA NAAT Lab Routine Encounter for supervision of high risk in first trimester, antepartum Chlamydia infection affecting in first trimester Condyloma acuminata of vulva during in first trimester ASCUS with positive high risk HPV cervical History of vacuum extraction assisted delivery 16 weeks gestation of 02/02/2024 3:14 PM [facility] Work Phone: COLPOSCOPY COLPOSCOPY Proce dures Routine ASCUS with positive high risk HPV cervical Ordered: 01/27/2023 [facility] Work Phone: Comment on above: Ordered: 01/27/2023 COLPOSCOPY COLPOSCOPY Proce dures Routine ASCUS with positive high risk HPV cervical Ordered: 03/05/2023 [facility] Work Phone: Comment on above: Ordered: 03/05/2023 End: 02-06-2024 Extra Urine Cage Tube [facility] Work Phone: Comment on above: Once for 1 Occurrenc es starting 02/06/2024 until 02/06/2024 PAP TEST PAP TEST Lab Rou kaya Encounter for gynecological examination (general) (routine) without abnormal findings Screening for cervical cancer Encounter for screening for human papillomavirus (HPV) Screen for STD (sexually transmitted disease) 01/09/2023 2:31 PM [employer] [facility] Work Phone: PAP TEST PAP TEST Lab Rou kaya with uncertain dates in first trimester Screening for cervical cancer 12/18/2023 2:29 PM EDT [facility] Patient Education [facility] Work Phone: Patient referral [facility] Work Phone: ROUTINE, GR OUP B STREPTOCOCCUS BY PCR ROUTINE, GROUP B STREPTOCOCCUS BY PCR Microbiology Routine 36 weeks gestation of ([facility]) 06/21/2024 4:35 PM EDT [facility] Work Phone: End: 02-06-2024 Urinalysis complete W Reflex Culture panel - Urine [facility] Service Area Work Phone: Comment on above: Once (Lab) for 1 Occ urrences starting 02/06/2024 until 02/06/2024 URINE OB DIP B/O URINE OB DIP B/ O Lab Routine Supervision of high risk in third trimester ([facility]) History of vacuum extraction assisted delivery 37 weeks gestation of ([facility]) Ordered: 06/29/2024 [facility] Work Phone: Comment on above: Ordered: 06/29/2024 [facility] Immunizations Immunization Date Immunization Notes Care Provider Renato dumont 12-14-2015 influenza, injectable,quadrivalent , preservative free, pediatric [facility] 12-14-2015 influenza virus vaccine, unspecified formulation Cecilia Solorzano APRN.CNP Work Phone: [facility] Payers Date Payer Category Payer Self-pay [id number] 2023 Medicaid [id number] 2022 Private Health Insurance [id number] 2014 Medicaid [id number] 2014 Unknown [employer] [id number] 1996 Unknown [id number] 1996 Unknown [id number] Private Health Insurance [id number] Unknown SELF INS [facility] AUTO ZONE [id number] Unknown [id number] Unknown [id number] Social History Date Type Detail Facility Start: 12-21-2022 End: 01-06-2023 Tobacco smoking status ARIS Unknown if ever smoked [facility] Start: 1995 Sex Assigned At Female [facility] Start: 01-09-2023 End: 07-21-2024 Tobacco smoking status NHIS Never smoked tobacco [facility] Work Phone: Start: 01-09-2023 End: 02-06-2024 Tobacco use and exposure Smokeless tobacco non-user [facility] Work Phone: Start: 01-09-2023 End: 07-22-2024 Alcohol intake Current non-drinker of alcohol (finding) [facility] Start: 01-09-2023 End: 05-10-2024 History of Social function [facility] Start: 01-09-2023 End: 05-10-2024 Tobacco use panel [facility] National Score (1-100), lower number is lower risk 80 [facility] Start: 1995 Sex Assigned At Not on file [facility] Start: 12-04-2023 End: 02-06-2024 Exposure to SARS-CoV-2 (event) Not sure [facility] Work Phone: Start: 10-22-2023 [facility] Start: 02-06-2024 Alcoholic beverage intake Lifetime non-drinker (finding) [facility] Work Phone: Start: 05-08-2024 Sex Female (finding) [facility] NEGATED: Highlighted rowStart: YOHANNESF History of tobacco use Passive smoker [facility] Work Phone: Goals Date Patient Goal Desired Activity /State Personal health goal Clinical Notes 01-09-2016 to 07-23-2024 Note Date & Type Note Facility 07-23-2024 Hospital Discharg e instructions Additional Instructions Date of Discharge: 07/23/24 [facility] Work Phone: 07-23-2024 Progress note Note Date/Time July 23, 2024 8:52a m [facility] Medical Records Department [address] [place] [address] Progress Note 07/23/24 0851 MR#: [id number] Acct: [id number] Name: ALEXIA ALANIZ Rep #:[id number] : 1995 29 From: Luli Marcus MD PCP: Care Physician,No Primary Status :ADM IN Location: [id number] Subjective Subjective patient seen at bedside, doing well. Patient reports good pain control. lochia mild. Objective Data Objective Data Vital Signs: Vital Signs Temp Pulse Resp BP Pulse Ox O2 Del Method 98 F 77 16 133/70 H 97 Room Air 07/23/24 08:28 07/23/24 04:55 07/23/24 08:28 07/23/24 08:28 07/23/24 04:55 07/23/24 04:55 Oxygen Delivery Method Room Air Weight: 91.172 kg Body Mass Index (BMI) 34.4 Intake & Output: Intake and Output for Last 24 Hours 07/21/24 07/22/24 07/23/24 23:59 23:59 23:59 Intake Total 4015.82 / 4015.82 Output Total 1550 / 1550 900 / 900 Balance 2465.82 / 2465.82 -900 / -900 Lab / Micro Data 07/21/24 07:48 Physical Exam Narrative Abd: fundus firm. Const alert and oriented x3 General Appearance: cooperative HEENT normocephalic Neck General: normal visual inspection GI soft to palpation and non-distended GI Narrative: Fundus firm Extremity normal to inspection and no calf tenderness Skin no rashes or lesions noted Neuro oriented x3 and CN's II-XII intact bilaterally Psych mental status grossly normal Assessment & Plan Assessment/Plan (1) First degree perineal laceration: (2) Vaginal delivery: PLAN: Plan PPD# 2 , Doing well Routine care pain mgmt ambulation dc home 07/23/24 0851 <Electronically signed by Luli Edward MD> Luli Edward MD Cosigner Signature (if applicable): CC: ~ Signed ADDENDUM by Dr Luli Edward MD on 07/23/24 at 0852 Addendum time spent with patient on day of discharge <30min 07/23/24 08 <Electronically signed by Luli Ramos MD> Date _ Luli Edward MD Cosigner Signature (if applicable): Date cc: ~* Signed [facility] Work Phone: 1(127) 634-323505-30-2025 Discharge summary Author Denise Velasco [facility] Note Date/Time July 23, 2024 8:48a m [facility] Medical Records Department [address] [place] [address] Discharge Summary 07/23/2446 MR#: [id number] Acct: [id number] Name: ALEXIA ALANIZ Rep #:[id number] : 1995 29 From: Denise Velasco MD PCP: Care Physician,No Primary Status :ADM IN Location: [id number] Providers Date of Admission: 07/21/24 Date of Discharge: 07/23/24 Primary Care Physician: No Primary Care Phys Reason For Visit: VAG Diagnosis Discharge Diagnosis (1) First degree perineal laceration: Status: Acute Code(s): O70.0 - First degree perineal laceration during delivery Plan: routine PP care, likely home tomorrow (2) Vaginal delivery: Status: Acute Code(s): O80 - Encounter for full-term uncomplicated delivery Medications at Discharge Home Medications acetaminophen 500 mg tablet (Tylenol Extra Strength) 1,000 mg PO PRN PRN pain 07/21/24 vit no.95-ferrous fumarate 28 mg-folic acid 800 mcg tablet () 1tab PO DAILY 07/21/24 Hospital Course Operations - () Procedures None Summary of Care Provided Minutes Spent on Discharge: 14 Hospital Course: Patient was admitted for induction of labor due to being 41 weeks gestation on 07/21/2024. She had a vaginal delivery without complication. By day #2 she was ambulating urinating tolerating regular diet was discharged home withroutine instructions and follow-up in the office in 1-2 and 6 weeks or as needed. Weight / BMI Weight Weight: 91.172 kg Body Mass Index (BMI) 34.4 ABG / Lab / Microbiology Data 07/21/24 07:48 D/C Instructions Discharge Diet: No restrictions May resume sexual activity in: 6 weeks Call your doctor if your incision/area has: Continuous Slow Oozing, Sudden Increased Bleeding, Foul Smelling Discharge and Swelling at the incision site Call your doctor if you observe: Fever of 101 or Higher and Inability to urinate DC O2, CPAP, BIPAP Needs Home O2 Discharge instructions: No Please Follow Up With: Azalia Cm CNM When: Follow up with our office in 1-2 and 6 weeks or as needed. [phone] Meaningful Use Info Meaningful Use Meaningful Use Diagnoses (Choose all that apply): None applicable Ischemic Stroke Statin Dosing Therapy Reference: STATIN DOSE THERAPY REFERENCE: * Patients > 75 years receive moderate or high dose statin therapy. * Patients 75 years or YOUNGER should receive HIGH intensity statin dose unless contraindicated. You will be required to document reason for non-treatment if statin daily dose does not meet guidelines. HIGH DOSE STATIN THERAPY DAILY Atorvastatin > than or = to 40 mg Rosuvastatin > than or = to 20 mg Amlodipine + Atorvastatin > than or = to 2.5/40 mg Ezetimibe + Simvastatin 10/80 mg Simvastatin 80mg Discharge Plan Admission Admit Date/Time: 07/21/24 07:17 Primary Reason for Your Visit: Vaginal delivery Attending Provider: Azalia Cm Primary Care Provider: Care Physician,No Primary Discharge Orders/Prescriptions Prescriptions: Continued acetaminophen [Tylenol Extra Strength] 500 mg tablet 1,000 mg PO PRN PRN (Reason: pain) PNV cmb#95-ferrous fumarate-FA [] 28 mg iron- 800 mcg tablet 1 tab PO DAILY Discontinued aspirin 81 mg tablet,delayed release (DR/EC) 81 mg PO DAILY Referrals / Follow Up: Care Physician,No Primary [Primary Care Provider] - Disposition Disposition (needs filled in before D/C Order can be placed): Home, Self Care 07/23/24 0848 <Electronically signed by Denise Velasco MD> Cosigner Signature (if applicable): CC: Dr. Denise Velasco MD; No Primary Care Physician~ Signed [facility] Work Phone: 1(268) 606-430905-30-[address] [facility] Medical Records Department [address] [place] [address] Progress Note 07/23/2451 MR#: [id number] Acct: [id number] Name: ALEXIA ALANIZ Rep #:[id number] : 1995 29 From: Luli Marcus MD PCP: Care Physician,No Primary Status :ADM IN Location: [id number] Subjective Subjective patient seen at bedside, doing well. Patient reports good pain control. lochia mild. Objective Data Objective Data Vital Signs: Vital Signs Temp Pulse Resp BP Pulse Ox O2 Del Method 98 F 77 16 133/70 H 97 Room Air 07/23/24 08:28 07/23/24 04:55 07/23/24 08:28 07/23/24 08:28 07/23/24 04:55 07/23/24 04:55 Oxygen Delivery Method Room Air Weight: 91.172 kg Body Mass Index (BMI) 34.4 Intake & Output: Intake and Output for Last 24 Hours 07/21/24 07/22/24 07/23/24 23:59 23:59 23:59 Intake Total 4015.82 / 4015.82 Output Total 1550 / 1550 900 / 900 Balance 2465.82 / 2465.82 -900 / -900 Lab / Micro Data 07/21/24 07:48 Physical Exam Narrative Abd: fundus firm. Const alert and oriented x3 General Appearance: cooperative HEENT normocephalic Neck General: normal visual inspection GI soft to palpation and non-distended GI Narrative: Fundus firm Extremity normal to inspection and no calf tenderness Skin no rashes or lesions noted Neuro oriented x3 and CN's II-XII intact bilaterally Psych mental status grossly normal Assessment & Plan Assessment/Plan (1) First degree perineal laceration: (2) Vaginal delivery: PLAN: Plan PPD# 2 , Doing well Routine care pain mgmt ambulation dc home 07/23/24 0851 Luli Edward MD Cosigner Signature (if applicable): CC: ~ Signed ADDENDUM by Dr Luli Edward MD on 07/23/24 at 0852 Addendum time spent with patient on day of discharge <30min 07/23/24 0852 Rachel OLEA> Date _ Luli Edward MD Cosigner Signature (if applicable): Date cc: ~* Signed [facility]05-30-2025 Discharge summary [facility] Medical Records Department [address] [place] [address] Discharge Summary 07/23/2446 MR#: [id number] Acct: [id number] Name: ALEXIA ALANIZ Rep #:[id number] : 1995 29 From: Denise Velasco MD PCP: Care Physician,No Primary Status :ADM IN Location: ML292-1 Providers Date of Admission: 07/21/24 Date of Discharge: 07/23/24 Primary Care Physician: No Primary Care Phys Reason For Visit: VAG Diagnosis Discharge Diagnosis (1) First degree perineal laceration: Status: Acute Code(s): O70.0 - First degree perineal laceration during delivery Plan: routine PP care, likely home tomorrow (2) Vaginal delivery: Status: Acute Code(s): O80 - Encounter for full-term uncomplicated delivery Medications at Discharge Home Medications acetaminophen 500 mg tablet (Tylenol Extra Strength) 1,000 mg PO PRN PRN pain 07/21/24 vit no.95-ferrous fumarate 28 mg-folic acid 800 mcg tablet () 1tab PO DAILY 07/21/24 Hospital Course Operations - () Procedures None Summary of Care Provided Minutes Spent on Discharge: 14 Hospital Course: Patient was admitted for induction of labor due to being 41 weeks gestation on 07/21/2024. She had avaginal delivery without complication. By day #2 she was ambulating urinating toleratingregular diet was discharged home withroutine instructions and follow-up in the office in 1-2 and 6 weeks or as needed. Weight / BMI Weight Weight: 91.172 kg Body Mass Index (BMI) 34.4 ABG / Lab / Microbiology Data 07/21/24 07:48 D/C Instructions Discharge Diet: No restrictions May resume sexual activity in: 6 weeks Call your doctor if your incision/area has: Continuous Slow Oozing, Sudden Increased Bleeding, FoulSmelling Discharge and Swelling at the incision site Call your doctor if you observe: Fever of 101 or Higher and Inability to urinate DC O2, CPAP, BIPAP Needs Home O2 Discharge instructions: No Please Follow Up With: Azalai Cm CNM When: Follow up with our office in 1-2 and 6 weeks or as needed. [phone] Meaningful Use Info Meaningful Use Meaningful Use Diagnoses (Choose all that apply): None applicable Ischemic Stroke Statin Dosing Therapy Reference: STATIN DOSE THERAPY REFERENCE: * Patients > 75 years receive moderate or high dose statin therapy. * Patients 75 years or YOUNGER should receive HIGH intensity statin dose unless contraindicated. You will be required to document reason for non-treatment if statin daily dose does not meet guidelines. HIGH DOSE STATIN THERAPY DAILY Atorvastatin > than or = to 40 mg Rosuvastatin > than or = to 20 mg Amlodipine + Atorvastatin > than or = to 2.5/40 mg Ezetimibe + Simvastatin 10/80 mg Simvastatin 80mg Discharge Plan Admission Admit Date/Time: 07/21/24 07:17 Primary Reason for Your Visit: Vaginal delivery Attending Provider: Azalia Cm Primary Care Provider: Care Physician,No Primary Discharge Orders/Prescriptions Prescriptions: Continued acetaminophen [Tylenol Extra Strength] 500 mg tablet 1,000 mg PO PRN PRN (Reason: pain) PNV cmb#95-ferrous fumarate-FA [] 28 mg iron- 800 mcg tablet 1 tab PO DAILY Discontinued aspirin 81 mg tablet,delayed release (DR/EC) 81 mg PO DAILY Referrals / Follow Up: Care Physician,No Primary [Primary Care Provider] - Disposition Disposition (needs filled in before D/C Order can be placed): Home, Self Care 07/23/24 0848 Cosigner Signature (if applicable): CC: Dr. Denise Velasco MD; No Primary Care Physician~ Signed [facility]05-30-2025 [facility] Medical Records Department [address] [place] [address] Discharge Summary 07/23/2446 MR#: [id number] Acct: [id number] Name: ALEXIA ALANIZ Rep #: [id number] : 1995 From: Denise Velasco MD PCP: Care Physician,No Primary Status:ADM IN Location: [address] Providers Date of Admission: 07/21/24 Date of Discharge: 07/23/24 Primary Care Physician: No Primary Care Phys Reason For Visit: VAG Diagnosis Discharge Diagnosis (1) First degree perineal laceration: Status: Acute Code(s): O70.0 - First degree perineal laceration during delivery Plan: routine PP care, likely home tomorrow (2) Vaginal delivery: Status: Acute Code(s): O80 - Encounter for full-term uncomplicated delivery Medications at Discharge Home Medications acetaminophen 500 mg tablet (Tylenol Extra Strength) 1,000 mg PO PRN PRN pain 07/21/24 vit no.95-ferrous fumarate 28 mg-folic acid 800 mcg tablet () 1 tab PO DAILY 07/21/24 Hospital Course Operations - () Procedures None Summary of Care Provided Minutes Spent on Discharge: 14 Hospital Course: Patient was admitted for induction of labor due to being 41 weeks gestation on 07/21/2024. She had a vaginal delivery without complication. By day #2 she was ambulating urinating tolerating regular diet was discharged home with routine instructions and follow-up in the office in 1-2 and 6 weeks or as needed. Weight / BMI Weight Weight: 91.172 kg Body Mass Index (BMI) 34.4 ABG / Lab / Microbiology Data 07/21/24 07:48 D/C Instructions Discharge Diet: No restrictions May resume sexual activity in: 6 weeks Call your doctor if your incision/area has: Continuous Slow Oozing, Sudden Increased Bleeding, Foul Smelling Discharge and Swelling at the incision site Call your doctor if you observe: Fever of 101 or Higher and Inability to urinate DC O2, CPAP, BIPAP Needs Home O2 Discharge instructions: No Please Follow Up With: Azalia Cm CNM When: Follow up with our office in 1-2 and 6 weeks or as needed. [phone] Meaningful Use Info Meaningful Use Meaningful Use Diagnoses (Choose all that apply): None applicable Ischemic Stroke Statin Dosing Therapy Reference: STATIN DOSE THERAPY REFERENCE: * Patients > 75 years receive moderate or high dose statin therapy. * Patients 75 years or YOUNGER should receive HIGH intensity statin dose unless contraindicated. You will be required to document reason for non-treatment if statin daily dose does not meet guidelines. HIGH DOSE STATIN THERAPY DAILY Atorvastatin > than or = to 40 mg Rosuvastatin > than or = to 20 mg Amlodipine + Atorvastatin > than or = to 2.5/40 mg Ezetimibe + Simvastatin 10/80 mg Simvastatin 80mg Discharge Plan Admission Admit Date/Time: 07/21/24 07:17 Primary Reason for Your Visit: Vaginal delivery Attending Provider: Azalia Cm Primary Care Provider: Care Physician,No Primary Discharge Orders/Prescriptions Prescriptions: Continued acetaminophen [Tylenol Extra Strength] 500 mg tablet 1,000 mg PO PRN PRN (Reason: pain) PNV cmb#95-ferrous fumarate-FA [] 28 mg iron- 800 mcg tablet 1 tab PO DAILY Discontinued aspirin 81 mg tablet,delayed release (DR/EC) 81 mg PO DAILY Referrals / Follow Up: Care Physician,No Primary [Primary Care Provider] - Disposition Disposition (needs filled in before D/C Order can be placed): Home, Self Care 07/23/24 0848 Cosigner Signature (if applicable): CC: Dr. Denise Velasco MD; No Primary Care Physician [facility] Progress note Author Denise Velasco [facility] Note Date/Time July 22, 2024 8:51a m [facility] Medical Records Department [address] [place] [address] Progress Note 07/22/24 0850 MR#: [id number] Acct: [id number] Name: ALEXIA ALANIZ Rep #:[id number] : 1995 29 From: Denise Velasco MD PCP: Care Physician,No Primary Status :ADM IN [facility] Note some cramping pain. Average lochia. No other c/o Physical Exam Const alert and no apparent distress Narrative: Fundus firm, below umbilicus. Assessment & Plan Assessment/Plan (1) First degree perineal laceration: PLAN: routine PP care, likely home tomorrow (2) Vaginal delivery: 07/22/24 0851 <Electronically signed by Denise Velasco MD> Denise Velasco MD Cosigner Signature (if applicable): CC: ~ Signed [facility] Work Phone: 1(868) 211-343605-29-2025 NoteHNO ID: [id number] Author: CODIE JOSHI RN Service: ? Author Type: Registered Nurse Type: Progress Notes Filed: 07/22/2024 08:58 Note Text: Patient delivered via at [facility] on 07/21/24 per Azalia Cm CNM . See OB Outcome note. [facility] History of Present illness Narrative* Codie Joshi RN - 07/22/2024 8:55 AM EDT Patient delivered via at [facility] on 07/21/24 per Azalia Cm CNM . See OB Outcome note. Codie Joshi RN documented in [facility] encounter[facility] Progress note [facility] Medical Records Department [address] [place] [address] Progress Note 07/22/24 0850 MR#: [id number] Acct: [id number] Name: VEVERKA,ALEXIA FORTUNE Rep #:[id number] : 1995 29 From: Denise Velasco MD PCP: Care Physician,No Primary Status :ADM IN Location: NA305-0 Progress Note some cramping pain. Average lochia. No other c/o Physical Exam Const alert and no apparent distress Narrative: Fundus firm, below umbilicus. Assessment & Plan Assessment/Plan (1) First degree perineal laceration: PLAN: routine PP care, likely home tomorrow (2) Vaginal delivery: 07/22/24 0851 Denise Velasco MD Cosigner Signature (if applicable): CC: ~ Signed [facility]05-28-2025 Procedure note [facility] Medical Records Department [address] [place] [address] OB Vaginal Delivery 07/21/241954 MR#: [id number] Acct: [id number] Name: GEORGIAALANAALEXIA MARIN EDVIKA Rep #:[id number] : 1995 29 From: Azalia BURGESS PCP: Care Physician,No Primary Status :ADM IN Location: FR066-7 Assessment & Plan (1) Vaginal delivery: (2) First degree perineal laceration: Maternal Data Information SAMREEN Calculator Estimated Delivery Date Method Current WG Current Estimate 07/14/24 Manual 41w 0d Vaginal Delivery Maternal Presentation Maternal Presentation: Medically Indicated Induction Type of Induction: Pitocin and Nolan Bulb Vaginal Delivery Information Procedure Performed: Spontaneous Vaginal Delivery Date of Procedure: 07/21/24 Pre-Procedure Diagnosis: Induction of labor, 41 weeks Post-Procedure Diagnosis: , first degree perineal laceration Type of anesthesia: Epidural Estimated Blood Loss: 350ml Time of Delivery: 19:25 Findings Description of procedure: Progressed to complete with urge to push. Epidural for pain management. of viable female over first degree perineal laceation. APGARS 8,9 respectively. head delivered with body immediately forthcoming. Placed onmaternal abdomen, strong cry. Mouth and nares suctioned for secretions. Pitocin started for active 3rd stage management. Cord doubly clamped and cut by FOB after pulsations ceased, delayed cord clamping. Placenta delivered intact via morrison, 3 vessel cord intact. Perineum inspected and revealed first degree perineal laceration. Repaired with 3.0 vicryl rapide and epidural Fundus firm and hemostasis achieved. EBL 350ml. Mom and baby stable, planning to breastfeed.Family bonding well. notified of delivery. Presentation: Vertex Amniotic Membrane Rupture Type: Artificial Amniotic Fluid Description: Clear Placental Delivery Description: Spontaneous Placenta Disposition: Other (patient taking home with her) Specimen collected: No Cord Vessel Description: 3 Vessels Cord Entanglement: None A Gender: Female (1 minute): 8 (5 minute): 9 Delayed Cord Clamping: Yes Cloth Inspector emergency room clerk: No Post Vaginal Deli Medications given after delivery: IV Pitocin Episiotomy Description: None Laceration: Perineal Extension/lac and 1st degree Complication Complications: No 07/21/241958 Cosigner Signature (if applicable): CC: BISMARK Cm; No Primary Care Physician~ Signed [facility]05-28-2025 History and physical note Author Azalia Cm [facility] Note Date/Time July 21, 2024 8:41a m 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 Presents for medically necessary induction of labor for postdates. 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 Home Medications ?Medication ?Instructions ?Recorded ?Last Taken ?Type aspirin 81 mg tablet,delayed 81 mg PO DAILY prophylati c 05/08/24 07/20/24 History release acetaminophen 500 mg tablet 1,000 mg PO PRN PRN pain 0 07/21/24 07/20/24 History (Tylenol Extra Strength) vit no.95-ferrous 1 tab PO DAILY 07/20/24 History fumarate 28 mg-folic acid 800 mcg tablet () Allergy/AdvReac Type Severity Reaction Status Date / Time No Known Allergies Allergy Verified 07/21/24 07:40 Surgical History (Updated 07/21/24 @ 08:40 by Azalia Cm CNM) History of tonsillectomy Social History Smoking Status: Never smoker History Elective abortions Hx Para 1 Spontaneous abortions Hx # Term Pregnancies Ectopic pregnancies Hx # Pregnancies Multiple births # of living children NST FHR Rate Baby A Baseline: 155 Variability:: Moderate Accelerations:: 15 x 15 Decelerations:: Variable FHR Category:: Category II Uterine Activity:: Irregular ROS Constitutional Constitutional: Reports systems reviewed and no addt'l complaints, except as documented; Denies headache(s) Eyes Eyes: Denies acute decrease in peripheral vision, blurry vision or change in vision ENT HEENT: Reports systems reviewed and no addt'l complaints, except as documented Cardiovascular Cardiovascular: Denies chest pain or dizziness Respiratory/Chest Respiratory/Chest: Denies cough, dyspnea, dyspnea on exertion, shortness of breath at rest or shortness of breath with exertion Gastrointestinal Gastrointestinal: Denies abdominal pain, diarrhea, nausea or vomiting Genitourinary Genitourinary: Denies abdominal discomfort Musculoskeletal Musculoskeletal: Denies limited range of motion Integumentary Integumentary: Reports systems reviewed and no addt'l complaints, except as documented Neurologic Neurologic: Reports systems reviewed and no addt'l complaints, except as documented Psychiatric Psychiatric: Reports systems reviewed and no addt'l complaints, except as documented Endocrine Endocrinology: Reports systems reviewed and no addt'l complaints, except as documented Hematologic/Lymphatic Hematologic/Lymphatic: Reports systems reviewed and no addt'l complaints, exceptas documented Allergic/Immunologic Allergic/Immunologic: Reports systems reviewed and no addt'l complaints, except as documented Vital Signs Vital Signs Vital Signs: 07/21/24 07:33 07/21/24 07:33 07/21/24 07:33 Temperature Temperature Source Pulse Rate 125 H Respiratory Rate 16 Blood Pressure 137/71 H BP Systolic 137 BP Diastolic 71 Pulse Ox 07/21/24 07:33 07/21/24 07:33 07/21/24 07:33 Temperature 97.8 F Temperature Source Temporal Pulse Rate Respiratory Rate Blood Pressure BP Systolic BP Diastolic Pulse Ox 99 Weight Weight: 201 lb Body Mass Index (BMI) 34.4 Physical Exam Const alert and oriented x3 General Appearance: cooperative Orientation / Consciousness: awake, oriented to person, oriented to place and oriented to time Exam Limitations: no limitations HEENT normocephalic Head and Scalp: normal to inspection, normocephalic and atraumatic Face and Sinus: normal facial exam Eyes General Eye: normal appearance of both eyes Neck full ROM Chest Chest: symmetrical chest wall rise Resp normal respiratory effort and normal air movement Auscultation: clear to auscultation bilaterally Cardio regular rate, regular rhythm, S1 normal heart sound, S2 normal heart sound, no murmurs, no rub, no gallops and no clicks GI normal to inspection, nondistended, normoactive bowel sounds and non-tender appearance of the vagina normal Bladder / Kidney Exam: no CVA tenderness Manual OB Exam: estimated gestational size appropriate, presentation cephalic, dilated 2cm, effaced 60%, station -3 and other nolan catheter insertedover stylus through cervix, 30ml NS instilled. Tolerated procedure well. Back/Spine normal ROM Extremity normal to inspection and full ROM Skin no rashes or lesions noted Neuro moves all extremities Sensorium / Orientation: awake, alert and oriented to person Motor Exam: clonus absent Deep Tendon Reflexes: Rt Patellar (L4): 2+ and Lt Patellar (L4): 2+ Labs Labs Labs: Blood Type AB POSITIVE Antibody Screen NEGATIVE Hct 42.1 % (37-47) Hgb 14.6 g/dL (12.0-15.0) Syphilis Total Ab Pending Rhogam given: No GBS negative RPR nonreactive GC/CT negative Rubella Immune HBsAG negative HepC negative HIV negative AB positive 1hr GCT negative Assessment & Plan (1) Encounter for induction of labor: (2) Post-dates : (3) 41 weeks gestation of : (4) History of chlamydia: COMMENT: 12/17/24-negative (5) History of vacuum extraction assisted delivery: PLAN: Plan 1) Admit to labor and delivery 2) Routine labs 3) Continuous EFM 4) Pain management upon request 5) Nolan for cervical ripening and pitocin 6) Dr. Marcus [facility] physician and notified of patient status, above assessment, and plan. 07/21/24 0841 <Electronically signed by Azalia Cm CNM> Cosigner Signature (if applicable): CC: BISMARK Cm; No Primary Care Physician~ Signed [facility] Work Phone: 1(109) 490-731305-28-2025 Evaluation note* Diagnosis Onset Date Resolution Status Admit Date 41 weeks gestation of acut e July 21, 2024 7:17am Encounter for induction of labor acu te July 21, 2024 7:17am First degree perineal laceration acu te July 21, 2024 7:17am History of chlamydia acute July 21, 2024 7:17am History of vacuum extraction assisted delivery acute July 21, 2024 7:17am Post-dates acute July 21, 2024 7:17am Vaginal delivery acute June 7:17am [facility] Work Phone: [phone]) 211-491405-28-2025 History and physical note [facility] Medical Records Department [address] [place] [id number] 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 Presents for medically necessary induction of labor for postdates. 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 Home Medications ?Medication ?Instructions ?Recorded ?Last Taken ?Type aspirin 81 mg tablet,delayed 81 mg PO DAILY prophylati c 05/08/24 07/20/24 History release acetaminophen 500 mg tablet 1,000 mg PO PRN PRN pain 0 07/21/24 07/20/24 History (Tylenol Extra Strength) vit no.95-ferrous 1 tab PO DAILY 07/20/24 History fumarate 28 mg-folic acid 800 mcg tablet () Allergy/AdvReac Type Severity Reaction Status Date / Time No Known Allergies Allergy Verified 07/21/24 07:40 Surgical History (Updated 07/21/24 @ 08:40 by Azalia Cm CNM) History of tonsillectomy Social History Smoking Status: Never smoker History Elective abortions Hx Para 1 Spontaneous abortions Hx # Term Pregnancies Ectopic pregnancies Hx # Pregnancies Multiple births # of living children NST FHR Rate Baby A Baseline: 155 Variability:: Moderate Accelerations:: 15 x 15 Decelerations:: Variable FHR Category:: Category II Uterine Activity:: Irregular ROS Constitutional Constitutional: Reports systems reviewed and no addt'l complaints, except as documented; Denies headache(s) Eyes Eyes: Denies acute decrease in peripheral vision, blurry vision or change in vision ENT HEENT: Reports systems reviewed and no addt'l complaints, except as documented Cardiovascular Cardiovascular: Denies chest pain or dizziness Respiratory/Chest Respiratory/Chest: Denies cough, dyspnea, dyspnea on exertion, shortness of breath at rest or shortness of breath with exertion Gastrointestinal Gastrointestinal: Denies abdominal pain, diarrhea, nausea or vomiting Genitourinary Genitourinary: Denies abdominal discomfort Musculoskeletal Musculoskeletal: Denies limited range of motion Integumentary Integumentary: Reports systems reviewed and no addt'l complaints, except as documented Neurologic Neurologic: Reports systems reviewed and no addt'l complaints, except as documented Psychiatric Psychiatric: Reports systems reviewed and no addt'l complaints, except as documented Endocrine Endocrinology: Reports systems reviewed and no addt'l complaints, except as documented Hematologic/Lymphatic Hematologic/Lymphatic: Reports systems reviewed and no addt'l complaints, exceptas documented Allergic/Immunologic Allergic/Immunologic: Reports systems reviewed and no addt'l complaints, except as documented Vital Signs Vital Signs Vital Signs: 07/21/24 07:33 07/21/24 07:33 07/21/24 07:33 Temperature Temperature Source Pulse Rate 125 H Respiratory Rate 16 Blood Pressure 137/71 H BP Systolic 137 BP Diastolic 71 Pulse Ox 07/21/24 07:33 07/21/24 07:33 07/21/24 07:33 Temperature 97.8 F Temperature Source Temporal Pulse Rate Respiratory Rate Blood Pressure BP Systolic BP Diastolic Pulse Ox 99 Weight Weight: 201 lb Body Mass Index (BMI) 34.4 Physical Exam Const alert and oriented x3 General Appearance: cooperative Orientation / Consciousness: awake, oriented to person, oriented to place and oriented to time Exam Limitations: no limitations HEENT normocephalic Head and Scalp: normal to inspection, normocephalic and atraumatic Face and Sinus: normal facial exam Eyes General Eye: normal appearance of both eyes Neck full ROM Chest Chest: symmetrical chest wall rise Resp normal respiratory effort and normal air movement Auscultation: clear to auscultation bilaterally Cardio regular rate, regular rhythm, S1 normal heart sound, S2 normal heart sound, no murmurs, no rub, no gallops and no clicks GI normal to inspection, nondistended, normoactive bowel sounds and non-tender appearance of the vagina normal Bladder / Kidney Exam: no CVA tenderness Manual OB Exam: estimated gestational size appropriate, presentation cephalic, dilated 2cm, effaced 60%, station -3 and other nolan catheter insertedover stylus through cervix, 30ml NS instilled. Tolerated procedure well. Back/Spine normal ROM Extremity normal to inspection and full ROM Skin no rashes or lesions noted Neuro moves all extremities Sensorium / Orientation: awake, alert and oriented to person Motor Exam: clonus absent Deep Tendon Reflexes: Rt Patellar (L4): 2+ and Lt Patellar (L4): 2+ Labs Labs Labs: Blood Type AB POSITIVE Antibody Screen NEGATIVE Hct 42.1 % (37-47) Hgb 14.6 g/dL (12.0-15.0) Syphilis Total Ab Pending Rhogam given: No GBS negative RPR nonreactive GC/CT negative Rubella Immune HBsAG negative HepC negative HIV negative AB positive 1hr GCT negative Assessment & Plan (1) Encounter for induction of labor: (2) Post-dates : (3) 41 weeks gestation of : (4) History of chlamydia: COMMENT: 12/17/24-negative (5) History of vacuum extraction assisted delivery: PLAN: Plan 1) Admit to labor and delivery 2) Routine labs 3) Continuous EFM 4) Pain management upon request 5) Nolan for cervical ripening and pitocin 6) Dr. Marcus [facility] physician and notified of patient status, above assessment, and plan. 07/21/24 0841 Cosigner Signature (if applicable): CC: BISMARK Cm; No Primary Care Physician~ Signed [facility]05-27-2025 Miscellaneous Notes* Quick Notes - Azalia Cm APRN.CNM - 07/20/2024 11:15 AM EDT SANDHYA-S: Alexia Alaniz is a 29 year old female who presents at 40w6d with SAMREEN:07/14/2024, by Last Menstrual Period for a routine visit. Denies headache, visual changes, chest pain, shortness of breath, vaginal bleeding, leakage of fluid, or dysuria. Feeling well, no complaints. O: See flow sheet Gen: No apparent distress Abd: Gravid, nontender Membranes swept upon request, consent given after r/b/a reviewed SENSITIVE EXAMINATION CONSENT: The sensitive examination was discussed with the Patient or Patient's Authorized Smart Energy Specialist. Asapplicable, any other physician, advance practice provider, medical student, or other health professional student that will be observing or involved in the sensitive examination for educational or training purposes was discussed with the Patient or Authorized Smart Energy Specialist. The Patient or Authorized Smart Energy Specialist has agreed to proceed with the sensitive examination. ASSESSMENT/PLAN: 1. Supervision of high risk in third trimester -Continue PNV -Continue ASA -GBS negative -IOL tomorrow at 0700 2. 40 weeks gestation of 3. History of vacuum extraction assisted delivery 4. Chlamydia infection affecting in first trimester -Negative 02/16 Labor instructions reviewed and when to call RTO for PP visit Azalia Cm APRN.CNM [facility] Progress note* Quick Notes - Azalia Cm APRN.CNM - 07/20/2024 11:15 AM EDT SANDHYA-S: Alexia Alaniz is a 29 year old female who presents at 40w6d with SAMREEN:07/14/2024, by Last Menstrual Period for a routine visit. Denies headache, visual changes, chest pain, shortness of breath, vaginal bleeding, leakage of fluid, or dysuria. Feeling well, no complaints. O: See flow sheet Gen: No apparent distress Abd: Gravid, nontender Membranes swept upon request, consent given after r/b/a reviewed SENSITIVE EXAMINATION CONSENT: The sensitive examination was discussed with the Patient or Patient's Authorized Smart Energy Specialist. Asapplicable, any other physician, advance practice provider, medical student, or other health professional student that will be observing or involved in the sensitive examination for educational or training purposes was discussed with the Patient or Authorized Smart Energy Specialist. The Patient or Authorized Smart Energy Specialist has agreed to proceed with the sensitive examination. ASSESSMENT/PLAN: 1. Supervision of high risk in third trimester -Continue PNV -Continue ASA -GBS negative -IOL tomorrow at 0700 2. 40 weeks gestation of 3. History of vacuum extraction assisted delivery 4. Chlamydia infection affecting in first trimester -Negative 02/16 Labor instructions reviewed and when to call RTO for PP visit Azalia Cm APRN.CNM [facility]05-19-2025 Progress note* Quick Notes - Ronald Anton MD - 07/12/2024 1:51 PM EDT SW- No ctx, vb, lof. Good FM PE: Gen- NAD, well appearing Abd- Soft, gravid, NT See flowsheet A/p 39 wk gestation - Discussed r/b/a IOL and consent signed for induction at 41 weeks. Desires physiologic onset of labor and induction at 41 weeks if still - RTO 1 wk Ronald Anton DO [facility] Work Phone: 1(313) 195-557005-19-2025 Miscellaneous Notes* Quick Notes - Ronald Anton MD - 07/12/2024 1:51 PM EDT SW- No ctx, vb, lof. Good FM PE: Gen- NAD, well appearing Abd- Soft, gravid, NT See flowsheet A/p 39 wk gestation - Discussed r/b/a IOL and consent signed for induction at 41 weeks. Desires physiologic onset of labor and induction at 41 weeks if still - RTO 1 wk Ronald Anton DO documented in this encounterOur [facility] Instructions* Patient Instructions* Laura Stiles MA - 07/12/2024 1:32 PM EDT SEQUENTIAL SCREENINGS [facility] offers sequential screenings for women who are interested in screenings for chromosomal abnormalities and certain defects during a . The sequential screen combinesultrasound and blood tests to determine the risk of chromosomal abnormalities, including Down's Syndrome (Trisomy 21) and Trisomy 18, as well as open neural tube defects including spina bifida. Ultrasound examination is performed between 11 weeks and 13 weeks gestational age. Blood tests are drawn after the ultrasound and again later in the between 15 and 21 weeks gestational age. Please let your physician know if you are interested in this testing. It will require an appointment withour brain wave technician. This is not an ultrasound performed by a physician in our office during a routine visit. SIGNS AND SYMPTOMS OF LABOR 1. Contractions every 10 minutes or more often 2. Clear, pink, or brownish fluid (water) leaking from vagina 3. Feeling that baby is pushing down, pressure 4. Low, dull backache 5. Cramps that feel like a period 6. Cramps with or without diarrhea If you notice any of the above symptoms, contact our office at [phone] and ask to speak with anurse. After hours, you can call doctors registry at [phone] OR call [facility] at [phone] ask to have the doctor carbon capture power plant manager paged. If you consider this an emergency, dial 9-- or go to your nearest emergency department. NEED HELP? Are you dealing with a violent or abusive relationship? Are you a victim of rape or sexual assult? Call [facility] ([place]) 24 hour Crisis Hotline: 177.961.3401 or 847-028-9235. MANUAL Your Guide to a Healthy manual is now on-line. Visit [email or web address]/[email or web address] to download your free copy documented in this encounterOur [facility] Progress note* Quick Notes - Roxie Smith APRN.CNM - 07/05/2024 1:29 PM EDT S: Alexia Hummel is a 28 year old female who presents at 38 weeks gestation for a routine visit. Positive movements. Denies any cramps or contractions. Denies headache, visual changes, chest pain, shortness of breath, vaginal bleeding, leakage of fluid, or dysuria. Feeling well, no complaints. Requesting CE today for baseline. O: See flow sheet Gen: No apparent distress Abd: Gravid, nontender CE- closed/thick/posterior ASSESSMENT/PLAN: 1. 38 weeks gestation of 2. Supervision of high risk in third trimester - URINE OB DIP B/O - GBS negative - Desires physiological onset of labor - Recommended eating dates/ drinking red raspberry leaf tea/ position changes - Labor precautions reviewed and when to call office - RTO 1 week Roxie Smith APRN.CNM [facility]05-12-2025 Miscellaneous Notes* Quick Notes - Roxie Smith APRN.CNM - 07/05/2024 1:29 PM EDT S: Alexia Hummel is a 28 year old female who presents at 38 weeks gestation for a routine visit. Positive movements. Denies any cramps or contractions. Denies headache, visual changes, chest pain, shortness of breath, vaginal bleeding, leakage of fluid, or dysuria. Feeling well, no complaints. Requesting CE today for baseline. O: See flow sheet Gen: No apparent distress Abd: Gravid, nontender CE- closed/thick/posterior ASSESSMENT/PLAN: 1. 38 weeks gestation of 2. Supervision of high risk in third trimester - URINE OB DIP B/O - GBS negative - Desires physiological onset of labor - Recommended eating dates/ drinking red raspberry leaf tea/ position changes - Labor precautions reviewed and when to call office - RTO 1 week Roxie Smith APRN.CNM documented in this encounterOur [facility] Instructions* Patient Instructions* Roxie Smith APRN.CNM - 07/05/2024 12:59 PM EDT Images from the original note were not included. Preparing for labor: Eat dates to promote spontaneous labor! Has an oxytocin-like effect on the body, leading to increased sensitivity of the uterus. Stimulates uterine contractions. Reduces hemorrhage the way oxytocin does. Date fruit contains saturated and unsaturated fatty acids such as oleic, linoleic, and linolenic acids, which are involved in saving and supplying energy and construction of prostaglandins. In addition, serotonin, tannin, and calcium in date fruit contribute to the contraction of smooth muscles of the uterus. Date fruit also has a laxative effect, which stimulates uterine contractions. Six dates per day is the magic number--provided that you re eating smaller deglet noor dates. Deglet noor dates are about 1 inch long. Medjool dates can be up to 2 inches long. If you re eating medjool dates, you only need about 3 dates to reach the 75 grams recommended in the studies. Not sure which type of date you have in your refrigerator? It s probably a deglet noor. How to Eat Dates During Dates are a healthy and delicious snack, so how can you add them to your diet? Add dates during in this awesome oatmeal recipe. Add dates to replace sugar in your favorite recipe or to eduardo your homemade almond milk. Use dates and nuts to make an easy pie crust in the cook cashier food prep. Add soaked dates to homemade nut butter for a sweet treat. Add dates to eduardo homemade salad dressing. Add dates during easily with these yummy (paleo friendly) bars made from dates. What Is Red Raspberry [place] Tea? Red raspberry leaf tea comes from the leaves of the red raspberry plant. This herbal tea has been used for centuries to support respiratory, digestive and uterine health, particularly during and childbearing years. While usually known as a female herb, red raspberry leaf tea can also helpsupport the prostate and various stomach ailments in children. How It Can Help and Red raspberry leaf tea can help to make labor faster and reduce complications and interventions during . One study found that women who consumed RRL tea regularly are less likely to go overdue or give prematurely. These women may also be less likely to receive an artificial rupture of their membranes or require a section, forceps, or vacuum than the women in the control group. Red raspberry leaf has many other benefits to , , and too. How Much Red Raspberry [place] Tea to Drink? With your doctor or head miller s approval, start with 1 cup of red raspberry leaf tea per day startingin the second trimester. Watch for any uterine cramping or other reactions. If you don t experienceany, you can talk to your healthcare provider about increasing to 2 cups per day. Again, watch for any uterine cramping. If you notice any, cut back on your dosage for two weeks and try again. Keep in mind, some moms have irritable uteruses and can only drink red raspberry leaf tea once theyreach their due date because of uterine cramping. Is Red Raspberry [place] Tea the Same as Raspberry [place] Tea? How About Plain Old Raspberry Tea? Sometimes. You really need to look at the ingredients to be sure. Note that there is no difference between red raspberry leaf and raspberry leaf. [employer] or [employer] Raspberry [place] Tea are two good brands. The red raspberry leaf teas that we recommend are 100% red raspberry leaf. Other teas labeled as raspberry are often a blend of rosehips, hibiscus, raspberry leaves, and raspberry flavor. So they maynot be as effective. The teas to avoid are raspberry-flavored herbal teas, which may have ingredients like hibiscus, orin hips, apples, elderberries, natural and artificial raspberry flavors. Teas like this don t containraspberry leaf at all and thus won t offer any of the potential benefits of RRLT outlined in this article. [employer] www.[employer] I named this 'circuit' after my friend Matilda Hendrix, who shared and discussed it with me when I was working with a client whose labor seemed to be stalled out and no longer progressing... This circuit is useful to help get the baby lined up, ideally, in the Left Occiput Anterior (KRISTOFER) Position, both before labor begins and when some corrections need to be done during labor. Prenatally, this position set can help to rotate a baby. As a natural method of induction, this can help get things going if baby just needed a gentle nudge of position to set things off. To the best of my knowledge, this group of positions will not hurt a baby that is already lined up correctly. - Anna Quiles Before you Begin..... This circuit takes at least 90 minutes to complete so clear your schedule and make mental preparations so you can relax in your environment. The second step requires a lot of pillows so gather them up before beginning Before starting, you should empty your bladder! Have a nice drink nearby, and make sure it has a straw! If you are having contractions, this circuit should bedone through contractions, try not to change positions between steps Step One: Open-knee Chest Stay in this position for 30 minutes, start in cat/cow, then drop your chest as low as you can to the bed or the floor and your bottom as high as you can. Knees should be fairly wide apart, and the angle between the torso/thighs should be wider than 90 degrees. Wiggle around, prop with lots of pillows and use this time to get totally relaxed.This position allows the baby to scoot out of the pelvis a bit and gives them room to rotate, shift their head position, etc. If the person finds it helpful,careful positioning with a rebozo under the belly, with gentle tension from a support person behindcan help maintain this position for the full 30minutes. Step Two: Exaggerated Left Side Lying Roll to your left side, bringing your top leg as high as possible and keeping your bottom leg straight. Roll forward as much as possible,again using a lot of pillows. Sink into the bed and relax somemore. If you fall asleep, that's totally okay and you can stay there! If not, stay here for at least another half an hour. Try and get your top right leg up towards your head and get as rolled over onto your belly as much as possible. If you repeat the circuit during labor, try alternating left and right sides. We know the photo the left is actually right side... just flip the image in your head. Step Three: Moving and Lunges Lunge, walk stairs facing sideways, 2 at a time, (have a lacquer spray booth operator downstairs of you!), take a walk outside with one foot on the curb and the other on the street, sit on a ball and hula- anything that's upright and putting your pelvis in open, asymmetrical positions. Spend at least 30 minutes doing this one as well to give your baby a chance to move down. If you are lunging or stair or curb walking, you should lunge/walk/go up stairs in the direction that feels better to you. The thomas with the lunge is that the toes of the higher leg and mom's belly button should be at right angles. Do not lunge over your knee, that closes the pelvis. Matilda Hendrix: Circuit Creator - www.[employer] Anna Quiles CD, BDT (SAMIR), LCCE, FACCE: Supporting Content - www.Semm[employer] Blane Bennett: Photography - www.[employer]Pal.[employer] Mckenzie Grubbs CD/CDT (ERIKA): Print and Surgery Specialist - www.[employer] www.[employer] SIGNS AND SYMPTOMS OF LABOR 1. Contractions every 10 minutes or more often 2. Clear, pink, or brownish fluid (water) leaking from vagina 3. Feeling that baby is pushing down, pressure 4. Low, dull backache 5. Cramps that feel like a period 6. Cramps with or without diarrhea If you notice any of the above symptoms, contact our office at [phone] and ask to speak with anurse. After hours, you can call doctors registry at [phone] OR call [facility] at [phone] ask to have the doctor carbon capture power plant manager paged. If you consider this an emergency, dial or go to your nearest emergency department. NEED HELP? Are you dealing with a violent or abusive relationship? Are you a victim of rape or sexual assult? Call [facility] ([place]) 24 hour Crisis Hotline: 344.100.1404 or 679-863-8230. MANUAL Your Guide to a Healthy manual is now on-line. Visit [email or web address]/HealthyPregnancyGuide to download your free copy documented in this encounterOur [facility] NoteHNO ID: [id number] Author: LAURA COLE MA Service: ? Author Type: Tobacco Cutter Type: Progress Notes Filed: 07/02/2024 14:55 Note Text: POPULATION HEALTH NAVIGATION OUTREACH Action/FYI Called and spoke with pt and states she will outreach back via . Reason for Outreach Medicaid OB/Peds Care Gaps due: N/A Patient Contacted: Spoke to patient/parent/or legal guardian Patient identified by name and : Yes Medicaid OB/Peds actions taken: Patient declined: Patient requested call back from navigator/ will call navigator back Navigation Signature: Laura Norwood MA July 02, 2024 2:53 [facility]05-09-2025 History of Present illness Narrative* Laura Cole MA - 07/02/2024 2:53 PM EDT POPULATION HEALTH NAVIGATION OUTREACH Action/FYI Called and spoke with pt and states she will outreach back via . Reason for Outreach Medicaid OB/Peds Care Gaps due: N/A Patient Contacted: Spoke to patient/parent/or legal guardian Patient identified by name and : Yes Medicaid OB/Peds actions taken: Patient declined: Patient requested call back from navigator/ will call navigator back Navigation Signature: Laura Norwood MA July 02, 2024 2:53 PM documented in this encounterOur [facility] Of [facility]25 NotePatient Outreach (NETNAV) ALEXIA HUMMEL ([id number]) 1995 F Date Time Provider Department 07/02/24 LAURA COLE During your visit today, we recorded the following information about you: Laura Cole MA 07/02/2024 2:55 PM Signed POPULATION HEALTH NAVIGATION OUTREACH Action/FYI Called and spoke with pt and states she will outreach back via . Reason for Outreach Medicaid OB/Peds Care Gaps due: N/A Patient Contacted: Spoke to patient/parent/or legal guardian Patient identified by name and : Yes Medicaid OB/Peds actions taken: Patient declined: Patient requested call back from navigator/ will call navigator back Navigation Signature: Laura Norwood MA July 02, 2024 2:53 PM Allergies As of Date: 07/02/2024 (No Known Allergies) Date Reviewed: 06/29/2024 Reviewed by: Nia Gillis MA - Fully Assessed Reason for Visit: Population Health Navigation Outreach [3910] Cmt: Ob/peds Prescriptions as of 07/02/2024 - aspirin, enteric coated (ECOTRIN LOW STRENGTH) 81 mg EC tablet Take 1 tablet by mouth once daily. - Vpclurob-Pr-Gvn-Fe-FA tab Take 1 tablet by mouth once daily. Problem List As Of Date 07/02/2024 Noted Resolved Patient requested diagnostic testing [Z01.89] 12/28/2015 02/07/2016 Encounter for supervision of normal first pregn*01/09/2016 09/30/2016 History of vacuum extraction assisted delivery *12/18/2023 ASCUS with positive high risk HPV cervical [R87*12/18/2023 Supervision of high risk in second tr*12/18/2023 Vaginal bleeding affecting early [O20*12/18/2023 02/02/2024 Condyloma acuminata of vulva during i*12/18/2023 Family history of autism [Z81.8] 12/18/2023 Chlamydia infection affecting in firs*12/19/2023 Encounter Status:Closed by LAURA COLE on 07/02/24[facility] 06-29-2024 Progress note* Quick Notes - Azalia Cm APRN.CNM - 06/29/2024 4:55 PM EDT SANDHYA-S: Alexia Hummel is a 28 year old female who presents at 07/14/2024, by Last Menstrual Period for a routine visit. Denies headache, visual changes, chest pain, shortness of breath, vaginal bleeding, leakage of fluid, or dysuria. Feeling well, no complaints. O: See flow sheet Gen: No apparent distress Abd: Gravid, nontender ASSESSMENT/PLAN: 1. Supervision of high risk in third trimester -Continue PNV -Continue ASA -GBS negative -Reviewed concerns about Vitamin K and recommendations for treatment. Information provided and questions answered. 2. 37 weeks gestation of 3. History of vacuum extraction assisted delivery 4. Chlamydia infection affecting in first trimester -Negative 02/16 Labor instructions reviewed and when to call RTO in one week Azalia Cm APRN.CNM [facility]05-06-[facility] Miscellaneous Notes* Quick Notes - Azalia Cm APRN.CNM - 06/29/2024 4:55 PM EDT SANDHYA-S: Alexia Hummel is a 28 year old female who presents at 07/14/2024, by Last Menstrual Period for a routine visit. Denies headache, visual changes, chest pain, shortness of breath, vaginal bleeding, leakage of fluid, or dysuria. Feeling well, no complaints. O: See flow sheet Gen: No apparent distress Abd: Gravid, nontender ASSESSMENT/PLAN: 1. Supervision of high risk in third trimester -Continue PNV -Continue ASA -GBS negative -Reviewed concerns about Vitamin K and recommendations for treatment. Information provided and questions answered. 2. 37 weeks gestation of 3. History of vacuum extraction assisted delivery 4. Chlamydia infection affecting in first trimester -Negative 02/16 Labor instructions reviewed and when to call RTO in one week Azaila Cm APRN.CNM documented in this encounterOur Lady Of [facility]05-[facility]-2025 Instructions* Patient Instructions* Azalia Cm APRN.CNM - 06/29/2024 4:09 PM EDT [email or web address] https://www.cdc.gov/voyprok-k-rpvpnjnlak/faq/index.html SIGNS AND SYMPTOMS OF LABOR 1. Contractions every 10 minutes or more often 2. Clear, pink, or brownish fluid (water) leaking from vagina 3. Feeling that baby is pushing down, pressure 4. Low, dull backache 5. Cramps that feel like a period 6. Cramps with or without diarrhea If you notice any of the above symptoms, contact our office at [phone] and ask to speak with anurse. After hours, you can call doctors registry at [phone] OR call [facility] at [phone] ask to have the doctor carbon capture power plant manager paged. If you consider this an emergency, dial 3-1-0 or go to your nearest emergency department. NEED HELP? Are you dealing with a violent or abusive relationship? Are you a victim of rape or sexual assult? Call [facility] ([facility] 24 hour Crisis Hotline: 832.762.6572 or 907-849-4351. MANUAL Your Guide to a Healthy manual is now on-line. Visit [email or web address]/HealthyPregnancyGuide to download your free copy documented in this encounterOur [facility] Of [facility]04-28-2025 Progress note* Quick Notes - Suzy Paiz MD - 06/21/2024 4:47 PM EDT S: Alexia Hummel is a 28 year old female who presents at 07/14/2024, by Last Menstrual Period for a routine visit. Denies headache, visual changes, chest pain, shortness of breath, vaginal bleeding,leakage of fluid, or dysuria. Feeling well, no complaints. Good movement, No contractions O: See flow sheet Gen: No apparent distress Abd: Gravid, nontender VTX on US GBS completed today ASSESSMENT/PLAN: 1. 36 weeks gestation of (HCC) - ICD9: V22.2, ICD10: Z3A.36 (primary diagnosis) - URINE OB DIP B/O - ROUTINE, GROUP B STREPTOCOCCUS BY PCR 2. Supervision of high risk in third trimester ([facility]) - ICD9: V23.9, ICD10: O09.93 URINE OB DIP B/O 3. History of vacuum extraction assisted delivery - ICD9: V13.29, ICD10: Z87.59 - URINE OB DIP B/O Suzy Paiz MD [facility]04-28-2025 Miscellaneous Notes* Quick Notes - Suzy Paiz MD - 06/21/2024 4:47 PM EDT S: Alexia Hummel is a 28 year old female who presents at 07/14/2024, by Last Menstrual Period for a routine visit. Denies headache, visual changes, chest pain, shortness of breath, vaginal bleeding,leakage of fluid, or dysuria. Feeling well, no complaints. Good movement, No contractions O: See flow sheet Gen: No apparent distress Abd: Gravid, nontender VTX on US GBS completed today ASSESSMENT/PLAN: 1. 36 weeks gestation of (HCC) - ICD9: V22.2, ICD10: Z3A.36 (primary diagnosis) - URINE OB DIP B/O - ROUTINE, GROUP B STREPTOCOCCUS BY PCR 2. Supervision of high risk in third trimester (HCC) - ICD9: V23.9, ICD10: O09.93 URINE OB DIP B/O 3. History of vacuum extraction assisted delivery - ICD9: V13.29, ICD10: Z87.59 - URINE OB DIP B/O Suzy Paiz MD documented in this encounterOur [facility] Of [facility]04-28-2025 Instructions* Patient Instructions* Halle Larose LPN - 06/21/2024 12:48 PM EDT SEQUENTIAL SCREENINGS The [facility] offers sequential screenings for women who are interested in screenings for chromosomal abnormalities and certain defects during a . The sequential screen combinesultrasound and blood tests to determine the risk of chromosomal abnormalities, including Down's Syndrome (Trisomy 21) and Trisomy 18, as well as open neural tube defects including spina bifida. Ultrasound examination is performed between 11 weeks and 13 weeks gestational age. Blood tests are drawn after the ultrasound and again later in the between 15 and 21 weeks gestational age. Please let your physician know if you are interested in this testing. It will require an appointment withour brain wave technician. This is not an ultrasound performed by a physician in our office during a routine visit. SIGNS AND SYMPTOMS OF LABOR 1. Contractions every 10 minutes or more often 2. Clear, pink, or brownish fluid (water) leaking from vagina 3. Feeling that baby is pushing down, pressure 4. Low, dull backache 5. Cramps that feel like a period 6. Cramps with or without diarrhea If you notice any of the above symptoms, contact our office at [phone] and ask to speak with anurse. After hours, you can call doctors registry at [phone] OR call [facility] at [phone] ask to have the doctor carbon capture power plant manager paged. If you consider this an emergency, dial 9-1-1 or go to your nearest emergency department. NEED HELP? Are you dealing with a violent or abusive relationship? Are you a victim of rape or sexual assult? Call [facility] ([place]) 24 hour Crisis Hotline: 604.318.8400 or 791-360-1526. MANUAL Your Guide to a Healthy manual is now on-line. Visit [email or web address]/HealthyPregnancyGuide to download your free copy documented in this encounterOur Lady Of [facility]04-[facility]-2025 Progress note* Quick Notes - Roxie Smith APRN.CNM - 06/07/2024 1:44 PM EDT S: Alexia Hummel is a 28 year old female who presents at 34 weeks gestation for a routine visit. Positive movements. Denies any cramps or contractions. Denies headache, visual changes, chest pain, shortness of breath, vaginal bleeding, leakage of fluid, or dysuria. Feeling well, no complaints. O: See flow sheet Gen: No apparent distress Abd: Gravid, nontender ASSESSMENT/PLAN: 1. Supervision of high risk in third trimester 2. History of vacuum extraction assisted delivery 3. 34 weeks gestation of - Continue ASA/ vitamins daily - PTL precautions reviewed - RTO 2 weeks for MELONY with GBS/TAUS Roxie Smith APRN.CNM [facility] Work Phone: 1(434) 417-284104-14-2025 Miscellaneous Notes* Quick Notes - Roxie Smith APRN.CNM - 06/07/2024 1:44 PM EDT S: Alexia Hummel is a 28 year old female who presents at 34 weeks gestation for a routine visit. Positive movements. Denies any cramps or contractions. Denies headache, visual changes, chest pain, shortness of breath, vaginal bleeding, leakage of fluid, or dysuria. Feeling well, no complaints. O: See flow sheet Gen: No apparent distress Abd: Gravid, nontender ASSESSMENT/PLAN: 1. Supervision of high risk in third trimester 2. History of vacuum extraction assisted delivery 3. 34 weeks gestation of - Continue ASA/ vitamins daily - PTL precautions reviewed - RTO 2 weeks for MELONY with GBS/TAUS Roxie Smith APRN.CNM documented in this encounterOur Lady Of [facility]04-14-2025 Instructions* Patient Instructions* Boogie Tipton MA - 06/07/2024 12:47 PM EDT SEQUENTIAL SCREENINGS The [facility] offers sequential screenings for women who are interested in screenings for chromosomal abnormalities and certain defects during a . The sequential screen combinesultrasound and blood tests to determine the risk of chromosomal abnormalities, including Down's Syndrome (Trisomy 21) and Trisomy 18, as well as open neural tube defects including spina bifida. Ultrasound examination is performed between 11 weeks and 13 weeks gestational age. Blood tests are drawn after the ultrasound and again later in the between 15 and 21 weeks gestational age. Please let your physician know if you are interested in this testing. It will require an appointment withour brain wave technician. This is not an ultrasound performed by a physician in our office during a routine visit. SIGNS AND SYMPTOMS OF LABOR 1. Contractions every 10 minutes or more often 2. Clear, pink, or brownish fluid (water) leaking from vagina 3. Feeling that baby is pushing down, pressure 4. Low, dull backache 5. Cramps that feel like a period 6. Cramps with or without diarrhea If you notice any of the above symptoms, contact our office at [phone] and ask to speak with anurse. After hours, you can call doctors registry at [phone] OR call [facility] at [phone] ask to have the doctor carbon capture power plant manager paged. If you consider this an emergency, dial 9--1 or go to your nearest emergency department. NEED HELP? Are you dealing with a violent or abusive relationship? Are you a victim of rape or sexual assult? Call [facility] ([place]) 24 hour Crisis Hotline: 340.661.2821 or 805-866-0725. MANUAL Your Guide to a Healthy manual is now on-line. Visit [email or web address]/HealthyPregnancyGuide to download your free copy documented in this encounterOur Lady Of [facility]03-31-2025 Progress note* Quick Notes - Suzy Paiz MD - 05/24/2024 4:47 PM EDT S: Alexia Hummel is a 28 year old female who presents at 07/14/2024, by Last Menstrual Period for a routine visit. Denies headache, visual changes, chest pain, shortness of breath, vaginal bleeding,leakage of fluid, or dysuria. Feeling well, no complaints. Good movement, No contractions O: See flow sheet Gen: No apparent distress Abd: Gravid, nontender Repeat GC at 36 weeks ASSESSMENT/PLAN: 1. Supervision of high risk in third trimester - ICD9: V23.9, ICD10: O09.93 (primary diagnosis) 2. History of vacuum extraction assisted delivery - ICD9: V13.29, ICD10: Z87.59 3. 32 weeks gestation of - ICD9: V22.2, ICD10: Z3A.32 Suzy Paiz MD [facility]03-31-2025 Miscellaneous Notes* Quick Notes - Suzy Paiz MD - 05/24/2024 4:47 PM EDT S: Alexia Hummel is a 28 year old female who presents at 07/14/2024, by Last Menstrual Period for a routine visit. Denies headache, visual changes, chest pain, shortness of breath, vaginal bleeding,leakage of fluid, or dysuria. Feeling well, no complaints. Good movement, No contractions O: See flow sheet Gen: No apparent distress Abd: Gravid, nontender Repeat GC at 36 weeks ASSESSMENT/PLAN: 1. Supervision of high risk in third trimester - ICD9: V23.9, ICD10: O09.93 (primary diagnosis) 2. History of vacuum extraction assisted delivery - ICD9: V13.29, ICD10: Z87.59 3. 32 weeks gestation of - ICD9: V22.2, ICD10: Z3A.32 Suzy Paiz MD documented in this encounterOur Lady Of [facility]03-[facility]-2025 Instructions* Patient Instructions* Boogie Tipton MA - 05/24/2024 1:06 PM EDT SEQUENTIAL SCREENINGS The [facility] offers sequential screenings for women who are interested in screenings for chromosomal abnormalities and certain defects during a . The sequential screen combinesultrasound and blood tests to determine the risk of chromosomal abnormalities, including Down's Syndrome (Trisomy 21) and Trisomy 18, as well as open neural tube defects including spina bifida. Ultrasound examination is performed between 11 weeks and 13 weeks gestational age. Blood tests are drawn after the ultrasound and again later in the between 15 and 21 weeks gestational age. Please let your physician know if you are interested in this testing. It will require an appointment withour brain wave technician. This is not an ultrasound performed by a physician in our office during a routine visit. SIGNS AND SYMPTOMS OF LABOR 1. Contractions every 10 minutes or more often 2. Clear, pink, or brownish fluid (water) leaking from vagina 3. Feeling that baby is pushing down, pressure 4. Low, dull backache 5. Cramps that feel like a period 6. Cramps with or without diarrhea If you notice any of the above symptoms, contact our office at [phone] and ask to speak with anurse. After hours, you can call doctors registry at [phone] OR call [facility] at [phone] ask to have the doctor carbon capture power plant manager paged. If you consider this an emergency, dial 9-1-7 or go to your nearest emergency department. NEED HELP? Are you dealing with a violent or abusive relationship? Are you a victim of rape or sexual assult? Call [facility] ([facility] 24 hour Crisis Hotline: 755.578.1896 or 487-318-9857. MANUAL Your Guide to a Healthy manual is now on-line. Visit [email or web address]/HealthyPregnancyGuide to download your free copy documented in this encounterOur Lady Of [facility]03-[facility]-20[facility] Progress note* Quick Notes - Azalia Cm APRN.CNM - 05/10/2024 1:18 PM EDT SANDHYA-S: Alexia Hummel is a 28 year old female who presents at 30w5d with SAMREEN:07/14/2024, by Last Menstrual Period for a routine visit. Denies headache, visual changes, chest pain, shortness of breath,vaginal bleeding, leakage of fluid, or dysuria. Feeling well, no complaints. O: See flow sheet Gen: No apparent distress Abd: Gravid, nontender ASSESSMENT/PLAN: 1. Encounter for supervision of high risk in first trimester, antepartum -Continue PNV and ASA -Anatomy US next visit -1hr GCT and CBC negative 2. Chlamydia infection affecting in first trimester -Treatment completed in November. Partner treated as well -MARITZA 02/02/24 negative -Repeat testing at 36wk 3. Condyloma acuminata of vulva during in first trimester 4. ASCUS with positive high risk HPV cervical -Colpo completed on 03/05/23 , repeat pap smear in one year 5. History of vacuum extraction assisted delivery 6. 30 weeks gestation of PTL precautions reviewed and when to call RTO in 2 wk Azalia Cm APRN.CNM [facility]03-17-2025 Miscellaneous Notes* Quick Notes - Azalia Cm APRN.CNM - 05/10/2024 1:18 PM EDT SANDHYA-S: Alexia Hummel is a 28 year old female who presents at 30w5d with SAMREEN:07/14/2024, by Last Menstrual Period for a routine visit. Denies headache, visual changes, chest pain, shortness of breath,vaginal bleeding, leakage of fluid, or dysuria. Feeling well, no complaints. O: See flow sheet Gen: No apparent distress Abd: Gravid, nontender ASSESSMENT/PLAN: 1. Encounter for supervision of high risk in first trimester, antepartum -Continue PNV and ASA -Anatomy US next visit -1hr GCT and CBC negative 2. Chlamydia infection affecting in first trimester -Treatment completed in November. Partner treated as well -MARITZA 02/02/24 negative -Repeat testing at 36wk 3. Condyloma acuminata of vulva during in first trimester 4. ASCUS with positive high risk HPV cervical -Colpo completed on 03/05/23 , repeat pap smear in one year 5. History of vacuum extraction assisted delivery 6. 30 weeks gestation of PTL precautions reviewed and when to call RTO in 2 wk Azalia Cm APRN.CNM documented in this encounterOur [facility] Instructions* Patient Instructions* Nadege Morin LPN - 05/10/2024 1:02 PM EDT SEQUENTIAL SCREENINGS [facility] offers sequential screenings for women who are interested in screenings for chromosomal abnormalities and certain defects during a . The sequential screen combinesultrasound and blood tests to determine the risk of chromosomal abnormalities, including Down's Syndrome (Trisomy 21) and Trisomy 18, as well as open neural tube defects including spina bifida. Ultrasound examination is performed between 11 weeks and 13 weeks gestational age. Blood tests are drawn after the ultrasound and again later in the between 15 and 21 weeks gestational age. Please let your physician know if you are interested in this testing. It will require an appointment withour brain wave technician. This is not an ultrasound performed by a physician in our office during a routine visit. SIGNS AND SYMPTOMS OF LABOR 1. Contractions every 10 minutes or more often 2. Clear, pink, or brownish fluid (water) leaking from vagina 3. Feeling that baby is pushing down, pressure 4. Low, dull backache 5. Cramps that feel like a period 6. Cramps with or without diarrhea If you notice any of the above symptoms, contact our office at [phone] and ask to speak with anurse. After hours, you can call [facility] registry at [phone] OR call [facility] at [phone] ask to have the doctor carbon capture power plant manager paged. If you consider this an emergency, dial 9-1-1 or go to your nearest emergency department. NEED HELP? Are you dealing with a violent or abusive relationship? Are you a victim of rape or sexual assult? Call [facility] ([place]) 24 hour Crisis Hotline: 977.286.9723 or 987-043-1681. MANUAL Your Guide to a Healthy manual is now on-line. Visit [email or web address] to download your free copy documented in this encounterOur [facility] Telephone encounter Note * Telephone Encounter - Zeinab Casillas RN - 04/30/2024 4:10 PM EST Order signed and faxed. Zeinab Casillas RN [facility]03-07-2025 Miscellaneous Notes* Telephone Encounter - Zeinab Casillas RN - 04/30/2024 4:10 PM EST Order signed and faxed. Zeinab Casillas RN * Telephone Encounter - Zeinab Casillas RN - 04/30/2024 2:11 PM EST Breast pump request received from [address] Order to provider to sign. Zeinab Casillas RN documented in this encounterOur Lady Of [facility]03-07-2025 Telephone encounter Note * Telephone Encounter - Zeinab Casillas RN - 04/30/2024 2:11 PM EST Breast pump request received from [address] Order to provider to sign. Zeinab Casillas RN [facility]03-04-2025 Telephone encounter Note* Telephone Encounter - Fred Lai RN - 04/27/2024 9:48 AM EST 3rd risk assessment form submitted 04/27/24 Fred Lai RN [facility]03-04-2025 Miscellaneous Notes* Telephone Encounter - Fred Lai RN - 04/27/2024 9:48 AM EST 3rd risk assessment form submitted 04/27/24 Fred Lai RN documented in this encounterOur Lady Of [facility]03-03-2025 Progress note* Quick Notes - Suzy Paiz MD - 04/26/2024 1:19 PM EST S: Alexia Hummel is a 28 year old female who presents at 07/14/2024, by Last Menstrual Period for a routine visit. Denies headache, visual changes, chest pain, shortness of breath, vaginal bleeding,leakage of fluid, or dysuria. Feeling well, no complaints. Good movement, No contractions O: See flow sheet Gen: No apparent distress Abd: Gravid, nontender GCT today Declined LARC at delivery but wants paragard PP Declined TDAP ASSESSMENT/PLAN: 1. Supervision of high risk in third trimester - ICD9: V23.9, ICD10: O09.93 (primary diagnosis) Reviewed kick counts 2. 28 weeks gestation of - ICD9: V22.2, ICD10: Z3A.28 Suzy Paiz MD [facility]03-03-2025 Miscellaneous Notes* Quick Notes - Suzy Paiz MD - 04/26/2024 1:19 PM EST S: Alexia Hummel is a 28 year old female who presents at 07/14/2024, by Last Menstrual Period for a routine visit. Denies headache, visual changes, chest pain, shortness of breath, vaginal bleeding,leakage of fluid, or dysuria. Feeling well, no complaints. Good movement, No contractions O: See flow sheet Gen: No apparent distress Abd: Gravid, nontender GCT today Declined LARC at delivery but wants paragard PP Declined TDAP ASSESSMENT/PLAN: 1. Supervision of high risk in third trimester - ICD9: V23.9, ICD10: O09.93 (primary diagnosis) Reviewed kick counts 2. 28 weeks gestation of - ICD9: V22.2, ICD10: Z3A.28 Suzy Paiz MD documented in this encounterOur [facility]02-03-2025 Progress note* Quick Notes - Azalia Cm APRN.CNM - 03/29/2024 4:16 PM EST SANDHYA-S: Alexia Hummel is a 28 year old female who presents at 24w5d with SAMREEN:07/14/2024, by Last Menstrual Period for a routine visit. Denies headache, visual changes, chest pain, shortness of breath,vaginal bleeding, leakage of fluid, or dysuria. Feeling well, no complaints. O: See flow sheet Gen: No apparent distress Abd: Gravid, nontender ASSESSMENT/PLAN: 1. Supervision of high risk in second trimester - GESTATIONAL GLUCOSE SCREEN, 1-HOUR, 50 GRAM, NON-FASTING - SYPHILIS TREPONEMAL W/REFLEX - ANEMIA REFLEX PANEL 2. 24 weeks gestation of -Continue PNV and ASA 3. History of vacuum extraction assisted delivery 4. Screening for diabetes mellitus 5. Chlamydia infection affecting in first trimester -Retest at 36 wk PTL precautions reviewed and when to call RTO in 4 weeks Azalia Cm APRN.CNM [facility]02-03-2025 Miscellaneous Notes* Quick Notes - Azalia Cm APRN.CNM - 03/29/2024 4:16 PM EST SANDHYA-S: Alexia Hummel is a 28 year old female who presents at 24w5d with SAMREEN:07/14/2024, by Last Menstrual Period for a routine visit. Denies headache, visual changes, chest pain, shortness of breath,vaginal bleeding, leakage of fluid, or dysuria. Feeling well, no complaints. O: See flow sheet Gen: No apparent distress Abd: Gravid, nontender ASSESSMENT/PLAN: 1. Supervision of high risk in second trimester - GESTATIONAL GLUCOSE SCREEN, 1-HOUR, 50 GRAM, NON-FASTING - SYPHILIS TREPONEMAL W/REFLEX - ANEMIA REFLEX PANEL 2. 24 weeks gestation of -Continue PNV and ASA 3. History of vacuum extraction assisted delivery 4. Screening for diabetes mellitus 5. Chlamydia infection affecting in first trimester -Retest at 36 wk PTL precautions reviewed and when to call RTO in 4 weeks Azalia Cm APRN.CNM documented in this encounterOur Lady Of [facility]02-03-2025 Instructions* Patient Instructions* Boogie Tipton MA - 03/29/2024 2:19 PM EST SEQUENTIAL SCREENINGS [facility] offers sequential screenings for women who are interested in screenings for chromosomal abnormalities and certain defects during a . The sequential screen combinesultrasound and blood tests to determine the risk of chromosomal abnormalities, including Down's Syndrome (Trisomy 21) and Trisomy 18, as well as open neural tube defects including spina bifida. Ultrasound examination is performed between 11 weeks and 13 weeks gestational age. Blood tests are drawn after the ultrasound and again later in the between 15 and 21 weeks gestational age. Please let your physician know if you are interested in this testing. It will require an appointment withour brain wave technician. This is not an ultrasound performed by a physician in our office during a routine visit. SIGNS AND SYMPTOMS OF LABOR 1. Contractions every 10 minutes or more often 2. Clear, pink, or brownish fluid (water) leaking from vagina 3. Feeling that baby is pushing down, pressure 4. Low, dull backache 5. Cramps that feel like a period 6. Cramps with or without diarrhea If you notice any of the above symptoms, contact our office at [phone] and ask to speak with anurse. After hours, you can call doctors registry at [phone] OR call [facility] at [phone] ask to have the doctor carbon capture power plant manager paged. If you consider this an emergency, dial [phone] or go to your nearest emergency department. NEED HELP? Are you dealing with a violent or abusive relationship? Are you a victim of rape or sexual assult? Call [facility] ([place]) 24 hour Crisis Hotline: 827.326.1081 or 949-091-1669. MANUAL Your Guide to a Healthy manual is now on-line. Visit [email or web address] to download your free copy documented in this encounterOur Lady Of [facility]01-[facility]25 Telephone encounter Note * Telephone Encounter - Fred Lai RN - 03/02/2024 9:13 AM EST 2nd PRAF submitted 03/02/24 Fred Lai RN [facility]01-07-2025 Miscellaneous Notes* Telephone Encounter - Fred Lai RN - 03/02/2024 9:13 AM EST 2nd PRAF submitted 03/02/24 Fred Lai RN documented in this encounterOur Lady Of [facility]01-06-2025 Miscellaneous Notes* Quick Notes - Blane Bonner APRN.JUANITO - 03/01/2024 2:30 PM EST EH - S: Alexia Gallardo is a 28 year old female who presents at 20w5d for a routine visit. Feeling movement. Denies headache, visual changes, chest pain, shortness of breath, vaginal bleeding, leakage of fluid, or dysuria. Feeling well, no complaints. O: See flow sheet Gen: No apparent distress Abd: Gravid, nontender ASSESSMENT/PLAN: 1. Supervision of high risk in second trimester - ICD9: V23.9, ICD10: O09.92 (primary diagnosis) - Continue LDA and PNV - Declines flu vaccine 2. 20 weeks gestation of - ICD9: V22.2, ICD10: Z3A.20 - Anatomy ultrasound today, report pending - Discussed pediatricians 3. Chlamydia infection affecting in first trimester - ICD9: 647.63, 079.98, ICD10: O98.811, A74.9 - MARITZA negative 02/02/24 - Plan to rescreen at 36 weeks 4. History of vacuum extraction assisted delivery - ICD9: V13.29, ICD10: Z87.59 PTL precautions reviewed. RTO in 4 weeks or sooner as needed. Blane Bonner APRN.JUANITO documented in this encounterOur Lady Of [facility]01-06-2025 Progress note* Quick Notes - Blane Bonner APRN.CNP - 03/01/2024 2:30 PM EST EH - S: Alexia Gallardo is a 28 year old female who presents at 20w5d for a routine visit. Feeling movement. Denies headache, visual changes, chest pain, shortness of breath, vaginal bleeding, leakage of fluid, or dysuria. Feeling well, no complaints. O: See flow sheet Gen: No apparent distress Abd: Gravid, nontender ASSESSMENT/PLAN: 1. Supervision of high risk in second trimester - ICD9: V23.9, ICD10: O09.92 (primary diagnosis) - Continue LDA and PNV - Declines flu vaccine 2. 20 weeks gestation of - ICD9: V22.2, ICD10: Z3A.20 - Anatomy ultrasound today, report pending - Discussed pediatricians 3. Chlamydia infection affecting in first trimester - ICD9: 647.63, 079.98, ICD10: O98.811, A74.9 - MARITZA negative 02/02/24 - Plan to rescreen at 36 weeks 4. History of vacuum extraction assisted delivery - ICD9: V13.29, ICD10: Z87.59 PTL precautions reviewed. RTO in 4 weeks or sooner as needed. Blane Bonner APRN.RHEOSTAT ASSEMBLER [facility]01-[facility] Instructions* Patient Instructions* Nikole Azul MA - 03/01/2024 2:18 PM EST SEQUENTIAL SCREENINGS The [facility] offers sequential screenings for women who are interested in screenings for chromosomal abnormalities and certain defects during a . The sequential screen combinesultrasound and blood tests to determine the risk of chromosomal abnormalities, including Down's Syndrome (Trisomy 21) and Trisomy 18, as well as open neural tube defects including spina bifida. Ultrasound examination is performed between 11 weeks and 13 weeks gestational age. Blood tests are drawn after the ultrasound and again later in the between 15 and 21 weeks gestational age. Please let your physician know if you are interested in this testing. It will require an appointment withour brain wave technician. This is not an ultrasound performed by a physician in our office during a routine visit. SIGNS AND SYMPTOMS OF LABOR 1. Contractions every 10 minutes or more often 2. Clear, pink, or brownish fluid (water) leaking from vagina 3. Feeling that baby is pushing down, pressure 4. Low, dull backache 5. Cramps that feel like a period 6. Cramps with or without diarrhea If you notice any of the above symptoms, contact our office at [phone] and ask to speak with anurse. After hours, you can call doctors registry at [phone] OR call [facility] at [phone] ask to have the doctor carbon capture power plant manager paged. If you consider this an emergency, dial [phone] or go to your nearest emergency department. NEED HELP? Are you dealing with a violent or abusive relationship? Are you a victim of rape or sexual assult? Call [facility] ([facility] 24 hour Crisis Hotline: 973.715.7728 or 325-690-6347. MANUAL Your Guide to a Healthy manual is now on-line. Visit [email or web address] to download your free copy documented in this encounterOur Lady Of [facility]12-[facility]24 Emergency department Note * Tyrell Orozco, DO - 02/06/2024 3:52 PM EST HPI Chief Complaint Patient presents with Abdominal Pain Ongoing abd cramping that has been worse the past hour. 17 weeks . Denies vag bleeding or discharge Patient presents to the emergency department secondary to abdominal cramping. The patient states that she has been having cramping throughout her . She was told by her OB physician that if her cramping persisted she should go to the emergency room. She took nothing to help with her cramping as far as [id number]-[id number] medications. Denies dysuria, vaginal bleeding, or vaginal discharge. History provided by: Patient train starter used: No Patient History History reviewed. No pertinent past medical history. Past Surgical History: Procedure Laterality Date TONSILLECTOMY No family history on file. Social History Tobacco Use Smoking status: Never Smokeless tobacco: Never Substance Use Topics Alcohol use: Never Drug use: Never Physical Exam ED Triage Vitals [02/06/24 1602] Temperature Heart Rate Respirations BP 36.8 C (98.2 F) 90 16 116/71 Pulse Ox Temp Source Heart Rate Source Patient Position 98 % Temporal -- -- BP Location FiO2 (%) -- -- Physical Exam Vitals and nursing note reviewed. Constitutional: General: She is not in acute distress. Appearance: Normal appearance. She is normal weight. She is not ill-appearing, toxic-appearing or diaphoretic. HENT: Head: Normocephalic and atraumatic. Nose: Nose normal. No rhinorrhea. Neck: Comments: Trachea is midline Cardiovascular: Rate and Rhythm: Normal rate and regular rhythm. Heart sounds: No murmur heard. Pulmonary: Effort: Pulmonary effort is normal. Breath sounds: Normal breath sounds. No wheezing. Abdominal: General: Abdomen is flat. Bowel sounds are normal. There is no distension. Palpations: Abdomen is soft. Tenderness: There is no abdominal tenderness. There is no right CVA tenderness, left CVA tenderness, guarding or rebound. Hernia: No hernia is present. Comments: Noted palpable gravid uterus. No peritoneal signs. Bowel sounds are unremarkable Musculoskeletal: General: Normal range of motion. Cervical back: Normal range of motion. Skin: General: Skin is warm and dry. Findings: No rash. Neurological: General: No focal deficit present. Mental Status: She is alert and oriented to person, place, and time. Mental status is at baseline. Psychiatric: Mood and Affect: Mood normal. Behavior: Behavior normal. Thought Content: Thought content normal. Judgment: Judgment normal. ED Course & MDM Diagnoses as of 02/06/24 1653 Abdominal cramping complicating ([facility]) No data recorded Medical Decision Making heart tones are reassuring. Urinalysis is unremarkable. Patient was given Tylenol for her discomfort. Reassurance was given. Recommended follow-up with her OB physician and return for any otherongoing concerns. Procedure Procedures Tyrell Orozco DO 02/06/24 1609 Tyrell Orozco DO 02/06/241652 documented in this [facility] Work Phone: 1(571) 556-185312-13-2024 Physician Emergency department Note* Tyrell Orozco DO - 02/06/2024 3:52 PM EST HPI Chief Complaint Patient presents with Abdominal Pain Ongoing abd cramping that has been worse the past hour. 17 weeks . Denies vag bleeding or discharge Patient presents to the emergency department secondary to abdominal cramping. The patient states that she has been having cramping throughout her . She was told by her OB physician that if her cramping persisted she should go to the emergency room. She took nothing to help with her cramping as far as [id number]-[id number] medications. Denies dysuria, vaginal bleeding, or vaginal discharge. History provided by: Patient train starter used: No Patient History History reviewed. No pertinent past medical history. Past Surgical History: Procedure Laterality Date TONSILLECTOMY No family history on file. Social History Tobacco Use Smoking status: Never Smokeless tobacco: Never Substance Use Topics Alcohol use: Never Drug use: Never Physical Exam ED Triage Vitals [02/06/24 1602] Temperature Heart Rate Respirations BP 36.8 C (98.2 F) 90 16 116/71 Pulse Ox Temp Source Heart Rate Source Patient Position 98 % Temporal -- -- BP Location FiO2 (%) -- -- Physical Exam Vitals and nursing note reviewed. Constitutional: General: She is not in acute distress. Appearance: Normal appearance. She is normal weight. She is not ill-appearing, toxic-appearing or diaphoretic. HENT: Head: Normocephalic and atraumatic. Nose: Nose normal. No rhinorrhea. Neck: Comments: Trachea is midline Cardiovascular: Rate and Rhythm: Normal rate and regular rhythm. Heart sounds: No murmur heard. Pulmonary: Effort: Pulmonary effort is normal. Breath sounds: Normal breath sounds. No wheezing. Abdominal: General: Abdomen is flat. Bowel sounds are normal. There is no distension. Palpations: Abdomen is soft. Tenderness: There is no abdominal tenderness. There is no right CVA tenderness, left CVA tenderness, guarding or rebound. Hernia: No hernia is present. Comments: Noted palpable gravid uterus. No peritoneal signs. Bowel sounds are unremarkable Musculoskeletal: General: Normal range of motion. Cervical back: Normal range of motion. Skin: General: Skin is warm and dry. Findings: No rash. Neurological: General: No focal deficit present. Mental Status: She is alert and oriented to person, place, and time. Mental status is at baseline. Psychiatric: Mood and Affect: Mood normal. Behavior: Behavior normal. Thought Content: Thought content normal. Judgment: Judgment normal. ED Course & MDM Diagnoses as of 02/06/24 1653 Abdominal cramping complicating ([facility]) No data recorded Medical Decision Making heart tones are reassuring. Urinalysis is unremarkable. Patient was given Tylenol for her discomfort. Reassurance was given. Recommended follow-up with her OB physician and return for any otherongoing concerns. Procedure Procedures Tyrell Orozco DO 02/06/24 1609 Tyrell Orozco DO 02/06/24 1653 [facility] Work Phone: 1(173) 333-657712-09-2024 Progress note* Quick Notes - Azalia Cm APRN.CNM - 02/02/2024 1:12 PM EST SANDHYA-S: Alexia Hummel is a 28 year old female who presents at 16w5d with SAMREEN:07/14/2024, by Last Menstrual Period for a routine visit. Denies headache, visual changes, chest pain, shortness of breath,vaginal bleeding, leakage of fluid, or dysuria. Feeling well, no complaints. O: See flow sheet Gen: No apparent distress Abd: Gravid, nontender ASSESSMENT/PLAN: 1. Encounter for supervision of high risk in first trimester, antepartum -Continue PNV and ASA -Anatomy US next visit 2. Chlamydia infection affecting in first trimester -Treatment completed in November. Partner treated as well -MARITZA today 3. Condyloma acuminata of vulva during in first trimester 4. ASCUS with positive high risk HPV cervical -Colpo completed on 03/05/23 , repeat pap smear in one year 5. History of vacuum extraction assisted delivery 6. 16 weeks gestation of PTL precautions reviewed and when to call RTO in 4 weeks Azalia Cm APRN.CNM [facility]12-09-2024 Miscellaneous Notes* Quick Notes - Azalia Cm APRN.CNM - 02/02/2024 1:12 PM EST SANDHYA-S: Alexia Hummel is a 28 year old female who presents at 16w5d with SAMREEN:07/14/2024, by Last Menstrual Period for a routine visit. Denies headache, visual changes, chest pain, shortness of breath,vaginal bleeding, leakage of fluid, or dysuria. Feeling well, no complaints. O: See flow sheet Gen: No apparent distress Abd: Gravid, nontender ASSESSMENT/PLAN: 1. Encounter for supervision of high risk in first trimester, antepartum -Continue PNV and ASA -Anatomy US next visit 2. Chlamydia infection affecting in first trimester -Treatment completed in November. Partner treated as well -MARITZA today 3. Condyloma acuminata of vulva during in first trimester 4. ASCUS with positive high risk HPV cervical -Colpo completed on 03/05/23 , repeat pap smear in one year 5. History of vacuum extraction assisted delivery 6. 16 weeks gestation of PTL precautions reviewed and when to call RTO in 4 weeks Azalia Cm APRN.BISMARK documented in this encounterOur [facility]11-[facility] Telephone encounter Note * Telephone Encounter - Ronald Anton MD - 01/12/2024 3:13 PM EST Monitor symptoms and keep scheduled appointment. Call if bleeding increases, or with pain [facility] Work Phone: [phone]) 104-884811-18-2024 Miscellaneous Notes* Telephone Encounter - Ronald Anton MD - 01/12/2024 3:13 PM EST Monitor symptoms and keep scheduled appointment. Call if bleeding increases, or with pain * Telephone Encounter - Zeinab Casillas RN - 01/12/2024 12:11 PM EST Patient called back and states she ended up having an ultrasound done today at the care center. Patient states they told her that she has a hematoma. Patient denies any pain or cramping currently. Currently not having any bleeding or spotting. States spotting very minimal this morning when she wiped to use the bathroom and was dark red in color. Patient last seen in office on 01/05/24, she also had a NT ultrasound that day. Next appointment is02/02/24. Please address. Zeinab Casillas RN * Telephone Encounter - Tara Nicholas RN - 01/12/2024 11:34 AM EST Left message for patient to call office. Tara Nicholas RN documented in this encounterOur Lady Of [facility]11-[facility]-2024 Telephone encounter Note * Telephone Encounter - Zeinab Casillas RN - 01/12/2024 12:11 PM EST Patient called back and states she ended up having an ultrasound done today at the [facility] care center. Patient states they told her that she has a hematoma. Patient denies any pain or cramping currently. Currently not having any bleeding or spotting. States spotting very minimal this morning when she wiped to use the bathroom and was dark red in color. Patient last seen in office on 01/05/24, she also had a NT ultrasound that day. Next appointment is02/02/24. Please address. Zeinab Casillas RN [facility]11-18-2024 Telephone encounter Note* Telephone Encounter - Tara Nicholas RN - 01/12/2024 11:34 AM EST Left message for patient to call office. Tara Nicholas RN [facility]11-11-2024 Progress note* Quick Notes - Ronald Anton MD - 01/05/2024 3:00 PM EST SW- pt doing well. No pain, vb, lof. N/V improved. PE: Gen- NAD, well appearing See flowsheet A/p 12 wk gestation - NT today - H/o chlamydia: Her and her partner completed treatment for Chlamydia. Too early for MARITZA today. Discussed MARITZA next visit - Baby ASA - RTO 4 wks - Has anatomy US scheduled Ronald Anton DO [facility]11-11-2024 Miscellaneous Notes* Quick Notes - Ronald Anton MD - 01/05/2024 3:00 PM EST SW- pt doing well. No pain, vb, lof. N/V improved. PE: Gen- NAD, well appearing See flowsheet A/p 12 wk gestation - NT today - H/o chlamydia: Her and her partner completed treatment for Chlamydia. Too early for MARITZA today. Discussed MARITZA next visit - Baby ASA - RTO 4 wks - Has anatomy US scheduled Ronald Anton DO documented in this encounterOur [facility] Instructions* Patient Instructions* Laura Stiles MA - 01/05/2024 1:24 PM EST SEQUENTIAL SCREENINGS [facility] offers sequential screenings for women who are interested in screenings for chromosomal abnormalities and certain defects during a . The sequential screen combinesultrasound and blood tests to determine the risk of chromosomal abnormalities, including Down's Syndrome (Trisomy 21) and Trisomy 18, as well as open neural tube defects including spina bifida. Ultrasound examination is performed between 11 weeks and 13 weeks gestational age. Blood tests are drawn after the ultrasound and again later in the between 15 and 21 weeks gestational age. Please let your physician know if you are interested in this testing. It will require an appointment withour brain wave technician. This is not an ultrasound performed by a physician in our office during a routine visit. SIGNS AND SYMPTOMS OF LABOR 1. Contractions every 10 minutes or more often 2. Clear, pink, or brownish fluid (water) leaking from vagina 3. Feeling that baby is pushing down, pressure 4. Low, dull backache 5. Cramps that feel like a period 6. Cramps with or without diarrhea If you notice any of the above symptoms, contact our office at [phone] and ask to speak with anurse. After hours, you can call doctors registry at [phone] OR call [facility] at [phone] ask to have the doctor carbon capture power plant manager paged. If you consider this an emergency, dial 10-25- or go to your nearest emergency department. NEED HELP? Are you dealing with a violent or abusive relationship? Are you a victim of rape or sexual assult? Call [facility] ([facility] 24 hour Crisis Hotline: 102.740.1925 or 922-316-1144. MANUAL Your Guide to a Healthy manual is now on-line. Visit [email or web address] to download your free copy documented in this encounterOur [facility] Telephone encounter Note * Telephone Encounter - Suzy Viera RN - 12/19/2023 9:21 AM EDT Patient did state that partner has NKDA. Suzy Viera RN [facility]10-25-2024 Miscellaneous Notes* Telephone Encounter - Suzy Viera RN - 12/19/2023 9:21 AM EDT Patient did state that partner has NKDA. Suzy Viera RN * Telephone Encounter - Blane Bonner APRN.CNP - 12/19/2023 8:43 AM EDT Please ensure partner has no allergies to Doxycyline. Rx sent. Blane Bonner APRN.RHEOSTAT ASSEMBLER * Telephone Encounter - Suzy Viera RN - 12/19/2023 8:40 AM EDT Patient notified. Voiced understanding of instructions. Faxed notification to Health Department. Patient does want her partner to be treated. RX pending. Patient aware that both scripts will be in her name, but she is to take the Zithromax. Suzy Viera RN * Telephone Encounter - Suzy Viera RN - 12/19/2023 8:39 AM EDT Expedited Partner Therapy (EPT) EPT is being prescribed today to the patient s partner(s) as the following conditions have been met: The intended recipient is a sexual partner of Alexia Hummel. Alexia Hummel has been diagnosed with chlamydia. Alexia Hummel reports that sexual partner is unable or unlikely to be evaluated or treated by a health professional. EPT is being prescribed for no more than two sexual partners. Alexia Hummel's sexual partner(s) have been contacted: No The following has been relayed to Alexia Hummel: Information about the EPT medication has been provided to Alexia Hummel to share with their sexual partner(s). Recommendation that sexual partner(s) seek treatment and testing from a healthcare professional. * Telephone Encounter - Blane Bonner APRN.CNP - 12/19/2023 7:13 AM EDT Please notify patient: Culture positive for chlamydia. To treat with Azithromycin. Partner should be treated - can send EPT. No intercourse during treatment or for 7 days after. Please notify health department. Needs MARITZA in 4 weeks. Blane Bonner APRN.RHEOSTAT ASSEMBLER documented in this encounterOur [facility] Telephone encounter Note * Telephone Encounter - Fred Lai RN - 12/19/2023 8:45 AM EDT 1st risk assessment form submitted 12/19/23 Fred Lai RN [facility]10-25-2024 Miscellaneous Notes* Telephone Encounter - Fred Lai RN - 12/19/2023 8:45 AM EDT 1st risk assessment form submitted 12/19/23 Fred Lai RN documented in this encounterOur [facility] Telephone encounter Note * Telephone Encounter - Blane Bonner APRN.CNP - 12/19/2023 8:43 AM EDT Please ensure partner has no allergies to Doxycyline. Rx sent. Blane Bonner APRN.JUANITO [facility]-25-[facility] Telephone encounter Note* Telephone Encounter - Suzy Viera RN - 12/19/2023 8:40 AM EDT Patient notified. Voiced understanding of instructions. Faxed notification to Health Department. Patient does want her partner to be treated. RX pending. Patient aware that both scripts will be in her name, but she is to take the Zithromax. Suzy Viera RN [facility] Telephone encounter Note* Telephone Encounter - Suzy Viera RN - 12/19/2023 8:39 AM EDT Expedited Partner Therapy (EPT) EPT is being prescribed today to the patient s partner(s) as the following conditions have been met: The intended recipient is a sexual partner of Alexia Hummel. Alexia Hummel has been diagnosed with chlamydia. Alexia Sami Shaheed reports that sexual partner is unable or unlikely to be evaluated or treated by a health professional. EPT is being prescribed for no more than two sexual partners. Alexia Hummel's sexual partner(s) have been contacted: No The following has been relayed to Alexia Sami Shaheed: Information about the EPT medication has been provided to Alexia Hummel to share with their sexual partner(s). Recommendation that sexual partner(s) seek treatment and testing from a healthcare professional. [facility] Telephone encounter Note* Telephone Encounter - Blane Bonner APRN.CNP - 12/19/2023 7:13 AM EDT Please notify patient: Culture positive for chlamydia. To treat with Azithromycin. Partner should be treated - can send EPT. No intercourse during treatment or for 7 days after. Please notify health department. Needs MARITZA in 4 weeks. Blane Bonner APRN.CNP [facility] Instructions* Patient Instructions* Nikole Azul MA - 12/18/2023 1:31 PM EDT Please select the following link to access the [facility] Your Guide to a Healthy . [email or web address] documented in this encounterOur Lady Of [facility]10-24-2024 NoteHNO ID: [id number] Author: BLANE BONNER APRN.CNP Service: ? Author Type: Nurse Practitioner Type: Progress Notes Filed: 12/18/2023 14:15 Note Text: Postbed Stitcher offered: Patient declines. INITIAL OB ASSESSMENT HPI: Alexia Gallardo is a 28 year old White here to establish Obstetrical Care. Patient's last menstrual period was 10/08/2023. from OB Dating Form. was unplanned but accepted Complaints: Vaginal bleeding, she had light spotting she was seen in ER and was told it was normal. No spotting today. OB History T1 L1 SAB0 IAB0 Ectopic0 Multiple0 Live Births0 Previous history: Prior : never History of 4th degree laceration: No History of shoulder dystocia: No History of Hypertensive disorders including pre-eclampsia or gestational hypertension: No History of gestational diabetes: No Patient's Risk Screening for delivery: Have you had a prior morales between 20w and 36w6d? No How many pregnancies have you had before? 1 Did you have a previous baby with a GBS Infection? No Please select all that apply for any prior : N/A MEDICAL/PSYCHOSOCIAL HISTORY: History of hemorrhage or bleeding concerns: No Thyroid Disease: No History of chronic hypertension: No History of pre-existing diabetes: No ABO/RH(D) Date Value Ref Range Status 04/25/2016 AB POSTIVE Final BMI 22.96 kg/(m2) Last Pap: 01/09/2023, ASCUS History of abnormal pap: Yes Prior treatment for cervical dysplasia: none, colposcopy (No biopsies done at that appointment) Last HPV: 01/09/2023, positive History of STDs: HPV Partner History of STDs: None Did you have a partner with Herpes? No Tobacco use: No E-Cigarette/Vaping Use: No Caffeine use: no Drug use: No Alcohol use: No Multivitamin with Folic acid: No, she states she is not really taking one. Would refuse blood transfusion if medically necessary: No Social Needs: How often does this describe you? I don't have enough money to pay my bills: Never Within the past 12 months, have you worried that your food would run out before you had money to buy more? Never In the past 12 months, has lack of reliable transportation kept you from going to medical appointments or work, or from getting things needed for daily living? Never In the past 12 months, have you had any concerns about having a place to live, or about the condition or quality of your housing? Never Would you like more information on any of the following (please check all that apply)? Centering (group care classes) Social History: Do you have any history of depression, anxiety, PTSD, or other mood problems? No Do you have a history of abuse or trauma that may impact your experience? No Are you currently employed? Yes Depression/Anxiety Screening: denies symptoms of depression. OB Depression and Anxiety Screening- This Encounter (since 12/17/2023) Over the past 2 weeks have you felt down, depressed, or hopeless? Negative Over the past two weeks, have you felt little interest or pleasure in doing things?? Negative Feeling nervous, anxious or on edge 0-Not at all Not being able to stop or control worrying 0-Not al all Anxiety Pre-Screening Total (If >/= 3 additional questions will be reviewed) 0 Genetic Screening: Partner present: No Patient verbalized knowledge of partner family health history: No Do you or your partner have any personal or family history of defects not previously discussed: No Do you have history of a complicated by anomaly, genetic condition, or demise: No OB Risk Screening: Completed, no positive findings documented. 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 No current facility-administered medications for this visit. Allergies As of Date: 12/18/2023 (No Known Allergies) Fully Assessed 12/18/2023 Does patient have penicillin allergy: No REVIEW OF SYSTEMS: GENERAL: Negative for: Fever or Chills HEENT: Negative for: Headache, Impaired Vision, Ringing in Ears, Nosebleeds NECK: Negative for: Swelling, Pain, Stiffness RESPIRATORY: Negative for: Cough, Shortness of breath, Wheezing GASTROINTESTINAL: Negative for: Heartburn, Constipation, Diarrhea, Blood in stool, Vomiting MUSCULOSKELETAL: Negative for: Muscle or joint pain, stiffness, Joint swelling NEUROLOGIC/PSYCHIATRIC: Negative for: Weakness, Paralysis, Numbness, Tingling, Tremor, Anxiety, Depression, Memory loss SKIN: Negative for: Rash, Itchin (more content not included)...[facility]10-24-[facility] History of Present illness Narrative* Blane Bonner APRN.RHEOSTAT ASSEMBLER - 12/18/2023 1:30 PM EDT Postbed Stitcher offered: Patient declines. INITIAL OB ASSESSMENT HPI: Alexia Gallardo is a 28 year old White here to establish Obstetrical Care. Patient's last menstrual period was 10/08/2023. from OB Dating Form. was unplanned but accepted Complaints: Vaginal bleeding, she had light spotting she was seen in ER and was told it was normal.No spotting today. OB History T1 L1 SAB0 IAB0 Ectopic0 Multiple0 Live Births0 Previous history: Prior : never History of 4th degree laceration: No History of shoulder dystocia: No History of Hypertensive disorders including pre-eclampsia or gestational hypertension: No History of gestational diabetes: No Patient's Risk Screening for delivery: Have you had a prior morales between 20w and 36w6d? No How many pregnancies have you had before? 1 Did you have a previous baby with a GBS Infection? No Please select all that apply for any prior : N/A MEDICAL/PSYCHOSOCIAL HISTORY: History of hemorrhage or bleeding concerns: No Thyroid Disease: No History of chronic hypertension: No History of pre-existing diabetes: No ABO/RH(D) Date Value Ref Range Status 04/25/2016 AB POSTIVE Final BMI 22.96 kg/(m^2) Last Pap: 01/09/2023, ASCUS History of abnormal pap: Yes Prior treatment for cervical dysplasia: none, colposcopy (No biopsies done at that appointment) Last HPV: 01/09/2023, positive History of STDs: HPV Partner History of STDs: None Did you have a partner with Herpes? No Tobacco use: No E-Cigarette/Vaping Use: No Caffeine use: no Drug use: No Alcohol use: No Multivitamin with Folic acid: No, she states she is not really taking one. Would refuse blood transfusion if medically necessary: No Social Needs: How often does this describe you? I don't have enough money to pay my bills: Never Within the past 12 months, have you worried that your food would run out before you had money to buy more? Never In the past 12 months, has lack of reliable transportation kept you from going to medical appointments or work, or from getting things needed for daily living? Never In the past 12 months, have you had any concerns about having a place to live, or about the condition or quality of your housing? Never Would you like more information on any of the following (please check all that apply)? Centering (group care classes) Social History: Do you have any history of depression, anxiety, PTSD, or other mood problems? No Do you have a history of abuse or trauma that may impact your experience? No Are you currently employed? Yes Depression/Anxiety Screening: denies symptoms of depression. OB Depression and Anxiety Screening- This Encounter (since 12/17/2023) Over the past 2 weeks have you felt down, depressed, or hopeless? Negative Over the past two weeks, have you felt little interest or pleasure in doing things? Negative Feeling nervous, anxious or on edge 0-Not at all Not being able to stop or control worrying 0-Not al all Anxiety Pre-Screening Total (If >/= 3 additional questions will be reviewed) 0 Genetic Screening: Partner present: No Patient verbalized knowledge of partner family health history: No Do you or your partner have any personal or family history of defects not previously discussed: No Do you have history of a complicated by anomaly, genetic condition, or demise: No OB Risk Screening: Completed, no positive findings documented. 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 No current facility-administered medications for this visit. Allergies As of Date: 12/18/2023 (No Known Allergies) Fully Assessed 12/18/2023 Does patient have penicillin allergy: No REVIEW OF SYSTEMS: GENERAL: Negative for: Fever or Chills HEENT: Negative for: Headache, Impaired Vision, Ringing in Ears, Nosebleeds NECK: Negative for: Swelling, Pain, Stiffness RESPIRATORY: Negative for: Cough, Shortness of breath, Wheezing GASTROINTESTINAL: Negative for: Heartburn, Constipation, Diarrhea, Blood in stool, Vomiting MUSCULOSKELETAL: Negative for: Muscle or joint pain, stiffness, Joint swelling NEUROLOGIC/PSYCHIATRIC: Negative for: Weakness, Paralysis, Numbness, Tingling, Tremor, Anxiety, Depression, Memory loss SKIN: Negative for: Rash, Itching GENITOURINARY: Negative for: vaginal itching, vaginal discharge, hematuria or dysuria SENSITIVE EXAM: The sensitive examination was discussed with the Patient or Patient's Authorized Smart Energy Specialist. As applicable, any other physician, advance practice provider, medical student, or other health professional student that will be observing or involved in the sensitive examination for educational or training purposes was discussed with the Patient or Authorized Smart Energy Specialist. The Patient or Authorized Smart Energy Specialist has agreed to proceed with the sensitive examination. (Sensitive examination includes inspection and/or palpation of the breasts, pelvis, prostate and anorectal regions). PHYSICAL EXAM: BP 120/60 Ht 5' 4.291 (1.63m) Wt 135 lb (61.2kg) LMP 10/08/2023 BMI 22.96 kg/(m^2). GENERAL: pleasant in no apparent distress DERMATOLOGY: Normal, without lesions, non-icteric, and non-hirsute NECK: Supple, full range of motion, no adenopathy, and thyroid normal CHEST: Normal inspiratory effort BREAST: soft, non-tender, symmetric, no dominant mass, normal nipple-areolar complex, no lymphadenopathy, and no nipple discharge ABDOMEN: soft, non-tender, and no masses NEURO: alert and oriented x3,exam grossly non-focal PELVIS: External genitalia normal. Perineal body intact. No cervical lesions. + loose piece of skintissue about 1.5 cm noted to left vaginal wall/introitus, + condyloma acuminatum noted adjacent to introitus. Cervix closed. Uterus 10 week size. No adnexal masses or tenderness. Clinical Pelvimetry: Pelvimetry clinically assessed as adequate Limited OB ultrasound exam: single intrauterine and positive cardiac activity ASSESSMENT: 28 year old at 10w1d wks gestational age PLAN: 1) Patient oriented to practice. Patient given new OB orientation folder. Discussed nutrition, folic acid supplementation, dietary guidelines, exercise, smoking, alcohol, caffeine, and drug use. Discussed gestational weight gain guidelines. Discussed routine OB labs including STD/HIV. Discussed how to access Your guide to a health and the Clerk Entry Level. Discussed hemoglobin electrophoresis. Patient: Declines Reviewed midwifery and continuous improvement analyst services that are available. 2) Screening: Hemoglobin A1C: ordered Baby Aspirin: The patient has been counseled about the potential benefits of low dose aspirin in and our recommendation that this be offered to all patients, regardless of whether they meet the high risk criteria specified above. She Accepts Aneuploidy Screening: Discussed aneuploidy screening, nuchal translucency/first trimester early anatomy ultrasound and NIPT. The risks/benefits and limitations of NIPT/aneuploidy screening were reviewed including the potential for false negative and false positive results. The availability of genetic counseling was reviewed. Information on aneuploidy screening was provided. The patient chooses toproceed with First trimester early anatomy ultrasound (12-13w6d) and [id number]. Accepts potential out of pocket cost. Myriad Carrier Screening: Discussed myriad carrier screening. We discussed the availability of professional-society guided carrier screening and reviewed the conditions screened and limitations of screening. The availability of genetic counseling was reviewed. Information on carrier screening was provided. The patient Declines 3) Patient offered option of Virtual Visits. Patient unsure. May consider in future. ACTIVE PROBLEM LIST Encounter for Supervision of High Risk in First Trimester, Antepartum - 12/18/2023 Comment: Care Checklist Vaccines: [] Flu vaccine [] declined [] RSV vaccine 32 0/7 - 36 6/7 (Oct - Mar) [] declined [] COVID vaccine [] declined [] TDaP 27-36 [] declined First trimester: [x] Dating US [] 1st tri labs [x] Pap smear [] Carrier screening [] declined [] NIPT screening [] declined [] First trimester anatomy scan [] declined [] universal ASA ordered (start 12w-16w) [] declined [] M Power Consult [] not indicated [] declined Second trimester: [] AFP [] declined [] Anatomy scan [] Mode of Delivery - [] Feeding - [] Pump ordered [] Diabetes screen [] CBC, RPR Third trimester (28-30 weeks): [] Consent [] Contraception - [] Patch Machine Operator Third trimester (36-40 weeks): [] GBS [] Presentation - [] Scheduled [] yes - Hibiclens, pre-op instructions, CBC, T&S ordered [] no [] H&P History of Vacuum Extraction Assisted Delivery - 12/18/2023 Vaginal Bleeding Affecting Early - 12/18/2023 Comment: December 18, 2023 Went to ER. Resolved. Blane Bonner APRN.JUANITO Condyloma Acuminata of Vulva During in First Trimester - 12/18/2023 Ascus With Positive High Risk Hpv Cervical - 12/18/2023 Comment: December 18, 2023 Colpo 03/05/23. Repeat pap 1 year - done today. Blane Bonner APRN.JUANITO Family History of Autism - 12/18/2023 Comment: December 18, 2023 Son with autism and is non verbal. Blane Bonner APRN.RHEOSTAT ASSEMBLER Follow up in 3 weeks or sooner prn. Plan for NT scan between 12w0d and 13w6d gestation. Blane Bonner APRN.RHEOSTAT ASSEMBLER documented in this encounterOur [facility] Telephone encounter Note * Telephone Encounter - Basia Cortes RN - 12/17/2023 8:50 AM EDT Left message for patient to return phone call to complete nurse intake questions for her upcoming appointment. Patient has an appointment with Blane Bonner for NOB appointment tomorrow at 1:45. I can call her this afternoon or tomorrow morning to complete nurse intake questions [facility]10-23-2024 Miscellaneous Notes* Telephone Encounter - Basia Cortes RN - 12/17/2023 8:50 AM EDT Left message for patient to return phone call to complete nurse intake questions for her upcoming appointment. Patient has an appointment with Blane Bonner for NOB appointment tomorrow at 1:45. I can call her this afternoon or tomorrow morning to complete nurse intake questions documented in this encounterOur [facility] Hospital Discharge instructions* Discharge Instructions* Hardeep Wilson DO - 12/14/2023 10:22 PM EDT Pelvic rest until follow up with OBGYN. * Attachments The following attachments cannot be sent through Care Everywhere. * Bleeding in Early Discharge Instructions (Stateless) [facility]Do[facility] Work Phone: [phone] 990-338910-20-2024 Emergency department Note* Hardeep Wilson DO - 12/14/2023 10:00 PM EDT HPI Chief Complaint Patient presents with Vaginal Bleeding - Pt is 10 weeks , . Started after spotting after intercourse Limitations to History: None HPI: 28-year-old G2, P1 at 10 weeks presents with concern for vaginal bleeding. States that she hadscant vaginal bleeding following sex he will intercourse this evening. Denies any lower abdominal pain. Denies any nausea, vomiting, large loss of fluid. No previous issues with prior . Additional History Obtained from: Mother at the bedside. Physical Exam: VS: As documented in the triage note and EMR flowsheet from this visit were reviewed. Appearance: Alert. cooperative, in no acute distress. Skin: Intact, dry skin, no lesions, rash, petechiae or purpura. HENT: Normocephalic, atraumatic. Pulmonary: Clear bilaterally with good chest wall excursion. No rales, rhonchi or wheezing. No accessory muscle use or stridor. Cardiac: Regular rate and rhythm, no rubs, murmurs, or gallops. Abdomen: Abdomen is soft, nontender, and nondistended. No palpable organomegaly. No rebound or guarding. No CVA tenderness. Nonsurgical abdomen. Musculoskeletal: Full range of motion. Pulses full and equal. No cyanosis, clubbing, or edema. Psychiatric: Appropriate mood and affect. Patient History No past medical history on file. No past surgical history on file. No family history on file. Social History Tobacco Use Smoking status: Not on file Smokeless tobacco: Not on file Substance Use Topics Alcohol use: Not on file Drug use: Not on file Physical Exam ED Triage Vitals [12/14/232205] Temperature Heart Rate Respirations BP 37.4 C (99.3 F) 86 18 133/66 Pulse Ox Temp src Heart Rate Source Patient Position 99 % -- -- -- BP Location FiO2 (%) -- -- Physical Exam ED Course & MDM Diagnoses as of 12/14/232221 Vaginal bleeding during ([facility]) No data recorded Johana Coma Scale Score: 15 (12/14/232204 : Lane Lobo RN) Medical Decision Making Medical Decision Making: Patient appears well nontoxic. Benign abdominal exam. Bedside ultrasound shows intrauterine with normal heart rate. Patient advised on pelvic rest and follow-up with ROLL EDGE MACHINE OPERATOR. Stable at time of discharge. Escalation of Care: Appropriate for discharge and follow-up with ROLL EDGE MACHINE OPERATOR. Procedure Procedures Hardeep Wilson DO 12/14/232222 documented in this [facility] Work Phone: 1(169) 588-707110-20-2024 Physician Emergency department Note* Hardeep Wilson DO - 12/14/2023 10:00 PM EDT HPI Chief Complaint Patient presents with Vaginal Bleeding - Pt is 10 weeks , . Started after spotting after intercourse Limitations to History: None HPI: 28-year-old G2, P1 at 10 weeks presents with concern for vaginal bleeding. States that she hadscant vaginal bleeding following sex he will intercourse this evening. Denies any lower abdominal pain. Denies any nausea, vomiting, large loss of fluid. No previous issues with prior . Additional History Obtained from: Mother at the bedside. Physical Exam: VS: As documented in the triage note and EMR flowsheet from this visit were reviewed. Appearance: Alert. cooperative, in no acute distress. Skin: Intact, dry skin, no lesions, rash, petechiae or purpura. HENT: Normocephalic, atraumatic. Pulmonary: Clear bilaterally with good chest wall excursion. No rales, rhonchi or wheezing. No accessory muscle use or stridor. Cardiac: Regular rate and rhythm, no rubs, murmurs, or gallops. Abdomen: Abdomen is soft, nontender, and nondistended. No palpable organomegaly. No rebound or guarding. No CVA tenderness. Nonsurgical abdomen. Musculoskeletal: Full range of motion. Pulses full and equal. No cyanosis, clubbing, or edema. Psychiatric: Appropriate mood and affect. Patient History No past medical history on file. No past surgical history on file. No family history on file. Social History Tobacco Use Smoking status: Not on file Smokeless tobacco: Not on file Substance Use Topics Alcohol use: Not on file Drug use: Not on file Physical Exam ED Triage Vitals [12/14/232205] Temperature Heart Rate Respirations BP 37.4 C (99.3 F) 86 18 133/66 Pulse Ox Temp src Heart Rate Source Patient Position 99 % -- -- -- BP Location FiO2 (%) -- -- Physical Exam ED Course & MDM Diagnoses as of 12/14/232221 Vaginal bleeding during ([facility]) No data recorded Johana Coma Scale Score: 15 (12/14/232204 : Lane Lobo RN) Medical Decision Making Medical Decision Making: Patient appears well nontoxic. Benign abdominal exam. Bedside ultrasound shows intrauterine with normal heart rate. Patient advised on pelvic rest and follow-up with ROLL EDGE MACHINE OPERATOR. Stable at time of discharge. Escalation of Care: Appropriate for discharge and follow-up with ROLL EDGE MACHINE OPERATOR. Procedure Procedures Hardeep Wilson DO 12/14/232222 [facility] Work Phone: [phone]) 731-977201-10-2024 Instructions* Patient Instructions* Sandra Melgoza Ma - 03/05/2023 8:37 AM EST YOUR RECOVERY It may take a few weeks for your cervix to heal. While your cervix heals, you may have: - Vaginal bleeding (less than a normal menstrual period) - Mild cramping - A brown-black vaginal discharge (similar to coffee grounds) which is a result of the paste used to help stop bleeding from the procedure Do NOT put anything in the vagina for 1 week after your colposcopy if your doctor does a biopsy of your cervix. This includes sex, tampons, and douches. If you have any discomfort, you may take an over the counter pain medication (motrin, advil, ibuprofen, tylenol, etc). If this does not relieve your discomfort, contact your doctor's office for a prescription strength pain medication. It is okay to wear a sanitary pad until the discharge and spotting stops. RISKS Although problems seldom occur with colposcopy, there can be some complications. You may feel faintduring and shortly after the procedure as well as have some bleeding and vaginal discharge after the procedure. There is also a risk of infection after the procedure. These complications are rare andcan be easily treated. You should contact you doctor is you have any of the following: - Heavy bleeding (more than your normal period) - Bleeding with clots - Severe abdominal pain - Fever (more than 100.4F) - Foul smelling vaginal discharge RESULTS If a biopsy was taken, we will have the results of your biopsy in 1-2 weeks. If you do not hear theresults of your biopsy after 2 weeks, please contact your physicians office for the results. Depending on the biopsy results, your doctor will determine your follow up plan which may include further testing or treatments. STAYING HEALTHY After the procedure, you will need to see your doctor for follow up visits during the year. At these visits your doctor will check the health of your cervix with a pap smear. After three normal pap smears, your doctor will allow you to return to having exams once a year. If you have another abnormal pap smear, you may need closer follow up for longer or you may need additional treatment. By making a few lifestyle changes after the procedure, you can help protect the health of your cervix: - Have regular pelvic exams and pap smears as ordered by your doctor. - Stop smoking as smoking increases your risk of developing a cancer of the cervix - If you have more than one sexual partner, limit your number of partners and use condoms to reduceyour risks of STDs. If you have any additional questions, please contact your doctor's office. [facility] History of Present illness Narrative* Luli Monte MD - 03/05/2023 8:36 AM EST Postbed Stitcher offered: Patient declines. Alexia Gallardo is a 27 year old who presents today for a colposcopy. The patient's last pap smear was ASCUS with positive HPV from December 2022. Patient has a history of abnormal pap: No. The patient hashad prior treatment: none. test: negative UNIVERSAL PROTOCOL / SAFETY CHECKLIST Procedure to be Performed: Colposcopy Sign In: A Moment of CARE was completed. Personnel directly involved with the procedure wore the appropriate PPE (Personal Protective Equipment). Patient/Surrogate Stated/Verified: PATIENT VERIFIED(optional for EMERGENT procedures): Patient name, Date of , Relevant allergies, and The intended procedure Time Out Communication: Intended patient and procedure match the source documents. Consent documented and matches the intended procedure. Sign Out: SIGN OUT (optional for EMERGENT procedures): No specimen collected. PROCEDURE: EXTERNAL GENITALIA: Normal in appearance without lesions VAGINA: Normal in appearance without lesions CERVIX: Speculum placed in vagina and excellent visualization of cervix achieved. Cervix swabbed x 3 with 3% acetic acid solution. Cervix grossly normal. Squamocolumnar junction visualized. No acetowhite changes, punctations, mosaicism or atypical vasculature noted. BIOPSY: Not done. ECC: not done HEMOSTASIS: NA Procedure Summary: Patient tolerated procedure well and colposcopy was adequate. ASSESSMENT: ASCUS +HPV PLAN: Repeat pap in one year Luli Edward MD documented in this encounter[facility] Miscellaneous Notes* Telephone Encounter - Tara Nicholas RN - 01/31/2023 4:37 PM EST Patient notified and colposcopy scheduled. Tara Nicholas RN * Telephone Encounter - Tara Nicholas RN - 01/27/2023 9:33 AM EST Left message for patient to call office. Tara Nicholas RN * Telephone Encounter - Cecilia Solorzano APRN.CNP - 01/27/2023 7:04 AM EST Please let the pt know that her pap was ASCUS and HPV+, she will need a colp done. Order filed. 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 Menses: cycles every 28 days and 7 days of flow. Contraception: none HPV vaccine: No Last Pap: 01/02/2018 normal HPV: N/A History of abnormal pap: No Last mammogram: never Sexually active: Yes History of STDS: None Patient concerns for STD exposure: No. 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 History LMP: 01/04/2023, Having periods Age at Menarche: Age at First : Age at Menopause: Telecommunication Equipment Repairer History Comments: Sexual Activity: Yes; Male Contraception: None PAST MEDICAL HISTORY Diagnosis Date GERD (gastroesophageal reflux disease) PAST SURGICAL HISTORY Procedure Laterality Date PAST SURGICAL HISTORY OF Left 4 sutures to left foot laceration TONSILLECTOMY HX age 6 FAMILY HISTORY Problem Relation Age of Onset Heart Father MO Stroke Father Alcohol/Drug Mother ETOH Hypertension Mother Lipids Mother Colon Cancer Maternal Grandmother Heart Maternal Grandfather MO Diabetes Maternal Grandfather Heart Paternal Grandfather MO SOCIAL HISTORY Social History Tobacco Use Smoking status: Never Passive exposure: Never Smokeless tobacco: Never Vaping Use Vaping Use: Never used Substance Use Topics Alcohol use: No Drug use: No REVIEW OF SYSTEMS Abdomen: No abdominal pain, nausea, vomiting, diarrhea, or constipation. No bloating, early satiety, indigestion, or increased flatulence. Bladder: No dysuria, gross hematuria, urinary frequency, urinary urgency, or incontinence. Breast: No breast lumps, nipple d/c, overlying skin changes, redness or skin retraction. Allergies and current medication updated:Yes EXAM: Ht 5' 4 (1.63m) Wt 149 lb 9.6 oz (67.9kg) LMP 01/04/2023 BMI 25.67 kg/(m^2). GENERAL: pleasant, female in no apparent distress HEENT: Normocephalic, atraumatic, mucus membranes moist, and no lesions NECK: Supple, full range of motion, no adenopathy, and thyroid normal DERMATOLOGY: Normal, without lesions, non-icteric, and non-hirsute BREAST: soft, non-tender, symmetric, no dominant mass, normal nipple-areolar complex, no lymphadenopathy, and no nipple discharge CHEST: Normal inspiratory effort ABDOMEN: soft, non-tender, and no masses PELVIC: external genitalia normal, normal Bartholin's glands, urethra, Nitro's glands, no cervical lesions, good vaginal support, physiologic discharge present, normal appearing perineal body and perianal region, vulvar lesion 3 genital warts BIMANUAL: uterus normal size, shape and consistency, no adnexal masses, and non-tender RECTOVAGINAL: deferred. NEURO: alert and oriented x3,exam grossly non-focal EXTREMITIES: normal ASSESSMENT/PLAN: 1) Health maintenance: Pap done with reflex HPV. Mammogram starting age 40. Nutrition, exercise and routine health maintenance exams reviewed. Calcium/Vitamin D supplementation information provided. 2) Contraception: Phexxi. Contraceptive options reviewed and information provided. 3) STD screening: Accepted STD check for Gonorrhea and Chlamydia. 4) Follow up one year or sooner as needed Cecilia Solorzano APRN.JUANITO INFORMED CONSENT Alexia Hummel, : 1995, Procedure: TCA application The risks, benefits and anticipated outcomes of the procedure, the risks and benefits of the alternatives to the procedure and the roles and tasks of the personnel to be involved were discussed with the patient and the patient consents to the procedure and agrees to proceed. I verify that I personally obtained Alexia Hummel's consent. Cecilia Solorzano CNP, Dept of OB/GYNECOLOGY INFORMED CONSENT Alexia Hummel Medical Record: [id number] TCA treatment The risks, benefits and anticipated outcomes of the procedure, the risks and benefits of the alternatives to the procedure and the roles and tasks of the personnel to be involved were discussed with the patient and the patient consents to the procedure and agrees to proceed. I verify that I personally obtained Alexia Hummel's consent. Cecilia Solorzano APRN.JUANITO January 09, 2023 2:26 PM Dept of OB/GYNECOLOGY UNIVERSAL PROTOCOL / SAFETY CHECKLIST Procedure to be Performed: TCA treatment Sign In: A Moment of CARE was completed. Personnel directly involved with the procedure wore the appropriate PPE (Personal Protective Equipment). Patient/Surrogate Stated/Verified: PATIENT VERIFIED(optional for EMERGENT procedures): Patient name, Date of , Relevant allergies, and The intended procedure Time Out Communication: Intended patient and procedure match the source documents. Consent documented and matches the intended procedure. Sign Out: SIGN OUT (optional for EMERGENT procedures): No specimen collected. Post-procedure follow-up management communicated and Plan of Care Visit completed when applicable. Cecilia Solorzano APRN.CNP Vulva: 3 lesion(s) noted and treated with 85% TCA on the mons pubis and lower left labia. Size ranges from 1-2mm. Treated with TCA. Patient tolerated procedure well. IMP: genital warts I have reviewed and updated past medical and surgical history, medications and allergies. Cecilia Solorzano APRN.JUANITO documented in this encounterOur [facility]11-15-2016 History of Past illness Narrative* Problem Noted Date Diagnosed Date Resolved Date Encounter for supervision of normal first in first trimester 01/09/2016 09/30/2016 Patient requested diagnostic testing 12/28/2015 02/07/2016 Overview: 12/28/2015Pt desires nuchal ultrasound. TKRN documented as of this encounter (statuses as of 01/09/2023) [facility] History of Past illness Narrative* Problem Noted Date Diagnosed Date Resolved Date Encounter for supervision of normal first in first trimester 01/09/2016 09/30/2016 Patient requested diagnostic testing 12/28/2015 02/07/2016 Overview: 12/28/2015Pt desires nuchal ultrasound. TKRN documented as of this encounter (statuses as of 02/01/2023) [facility] History of Past illness Narrative* Problem Noted Date Diagnosed Date Resolved Date Encounter for supervision of normal first in first trimester 01/09/2016 09/30/2016 Patient requested diagnostic testing 12/28/2015 02/07/2016 Overview: 12/28/2015Pt desires nuchal ultrasound. TKRN documented as of this encounter (statuses as of 03/05/2023) [facility] Author Eze Robbins [facility] January 06, 2023 11:44am Note Date/Time January 06, 2023 11:17am [facility] Medical Records Department [address] [place] [address] Emergency Department Summary 01/06/23 MR#: [id number] Acct: [id number] Name: ALEXIA HUMMEL Rep #:[id number] : 1995 27 From: Eze Robbins MD PCP: Care Physician,No Primary Status :REG ER Location: ED HPI <JACOBY Sapp - Last Filed: 01/06/23 11:33> History of Present Illness Chief Complaint: Wound Check Narrative Narrative: 27-year-old female had sutures removed from her left foot on December 31. Over the last couple days it looked red and pus drained from it yesterday. She put peroxide on it and it seems better today but she is here to be evaluated. No fever or chills. She states her right ear also hurts over the last few days. No cold symptoms PFSH <JACOBY Sapp - Last Filed: 01/06/23 11:33> PFSH Home Medications cephalexin 500 mg capsule 500 mg PO Q6 #28 CAPSULES 01/06/23 [Rx Last Taken Unknown] Allergy/AdvReac Type Severity Reaction Status Date / Time No Known Allergies Allergy Verified 01/06/23 10:52 Surgical History History of tonsillectomy Social History Smoking Status: Never smoker ROS <JACOBY Sapp - Last Filed: 01/06/23 11:33> ROS ED ROS Narrative Constitutional: Negative for fever, chills, malaise. ENT: Positive for ear pain. Negative for sore throat, rhinorrhea. Neuro: Negative for motor/sensory dysfunction. Skin: Positive for wound. EXAM <JACOBY Sapp - Last Filed: 01/06/23 11:33> Physical Exam Narrative Exam Narrative: CONST: Patient sitting in no acute distress. EYES: Normal inspection. NECK: Normal inspection. ENT: Normal TMs bilaterally, nares clear, normal posterior oropharynx. RESP: No respiratory distress, CTAB. CVS: Regular rate and rhythm, no murmur, no gallop. SKIN: 3 cm healing linear wound dorsal left midfoot with minimal halo of erythema that looks more like healing granulation tissue than infected. No fluctuance or crepitus, no drainage. EXTREMITIES: Normal appearance, 2+ DP pulses NEURO: Oriented x4. PSYCH: Normal affect. Const Vital Signs: 01/06/23 10:52 Temperature 96.5 F L Temperature Source Temporal Pulse Rate 74 Respiratory Rate 18 Blood Pressure 118/82 H Blood Pressure Mean 94 Pulse Ox 100 Oxygen Delivery Method Room Air <Dr. Eze Robbins MD - Last Filed: 01/06/23 11:44> Physical Exam Const Vital Signs: 01/06/23 10:52 Temperature 96.5 F L Temperature Source Temporal Pulse Rate 74 Respiratory Rate 18 Blood Pressure 118/82 H Blood Pressure Mean 94 Pulse Ox 100 Oxygen Delivery Method Room Air MDM <JACOBY Sapp - Last Filed: 01/06/23 11:33> [facility] Narrative Medical decision making narrative: Patient has a healing wound on left dorsal foot where she had prior sutures. She states pus drained from the area yesterday. There is no evidence of an abscess now. There is minimal surrounding erythema which could be normal healing versus cellulitis. Extremity is neurovascularly intact. I prescribed Keflex with wound care instructions. She also complained of right ear pain but has an unremarkable exam. I recommended Tylenol Motrin and she was discharged in stable condition. <Dr. Eze Robbins MD - Last Filed: 01/06/23 11:44> [facility] Narrative Medical decision making narrative: Patient has a healing wound on left dorsal foot where she had prior sutures. She states pus drained from the area yesterday. There is no evidence of an abscess now. There is minimal surrounding erythema which could be normal healing versus cellulitis. Extremity is neurovascularly intact. I prescribed Keflex with wound care instructions. She also complained of right ear pain but has an unremarkable exam. I recommended Tylenol Motrin and she was discharged in stable condition. I have personally performed a face to face assessment of the patient and have reviewed the MARTI Note. I performed a substantive portion of the visit including all aspects of the following. My thomas findings include: History is 27-year-old female returns for suture removal of the laceration pair of her left foot. Exam is [well-appearing 27-year-old female. Vital signs stable afebrile. Left foot has a well-healed laceration. Currently there is no signs of infection. There is no redness or pus. There is no significant swelling. There is no streaks. Normal DP pulse. She cannot wiggle her left small and fourth toe very well. She will follow-up with that if it does not improve. There was no history of any tendon laceration.] Medical Decision Making [patient be placed on Keflex for 1 week. Outpatient follow-up as needed if she has not had normal range of motion back to her left lateral toes.] Other additions or changes: [None] Discharge Plan Triage Chief Complaint: Wound Check Other Complaint: Ear Problem ED Midlevel Provider: Michelle Zuñiga ED Provider: Eze Robbins Dx/Rx/DC Orders Clinical Impression: Wound of left foot Instructions: Caring for Your Incision Prescriptions: New cephalexin 500 mg capsule 500 mg PO Q6 Qty: 28 0RF Primary Care Provider: Care Physician,No Primary Referrals: Care Physician,No Primary [Primary Care Provider] - Activity Restrictions/Additional Instructions: Gently clean with soap and water and take the antibiotics. If you develop worsening redness, swelling, or fever return to the ER Disposition Disposition: Home, Self Care What to do if you have Problems For any increased pain, shortness of breath, bleeding, nausea or vomiting, chestpain, or any unexpected problems, contact your Primary Care Provider. Call [facility] ([phone]) or report to the closest Emergency Room. Call 911 if necessary. 01/06/23 3983 <Electronically signed by Eze Robbins MD> Cosigner Signature (if applicable): 01/06/23 1133 <Electronically signed by Michelle DOZIER> CC: No Primary Care Physician ~ Signed [facility] Work Phone: Evaluation noteNo assessment information available [facility] Work Phone: Evaluation note* Diagnosis Encounter for gynecological examination (general) (routine) without abnormal findings- Primary Screening for cervical cancer Screening for malignant neoplasm of the cervix Encounter for screening for human papillomavirus (HPV) Special screening examination for human papillomavirus (HPV) Screen for STD (sexually transmitted disease) Screening examination for venereal disease Encounter for initial prescription of other contraceptives Genital warts Condyloma acuminatum documented [facility] this [facility] Diagnosis ASCUS with positive high risk HPV cervical- Primary Cervical high risk human papillomavirus (HPV) DNA test positive [facility] Diagnosis ASCUS with positive high risk HPV cervical- Primary Cervical high risk human papillomavirus (HPV) DNA test positive documented in this encounter [facility] note* Diagnosis Vaginal bleeding during (HHS-HCC)- Primary documented in this encounter [facility] Work Phone: Evaluation note* Diagnosis Encounter for supervision of high risk in first trimester, antepartum- Primary 10 weeks gestation of state, incidental with uncertain dates in first trimester Screening for cervical cancer Screening for malignant neoplasm of the cervix History of vacuum extraction assisted delivery Other postprocedural status ASCUS with positive high risk HPV cervical Cervical high risk human papillomavirus (HPV) DNA test positive Vaginal bleeding affecting early Condyloma acuminata of vulva during in first trimester Family history of autism Family history of psychiatric condition documented in this encounter [facility]* Diagnosis Chlamydia infection affecting in first trimester- Primary Exposure to chlamydia Contact with or exposure to venereal diseases documented in this encounter [facility]* Diagnosis Encounter for supervision of high risk in first trimester, antepartum- Primary 12 weeks gestation of state, incidental [facility]* Diagnosis Encounter for screening for malformation using ultrasound- Primary 12 weeks gestation of state, incidental [facility] this [facility] Diagnosis Encounter for supervision of high risk in first trimester, antepartum- Primary Chlamydia infection affecting in first trimester Condyloma acuminata of vulva during in first trimester ASCUS with positive high risk HPV cervical Cervical high risk human papillomavirus (HPV) DNA test positive History of vacuum extraction assisted delivery Other postprocedural status 16 weeks gestation of state, incidental documented [facility] this encounter [facility]* Diagnosis Abdominal cramping complicating (HHS-HCC)- Primary documented in this encounter [facility] Work Phone: Evaluation note* Diagnosis Supervision of high risk in second trimester- Primary Unspecified high-risk 20 weeks gestation of state, incidental Chlamydia infection affecting in first trimester History of vacuum extraction assisted delivery Other postprocedural status [facility] Diagnosis Encounter for anatomic survey- Primary 20 weeks gestation of state, incidental [facility] Diagnosis Supervision of high risk in second trimester- Primary Unspecified high-risk 24 weeks gestation of state, incidental History of vacuum extraction assisted delivery Other postprocedural status Screening for diabetes mellitus Chlamydia infection affecting in first trimester [facility] Diagnosis with uncertain dates in first trimester [facility] Diagnosis Supervision of high risk in third trimester- Primary Unspecified high-risk 28 weeks gestation of state, incidental [facility] Diagnosis Supervision of high risk in third trimester- Primary Unspecified high-risk 30 weeks gestation of state, incidental [facility] Diagnosis Supervision of high risk in third trimester (HCC)- Primary Unspecified high-risk History of vacuum extraction assisted delivery Other postprocedural status 32 weeks gestation of (HCC) state, incidental [facility] Supervision of high risk in third trimester (HCC)- Primary Unspecified high-risk History of vacuum extraction assisted delivery Other postprocedural status 34 weeks gestation of (HCC) state, incidental [facility]* Diagnosis 36 weeks gestation of (HCC)- Primary state, incidental Supervision of high risk in third trimester (HCC) Unspecified high-risk History of vacuum extraction assisted delivery Other postprocedural status documented [facility] Diagnosis Supervision of high risk in third trimester (HCC)- Primary Unspecified high-risk 37 weeks gestation of (HCC) state, incidental History of vacuum extraction assisted delivery Other postprocedural status Chlamydia infection affecting in first trimester (HCC) documented [facility]* Diagnosis 38 weeks gestation of (HCC)- Primary state, incidental Supervision of high risk in third trimester (HCC) Unspecified high-risk History of vacuum extraction assisted delivery Other postprocedural status documented [facility]* Diagnosis 39 weeks gestation of (HCC)- Primary state, incidental Supervision of high risk in third trimester (HCC) Unspecified high-risk documented [facility]* Diagnosis Supervision of high risk in third trimester (HCC)- Primary Unspecified high-risk 40 weeks gestation of ([facility]) state, incidental History of vacuum extraction assisted delivery Other postprocedural status Chlamydia infection affecting in first trimester ([facility]) [facility] Additional Instructions Stitches will need to be removed in 10 days. Please keep wound clean. Showers and soap are fine. I would apply an antibiotic ointment at least once a day. While wearing socks and shoes please keep a dressing on the wound.[facility] Work Phone: Hospital Discharge instructions Additional Instructions Gently clean with soap and water and take the antibiotics. If you develop worsening redness, swelling, or fever return to the [facility] Work Phone: Hospital Discharge instructions* Attachments The following attachments cannot be sent through Care Everywhere. * symptoms (Stateless) [facility] Additional Instructions I recommend you see a licensed development editor to have these removed. They do not look currently infected.[facility] Work Phone: Reason for referral (narrative)* Outpatient Procedure (Routine) - Pending Review Specialty Diagnoses / Procedures Referred By Mckayla t Referred To Contact [facility] Diagnoses ASCUS with positive high risk HPV cervical Procedures COLPOSCOPY COLPOSCOPY CERVIX BX CERVIX & ENDOCRV CURRETAGE Cecilia Solorzano APRN.CNP [address] [place] [address] [address] Referral ID Status Reason Start Date Expiration Date Visits Requested Visits Authorized [id number] Pending Review Auto-Generat ed Referral 01/27/2023 01/27/2024 1 1 [facility] for referral (narrative)* Outpatient Procedure (Routine) - Pending Review Specialty Diagnoses / Procedures Referred By Contac t Referred To Contact [facility] Diagnoses ASCUS with positive high risk HPV cervical Procedures COLPOSCOPY COLPOSCOPY CERVIX BX CERVIX & ENDOCRV CURRETAGE Luli Monte MD [address] [place] [address] [address] Referral ID Status Reason Start Date Expiration Date Visits Requested Visits Authorized [id number] Pending Review Auto-Generat ed Referral 03/05/2023 03/04/2024 1 1 [facility] for referral (narrative)* Diagnostic Procedure Only (Routine) - Authorized Specialty Diagnoses / Procedures Referred By Contac t Referred To Contact [facility] Diagnoses Encounter for supervision of high risk in first trimester, antepartum 10 weeks gestation of Procedures NUCHAL TRANSLUCENCY WHI US NUCHAL TRANSLUCENCY 1ST GESTATION Blane Bonner APRN.CNP [address] [place] [address] [address] Referral ID Status Reason Start Date Expiration Date Visits Requested Visits Authorized [id number] Authorized Auto-Generat ed Referral 4 12/17/2024 1 1 * Diagnostic Procedure Only (Routine) - Authorized Specialty Diagnoses / Procedures Referred By Mckayla t Referred To Contact [facility] Diagnoses with uncertain dates in first trimester Procedures OBSTETRIC ULTRASOUND WHI US PREG UTERUS AFTER 1ST TRIMEST GESTATION Blane Bonner APRN.CNP [address] [place] [address] [facility] [address] [place] [address] Referral ID Status Reason Start Date Expiration Date Visits Requested Visits Authorized [id number] Authorized Auto-Generat ed Referral 4 12/17/2024 1 1 [facility]No reason for referral information availableWWilson [facility] Work Phone: Chief Complaint and Reason for Visit Chief Complaint lower extremity Chief Complaint lower extremity wound check, ear pain Chief Complaint Admit Date WOUND May 08, 2024 4:0 8pm Chief Complaint Admit Date WOUND May 08, 2024 4:0 8pm VAG July 21, 2024 7:17a m Reason for Visit Admit Date 41 weeks gestation of June 7:17am Encounter for induction of labor June 7:17am First degree perineal laceration June 7:17am History of chlamydia July 21, 2024 7:17 am History of vacuum extraction assisted de livery July 21, 2024 7:17am Post-dates July 21, 2024 7:17 am Vaginal delivery July 21, 2024 7:17a m Advance Directives No Advanced Directives Records Found Advance Directive Response Recorded Date/ Time Living Will No December 21 9:41am Power of Cnc Manager No December 21, 2022 9:41am Advance Directive Response Recorded Date/ Time Living Will No November 13th, 2 023 12:02pm Power of Cnc Manager No January 06, 2023 12:02pm Advance Directive Response Recorded Date/ Time Living Will No May 08, 2024 4:27pm Power of Cnc Manager No May 08 4:27pm Advance Directive Response Recorded Date/ Time Living Will No May 08, 2024 4:27pm Do you have a Healthcare Power of Cnc Manager? No May 08, 2024 4:27pm Do you have a Healthcare Power of Cnc Manager? No July 21, 2024 7:46am Reason for Referral Specialty Diagnoses / Procedures Referred By Contac t Referred To Contact Diagnoses Encounter for initial prescription of other contraceptives Cecilia Solorzano APRN.RHEOSTAT ASSEMBLER [address] [place] [address] Referral ID Status Reason Start Date Expiration Date V isits Requested Visits Authorized [id number] Authorized 01/09/2023 01/10/2024 1 1 Summary Purpose Family History No Family History Records FoundNo Family History Records FoundNo Family History Records Found Additional Source Comments Care Teams (unrecognized sec tion and content) Team Status: Active Member Role Status Dates No Primary Care Physician Family Provider Active No Primary Care Physician Primary Care Provider Active Team Status: Inactive Member Role Status Dates No Primary Care Physician Primary Care Provider Active Dr. Nam Malone DO Emergency Provider Active Team Status: Inactive Member Role Status Dates No Primary Care Physician Primary Care Provider Active Dr. Nam Malone DO Attending Provider, Emergency P vale Active Team Status: Inactive Member Role Status Dates No Primary Care Physician Primary Care Provider Active Dr. Eze Robbins MD Emergency Provider Active Tube Inspector Relationship Specialty Start Date End Date Generic Provider, [place] [place] [address] PCP - General Field Talent Qualification Specialist 12/14/23 Tube Inspector Relationship Specialty Start Date End Date Generic Provider, No [place] [address] PCP - General Field Talent Qualification Specialist 12/14/23 Team Status: Active Member Role Status Dates No Primary Care Physician Primary Care Provider Active Team Status: Inactive Member Role Status Dates No Primary Care Physician Primary Care Provider Active Start: May 08, 2024 End: May 08, 2024 Dr. Eze Robbins MD Emergency Provider Active S tart: May 08, 2024 End: May 08, 2024 Team Status: Inactive Member Role Status Dates No Primary Care Physician Primary Care Provider Active Start: May 08, 2024 End: May 08, 2024 Dr. Eze Robbins MD Attending Provider Active S tart: May 08, 2024 End: May 08, 2024 Dr. Eze Robbins MD Emergency Provider Active S tart: May 08, 2024 End: May 08, 2024 Team Status: Inactive Member Role Status Dates No Primary Care Physician Primary Care Provider Active Start: July 21, 2024 End: July 23, 2024 Azalia Cm CNM Admit Provider Active Start: July 21, 2024 End: July 23, 2024 Azalia Cm CNM Attending Provider Active St art: July 21, 2024 End: July 23, 2024 Azalia Cm CNM Referring Provider Active St art: July 21, 2024 End: July 23, 2024 Goals (unrecognized section and content) Goals may be documented in a n alternate sectionGoals may be documented in an alternate sectionGoals may be documented in an alternate section Source Comments (unrecognize d section and content) In the event this informatio n is protected by the Federal Confidentiality of Alcohol and Drug Abuse Patient Records regulations: The Federal rules restrict any use of the information to criminally investigate or prosecute any alcohol or drug abuse patient.[facility] the event this information is protected by the Federal Confidentiality of Alcohol and Drug Abuse Patient Records regulations: The Federal rules restrict any use of the information to criminally investigate or prosecute any alcohol or drug abuse patient.[facility] the event this information is protected by the Federal Confidentiality of Alcohol and Drug Abuse Patient Records regulations: The Federal rules restrict any use of the information to criminally investigate or prosecute any alcohol or drug abuse patient.[facility] the event this information is protected by the Federal Confidentiality of Alcohol and Drug Abuse Patient Records regulations: The Federal rules restrict any use of the information to criminally investigate or prosecute any alcohol or drug abuse patient.[facility] the event this information is protected by the Federal Confidentiality of Alcohol and Drug Abuse Patient Records regulations: The Federal rules restrict any use of the information to criminally investigate or prosecute any alcohol or drug abuse patient.[facility] the event this information is protected by the Federal Confidentiality of Alcohol and Drug Abuse Patient Records regulations: The Federal rules restrict any use of the information to criminally investigate or prosecute any alcohol or drug abuse patient.[facility] the event this information is protected by the Federal Confidentiality of Alcohol and Drug Abuse Patient Records regulations: The Federal rules restrict any use of the information to criminally investigate or prosecute any alcohol or drug abuse patient.[facility] the event this information is protected by the Federal Confidentiality of Alcohol and Drug Abuse Patient Records regulations: The Federal rules restrict any use of the information to criminally investigate or prosecute any alcohol or drug abuse patient.[facility] the event this information is protected by the Federal Confidentiality of Alcohol and Drug Abuse Patient Records regulations: The Federal rules restrict any use of the information to criminally investigate or prosecute any alcohol or drug abuse patient.[facility] the event this information is protected by the Federal Confidentiality of Alcohol and Drug Abuse Patient Records regulations: The Federal rules restrict any use of the information to criminally investigate or prosecute any alcohol or drug abuse patient.[facility] the event this information is protected by the Federal Confidentiality of Alcohol and Drug Abuse Patient Records regulations: The Federal rules restrict any use of the information to criminally investigate or prosecute any alcohol or drug abuse patient.[facility] the event this information is protected by the Federal Confidentiality of Alcohol and Drug Abuse Patient Records regulations: The Federal rules restrict any use of the information to criminally investigate or prosecute any alcohol or drug abuse patient.[facility] the event this information is protected by the Federal Confidentiality of Alcohol and Drug Abuse Patient Records regulations: The Federal rules restrict any use of the information to criminally investigate or prosecute any alcohol or drug abuse patient.[facility] the event this information is protected by the Federal Confidentiality of Alcohol and Drug Abuse Patient Records regulations: The Federal rules restrict any use of the information to criminally investigate or prosecute any alcohol or drug abuse patient.[facility] the event this information is protected by the Federal Confidentiality of Alcohol and Drug Abuse Patient Records regulations: The Federal rules restrict any use of the information to criminally investigate or prosecute any alcohol or drug abuse patient.[facility] the event this information is protected by the Federal Confidentiality of Alcohol and Drug Abuse Patient Records regulations: The Federal rules restrict any use of the information to criminally investigate or prosecute any alcohol or drug abuse patient.[facility] the event this information is protected by the Federal Confidentiality of Alcohol and Drug Abuse Patient Records regulations: The Federal rules restrict any use of the information to criminally investigate or prosecute any alcohol or drug abuse patient.[facility] the event this information is protected by the Federal Confidentiality of Alcohol and Drug Abuse Patient Records regulations: The Federal rules restrict any use of the information to criminally investigate or prosecute any alcohol or drug abuse patient.[facility] the event this information is protected by the Federal Confidentiality of Alcohol and Drug Abuse Patient Records regulations: The Federal rules restrict any use of the information to criminally investigate or prosecute any alcohol or drug abuse patient.[facility] the event this information is protected by the Federal Confidentiality of Alcohol and Drug Abuse Patient Records regulations: The Federal rules restrict any use of the information to criminally investigate or prosecute any alcohol or drug abuse patient.[facility] the event this information is protected by the Federal Confidentiality of Alcohol and Drug Abuse Patient Records regulations: The Federal rules restrict any use of the information to criminally investigate or prosecute any alcohol or drug abuse patient.[facility] the event this information is protected by the Federal Confidentiality of Alcohol and Drug Abuse Patient Records regulations: The Federal rules restrict any use of the information to criminally investigate or prosecute any alcohol or drug abuse patient.[facility] the event this information is protected by the Federal Confidentiality of Alcohol and Drug Abuse Patient Records regulations: The Federal rules restrict any use of the information to criminally investigate or prosecute any alcohol or drug abuse patient.[facility] the event this information is protected by the Federal Confidentiality of Alcohol and Drug Abuse Patient Records regulations: The Federal rules restrict any use of the information to criminally investigate or prosecute any alcohol or drug abuse patient.[facility] the event this information is protected by the Federal Confidentiality of Alcohol and Drug Abuse Patient Records regulations: The Federal rules restrict any use of the information to criminally investigate or prosecute any alcohol or drug abuse patient.[facility] the event this information is protected by the Federal Confidentiality of Alcohol and Drug Abuse Patient Records regulations: The Federal rules restrict any use of the information to criminally investigate or prosecute any alcohol or drug abuse patient.[facility] the event this information is protected by the Federal Confidentiality of Alcohol and Drug Abuse Patient Records regulations: The Federal rules restrict any use of the information to criminally investigate or prosecute any alcohol or drug abuse patient.[facility] the event this information is protected by the Federal Confidentiality of Alcohol and Drug Abuse Patient Records regulations: The Federal rules restrict any use of the information to criminally investigate or prosecute any alcohol or drug abuse patient.[facility] the event this information is protected by the Federal Confidentiality of Alcohol and Drug Abuse Patient Records regulations: The Federal rules restrict any use of the information to criminally investigate or prosecute any alcohol or drug abuse patient.[facility] the event this information is protected by the Federal Confidentiality of Alcohol and Drug Abuse Patient Records regulations: The Federal rules restrict any use of the information to criminally investigate or prosecute any alcohol or drug abuse patient.[facility] the event this information is protected by the Federal Confidentiality of Alcohol and Drug Abuse Patient Records regulations: The Federal rules restrict any use of the information to criminally investigate or prosecute any alcohol or drug abuse patient.[facility] the event this information is protected by the Federal Confidentiality of Alcohol and Drug Abuse Patient Records regulations: The Federal rules restrict any use of the information to criminally investigate or prosecute any alcohol or drug abuse patient.[facility] Reason for Visit (unrecogniz ed section and content) Reason Comments Yearly Exam Reason Comments Results Reason Comments Colposcopy Specialty Diagnoses / Procedures Referred By Mckayla t [facility] Diagnoses ASCUS with positive high risk HPV cervical Procedures COLPOSCOPY COLPOSCOPY CERVIX BX CERVIX & ENDOCRV CURRETAGE Cecilia Solorzano, INSTITUTIONAL NUTRITION CONSULTANT.RHEOSTAT ASSEMBLER [address] [place] [address] [address] Referral ID Status Reason Start Date Expiration Date V isits Requested Visits Authorized [id number] Closed Auto-Generate d Referral 03/05/2023 06/03/2023 1 1 Reason Comments Vaginal Bleeding - Pt is 10 wee ks , . Started after spotting after intercourse Reason Comments Initial OB Visit Reason Comments Appointment Reason Comments PRAF Reason Comments Results Reason Onset Date Comments Care 01/05/2024 Reason Comments US Specialty Diagnoses / Procedures Referred By Contac t Referred To Contact [facility] Diagnoses Encounter for supervision of high risk in first trimester, antepartum 10 weeks gestation of Procedures NUCHAL TRANSLUCENCY WHI US NUCHAL TRANSLUCENCY 1ST GESTATION Blane Bonner APRN.RHEOSTAT ASSEMBLER [address] [place] [address] [address] Referral ID Status Reason Start Date Expiration Date V isits Requested Visits Authorized [id number] Closed Auto-Generate d Referral 12/18/2023 12/17/2024 1 1 Reason Comments Abdominal Pain Ongoing abd cramping that has been worse the past hour. 17 weeks . Denies vag bleeding or discharge Reason Onset Date Comments Care 03/01/2024 Specialty Diagnoses / Procedures Referred By Contac t Referred To Contact [facility] Diagnoses with uncertain dates in first trimester Procedures OBSTETRIC ULTRASOUND WHI US PREG UTERUS AFTER 1ST TRIMEST GESTATION Blane Bonner APRN.RHEOSTAT ASSEMBLER [address] [place] [address] [address] Referral ID Status Reason Start Date Expiration Date V isits Requested Visits Authorized [id number] Closed Auto-Generate d Referral 12/18/2023 12/17/2024 1 1 Reason Onset Date Comments Care 03/29/2024 Reason Onset Date Comments Refill Request 04/15/2024 Reason Comments breast pump Reason Onset Date Comments Care 05/10/2024 Reason Onset Date Comments Care 05/24/2024 Reason Onset Date Comments Care 06/07/2024 Reason Onset Date Comments Care 06/21/2024 Reason Onset Date Comments Care 06/29/2024 Reason Onset Date Comments Population Health Navigation Outreach 07/02/2024 Ob/peds Reason Onset Date Comments Care 07/05/2024 Reason Onset Date Comments Care 07/12/2024 Reason Comments Ob Delivery Note Scheduled Active and Recently Administ ered Medications (unrecognized section and content) Medication Order 02/04/2024 02/05/2024 02/06/2024 acetaminophen (Tylenol) tablet 650 mg (COMPLETED) 650 mg, oral, Once, On Fri02/06/24 at 1610, For 1 dose, If ordered PRN for pain, nurse is permitted to administer this medication for higher pain scores based on patient preference? Yes 1619 (Given - Provid er: Velma Bee RN) INFORMATION SOURCE (unrecogn ized section and content) DATE CREATED AUTHOR 02/15/2024 [facility] DATE CREATED AUTHOR AUTHOR'S ORGANIZ ATION 07/23/2024 [facility] DATE CREATED AUTHOR AUTHOR'S ORGANIZ ATION 07/29/[address] [facility] FOR RECORDS PERTAINING TO PATIENTS WHO ARE OR HAVE BEEN ENROLLED IN A CHEMICAL DEPENDENCY/SUBSTANCEABUSE PROGRAM, SOME INFORMATION MAY BE OMITTED. This clinical summary was aggregated from multiple sources. Caution should be exercised in using it in the provision of clinical care. This summary normalizes information from multiple sources, and as a consequence, information in this document may materially change the coding, format and clinical context of patient data. In addition, data may be omitted in some cases. CLINICAL DECISIONS SHOULD BE BASED ON THE PRIMARY CLINICAL RECORDS. [employer] provides no warranty or guarantee of the accuracy or completeness of information in this document.
[2024-08-01 20:00] VITALS: BP 122/76; PULSE 90; RESP 16; TEMP 37.1; O2SAT 98
== END 2024-08-01 20:01 | disposition home or self-care (01) ==
PROVIDERS: Emergency Provider Emergency Medicine; Referring Provider Emergency Medicine; Visit Provider Emergency Medicine
DX: M79.89 Other specified soft tissue disorders (principal); W49.04XA Ring or other jewelry causing external constriction, initial encounter
CPT/HCPCS: 99282